=== PATIENT | male | born 1975 | race Caucasian/White ===

== ENCOUNTER 2018-01-25 16:34 | Observation (INO) | payer OTHER ==
[2018-01-25] MEDS ORDERED: MAGNE/ALUM HYDROXD 30 ML UCUP ONE (17:38)
[2018-01-25] MEDS ORDERED: PANTOPRAZOLE 40 MG INJ ONE ×2 (17:38→20:00)
[2018-01-25] MEDS ORDERED: LIDOCAINE VISCOUS 2% SOLN 15 ML UDC ONE (17:39)
[2018-01-25] MEDS ORDERED: ONDANSETRON 4 MG/2 ML VIAL ONE (17:39)
--- NOTE | 2018-01-25 18:03 | EDPHYS ---
Physician Documentation [facility] Unit Name: Venancio Pardo II Age: 42 yrs Sex: Male : 1975 Arrival Date: 01/25/2018 Time: 16:37 Bed 15 Private MD: Jose Juan Marie H ED Physician Lowell Yip HPI: 01/25 17:29 This 42 yrs old Male presents to ER via Ambulatory with complaints of rn Vomiting blood. 17:29 The patient presents to the emergency department vomiting blood. Onset: The rn symptoms/episode began/occurred yesterday. Abdominal pain: described as burning, located in the epigastric area. Modifying factors: The symptoms are alleviated by nothing, the symptoms are aggravated by nothing. Severity of symptoms: At their worst the symptoms were moderate in the emergency department the symptoms are unchanged. The patient has not experienced similar symptoms in the past. The patient has been recently seen by a physician:. Told to come to ER by Dr. Us, has thrown up bright red blood 3 times, + epigastric burning, scheduled for EGD Wednesday. . Historical: - Allergies: 17:12 NKDA; ph - Home Meds: 17:12 Glimepiride Oral [Active]; Hydrochlorothiazide Oral once daily [Active]; levothyroxine ph oral [Active]; Metformin Oral [Active]; phentermine oral oral [Active]; - PMHx: 17:12 ADD/ADHD; Diabetes - NIDDM; Hernia; Hypothyroidism; prostatitis; ph - PSHx: 17:12 Hernia repair; ph - Immunization history:: Adult Immunizations up to date. - Social history:: Smoking status: Patient/guardian denies using tobacco. - Family history:: not pertinent. - Hospitalizations: : No recent hospitalization is reported. ROS: 17:29 Constitutional: Negative for fever, chills, and weight loss, Eyes: Negative for injury, rn pain, redness, and discharge, Neck: Negative for injury, pain, and swelling, Cardiovascular: Negative for chest pain, palpitations, and edema, Respiratory: Negative for shortness of breath, cough, wheezing, and pleuritic chest pain, Abdomen/GI: Negative for diarrhea, and constipation, MS/Extremity: Negative for injury and deformity, Skin: Negative for injury, rash, and discoloration, Neuro: Negative for headache, weakness, numbness, tingling, and seizure. Exam: 17:29 Constitutional: This is a well developed, well nourished patient who is awake, alert, rn and in no acute distress. Sitting in bed legs crossed and talking on phone. Head/Face: Normocephalic, atraumatic. Eyes: Pupils equal round and reactive to light, extra-ocular motions intact. Lids and lashes normal. Conjunctiva and sclera are non-icteric and not injected. Cornea within normal limits. Periorbital areas with no swelling, redness, or edema. Neck: Trachea midline, no thyromegaly or masses palpated, and no cervical lymphadenopathy. Supple, full range of motion without nuchal rigidity, or vertebral point tenderness. No Meningismus. Cardiovascular: Regular rate and rhythm with a normal S1 and S2. No gallops, murmurs, or rubs. Normal PMI, no JVD. No pulse deficits. Respiratory: Lungs have equal breath sounds bilaterally, clear to auscultation and percussion. No rales, rhonchi or wheezes noted. No increased work of breathing, no retractions or nasal flaring. Abdomen/GI: soft, mild epigstric abd tenderness, no rebound, neg quigley MS/ Extremity: Pulses equal, no cyanosis. Neurovascular intact. Full, normal range of motion. Equal circumference. Neuro: Awake and alert, GCS 15, oriented to person, place, time, and situation. Cranial nerves II-XII grossly intact. Motor strength 5/5 in all extremities. Sensory grossly intact. Vital Signs: 17:08 BP 171 / 92; Pulse 87; Resp 18; Pulse Ox 98% on R/A; ph 18:08 BP 155 / 102; Pulse 102; Resp 20; Pulse Ox 99% on R/A; rb1 19:34 BP 155 / 78; Pulse 93; Resp 18; Temp 98.8(O); Pulse Ox 96% on R/A; Weight 122.47 kg (R);bs1 MDM: 17:23 Patient medically screened. rn 18:01 Differential diagnosis: gastritis. Data reviewed: vital signs, nurses notes, lab test rn result(s), and as a result, I will admit patient. Counseling: I had a detailed discussion with the patient and/or guardian regarding: the historical points, exam findings, and any diagnostic results supporting the discharge/admit diagnosis, lab results, the need for further work-up and treatment in the hospital. Response to treatment: the patient's symptoms have mildly improved after treatment, and as a result, I will admit patient. Admission orders: after a detailed discussion of the patient's condition and case, the admit orders are written by me. ED course: Pt sent for EGD by Dr. Us, will admit to Dr. Mcgarry, do not anticipate blood transfusion, sounds most like gastritis/PUD.. 01/25 17:29 Order name: Basic Metabolic Panel; Complete Time: 18:50 rn 01/25 17:29 Order name: CBC with Diff; Complete Time: 18:50 rn 01/25 17:29 Order name: Hepatic Function; Complete Time: 18:50 rn 01/25 17:29 Order name: Lipase; Complete Time: 18:50 rn 01/25 17:29 Order name: Type And Screen rn 01/25 18:10 Order name: Basic Metabolic Panel EDOH 01/25 18:10 Order name: Basic Metabolic Panel EDOH 01/25 18:10 Order name: CBC with Automated Diff EDOH 01/25 18:10 Order name: CBC with Automated Diff EDOH 01/25 18:10 Order name: Hematocrit EDOH 01/25 18:10 Order name: Hematocrit EDOH 01/25 18:10 Order name: Hematocrit EDOH 01/25 18:10 Order name: Hematocrit EDOH 01/25 18:10 Order name: Hemoglobin EDOH 01/25 18:10 Order name: CONS Pharmacy Consult EDOH 01/25 18:10 Order name: CONS Physician Consult EDOH 01/25 18:10 Order name: NPO EDOH 01/25 18:10 Order name: Regular EDOH 01/25 18:10 Order name: EKG Electrocardiogram EDMS 01/25 18:10 Order name: EKG Electrocardiogram EDMS 01/25 18:10 Order name: EKG Electrocardiogram EDMS 01/25 18:10 Order name: EKG Electrocardiogram EDMS 01/25 18:10 Order name: Hemoglobin EDOH 01/25 18:10 Order name: Hemoglobin EDMS 01/25 18:10 Order name: Hemoglobin EDOH 01/25 17:29 Order name: IV Saline Lock; Complete Time: 18:00 rn 01/25 17:29 Order name: Labs collected and sent; Complete Time: 18:00 rn 01/25 18:10 Order name: EKG Electrocardiogram EDMS 01/25 18:10 Order name: EKG Electrocardiogram EDMS 01/25 18:10 Order name: EKG Electrocardiogram EDMS 01/25 18:10 Order name: EKG Electrocardiogram EDMS 01/25 18:10 Order name: EKG Electrocardiogram EDMS 01/25 18:10 Order name: EKG Electrocardiogram EDMS 01/25 18:10 Order name: EKG Electrocardiogram EDMS Administered Medications: 18:10 Drug: ProTONIX 40 mg Route: IVP; Site: right forearm; rb1 18:30 Follow up: Response: No adverse reaction rb1 18:10 Drug: Zofran 4 mg Route: IVP; Site: right forearm; rb1 18:30 Follow up: Response: No adverse reaction; Nausea is decreased rb1 18:20 Drug: GI Cocktail without - (Maalox Suspension 30 ml, Lidocaine Liquid 2 % 15 rb1 ml) {Note: waited for the zofran to have time to work.} Route: PO; 18:50 Follow up: Response: No adverse reaction rb1 18:48 Drug: ProTONIX 8 mg/hr Route: IV; Rate: 25 ml/hr; Site: right forearm; rb1 19:38 Follow up: IV Status: Infusion continued upon admission bs1 19:34 Not Given (Patient Refused): Tylenol 650 mg PO once bs1 Disposition: 01/25/18 18:02 Hospitalization ordered by Niraj Mcgarry for Inpatient Admission. Preliminary diagnosis is Hematemesis. - Bed requested for Telemetry/MedSurg (Inpatient). - Status is Inpatient Admission. bs1 - Condition is Stable. - Problem is new. - Symptoms have improved. UTI on Admission? No Signatures: Dispatcher [employer] EDMS Huong Quintero Roman, MD MD rn Hall, Patricia, RN RN Evelia Mccauley RN RN rb1 Siobhan Hampton RN RN bs1 Corrections: (The following items were deleted from the chart) 18:55 18:02 Hospitalization Ordered by Niraj Mcgarry MD for Inpatient Admission. Preliminary bd diagnosis is Hematemesis. Bed requested for Telemetry/MedSurg (Inpatient). Status is Inpatient Admission. Condition is Stable. Problem is new. Symptoms have improved. UTI on Admission? No. rn 19:39 18:55 01/25/2018 18:02 Hospitalization Ordered by Niraj Mcgarry MD for Inpatient bs1 Admission. Preliminary diagnosis is Hematemesis. Bed requested for Telemetry/MedSurg (Inpatient). Status is Inpatient Admission. Condition is Stable. Problem is new. Symptoms have improved. UTI on Admission? No. bd
--- NOTE | 2018-01-25 18:03 | ER ---
Nurse's Notes [facility] Name: Venancio Pardo II Age: 42 yrs Sex: Male : 1975 Arrival Date: 01/25/2018 Time: 16:37 Bed 15 Private MD: Jose Juan Marie H Diagnosis: Hematemesis Presentation: 01/25 17:09 Presenting complaint: Patient states: " I threw up bright red blood twice last night. I ph went to see Dr Linton today and he scheduled me for a scope on Wednesday and said if I threw up blood again before then to come here." Pt reports 1 episode of vomiting blood since see Royer, c/o LUQ pain, N/V, dizziness. Transition of care: patient was not received from another setting of care. Onset of symptoms was January 25, 2018. Initial Sepsis Screen: Does the patient meet any 2 criteria? No. Patient's initial sepsis screen is negative. Does the patient have a suspected source of infection? No. Patient's initial sepsis screen is negative. Care prior to arrival: None. 17:09 Method Of Arrival: Ambulatory ph 17:09 Acuity: MAURISIO 3 ph Historical: - Allergies: 17:12 NKDA; ph - Home Meds: 17:12 Glimepiride Oral [Active]; Hydrochlorothiazide Oral once daily [Active]; levothyroxine ph oral [Active]; Metformin Oral [Active]; phentermine oral oral [Active]; - PMHx: 17:12 ADD/ADHD; Diabetes - NIDDM; Hernia; Hypothyroidism; prostatitis; ph - PSHx: 17:12 Hernia repair; ph - Immunization history:: Adult Immunizations up to date. - Social history:: Smoking status: Patient/guardian denies using tobacco. - Family history:: not pertinent. - Hospitalizations: : No recent hospitalization is reported. Screenin:10 Abuse screen: Denies threats or abuse. Nutritional screening: No deficits noted. rb1 Tuberculosis screening: No symptoms or risk factors identified. Fall Risk None identified. Assessment: 17:10 General: Appears uncomfortable, obese, Behavior is calm, cooperative, Reports fever rb1 for. Pain: Complains of pain in abdomen Pain currently is 8 out of 10 on a pain scale. Pain began 1 day ago. Neuro: Level of Consciousness is awake, alert, obeys commands, Oriented to person, place, time, situation. Cardiovascular: Capillary refill < 3 seconds is brisk in bilateral fingers. Respiratory: Airway is patent Respiratory effort is even, unlabored, Respiratory pattern is regular, symmetrical. GI: Reports nausea, vomiting. : No signs and/or symptoms were reported regarding the genitourinary system. Derm: Skin is dry, Skin is normal, Skin temperature is warm. 18:08 Reassessment: Patient appears in no apparent distress at this time. Patient and/or rb1 family updated on plan of care and expected duration. Pain level reassessed. Patient is alert, oriented x 3, equal unlabored respirations, skin warm/dry/pink. 19:12 Reassessment: Report received from NADEEM Altamirano. bs1 19:37 Reassessment: Patient appears in no apparent distress at this time. Patient and/or bs1 family updated on plan of care and expected duration. Pain level reassessed. Patient is alert, oriented x 3, equal unlabored respirations, skin warm/dry/pink. Vital Signs: 17:08 BP 171 / 92; Pulse 87; Resp 18; Pulse Ox 98% on R/A; ph 18:08 BP 155 / 102; Pulse 102; Resp 20; Pulse Ox 99% on R/A; rb1 19:34 BP 155 / 78; Pulse 93; Resp 18; Temp 98.8(O); Pulse Ox 96% on R/A; Weight 122.47 kg (R);bs1 ED Course: 16:37 Patient arrived in ED. mr 16:37 None, None is Private Physician. mr 16:37 Jose Juan Marie DO is Private Physician. mr 17:10 Patient has correct armband on for positive identification. Bed in low position. Call rb1 light in reach. Side rails up X 1. Pulse ox on. NIBP on. 17:11 Triage completed. ph 17:12 Arm band placed on. ph 17:23 Lowell Yip MD is Attending Physician. rn 17:36 Evelia Mccauley, NADEEM is Primary Nurse. rb1 17:59 Initial lab(s) drawn, by nd, sent to lab. T\\T\\S collected, blood band applied to patient. dh3 Inserted saline lock: 20 gauge in right forearm, using aseptic technique. Blood collected. 18:02 Niraj Mcgarry MD is Hospitalizing Provider. rn 19:00 Report given to NADEEM Mccann. rb1 19:26 EKG done, by ED staff, reviewed by Lowell Yip MD. count includes the [facility] 19:36 No provider procedures requiring assistance completed. Patient admitted, IV remains in bs1 place. intact. Administered Medications: 18:10 Drug: ProTONIX 40 mg Route: IVP; Site: right forearm; rb1 18:30 Follow up: Response: No adverse reaction rb1 18:10 Drug: Zofran 4 mg Route: IVP; Site: right forearm; rb1 18:30 Follow up: Response: No adverse reaction; Nausea is decreased rb1 18:20 Drug: GI Cocktail without - (Maalox Suspension 30 ml, Lidocaine Liquid 2 % 15 rb1 ml) {Note: waited for the zofran to have time to work.} Route: PO; 18:50 Follow up: Response: No adverse reaction rb1 18:48 Drug: ProTONIX 8 mg/hr Route: IV; Rate: 25 ml/hr; Site: right forearm; rb1 19:38 Follow up: IV Status: Infusion continued upon admission bs1 19:34 Not Given (Patient Refused): Tylenol 650 mg PO once bs1 Outcome: 18:02 Decision to Hospitalize by Provider. rn 19:36 Admitted to Med/surg accompanied by tech, via wheelchair, room 207, per charge nurse bs1 Siomara, states that she will change rooms once patient arrives to unit. 19:36 Condition: stable 19:36 Instructed on the need for admit. 19:39 Patient left the ED. bs1 Signatures: Eloise Miranda Roman, MD MD rn Hall, Patricia, RN RN Evelia Mccauley RN RN [facility] Barth count includes the [facility] Siobhan Hampton, NADEEM RN bs
[2018-01-25 18:05] LABS: Absolute Lymphocytes (CBC) 2.9 K/uL (0.7-4.9); Absolute Neutrophil 7.2 K/uL (1.8-8.0); Basophils % 0.7 % (0-1.3); Eosinophils % 2.1 % (0-4.4); Hematocrit 51.2 % (39.6-49.0); Lymphocytes % 25.3 % (15.3-44.8); MCH 30.5 pg (27.0-35.0); MCV 91.4 fL (80-100); MPV 9.1 fL (7.6-11.3); Monocytes % 8.5 % (3.3-12.3)
[2018-01-25] MEDS ORDERED: ACETAMINOPHEN 500 MG TAB PO PRN (18:05)
[2018-01-25] MEDS ORDERED: ONDANSETRON 4 MG/2 ML VIAL IV PRN (18:05)
[2018-01-25 18:20] LABS: Potassium 3.3 mEq/L (3.6-5.0)
[2018-01-25 18:26] LABS: Albumin 4.5 g/dL (3.2-5.5); Bilirubin Direct 0.1 mg/dL (0-0.2); Bilirubin Total 0.6 mg/dL (0.3-1.2)
[2018-01-25] MEDS ORDERED: NA CHLORIDE 0.9% 250 ML IV SCH (19:00)
[2018-01-25] MEDS ORDERED: ACETAMINOPHEN 325 MG TABLET ONE (19:31)
[2018-01-25] MEDS ORDERED: NA CHLORIDE 0.9% 250 ML ONE (20:00)
--- NOTE | 2018-01-25 20:28 | P.HP ---
Certification for Inpatient Patient admitted to: Inpatient With expected LOS: >2 Midnights Practitioner: I am a practitioner with admitting privileges, knowledge of patient current condition, hospital course, and medical plan of care. Services: Services provided to patient in accordance with Admission requirements found in Title 42 Section 412.3 of the Code of Federal Regulations Patient History Date of Service: 01/25/18 Reason for admission: GIB History of Present Illness: Mr Pardo is a 42 years old male with history of obesity, diabetes mellitus II, Hypothyroidism who start yesterday with bloody vomiting. He had 2 episodes associated with dark stools. He went to see Dr Linton who scheduled for an EGD next Wednesday. He was advised to come to ED if has further bleeding vomiting episode, which happened today. He complaint also of dizziness and epigastric abdominal pain. He denied alcohol intake. He recently had a colonoscopy due to history of hematochezia, which was normal according to the patient. Lab work today remarkable for normal, actually on the higher side of hgb and hct. He is hemodynamically stable. Allergies No Known Drug Allergies Allergy (Verified 12/16/15 08:07) Unknown Home Medications: Ciprofloxacin HCl [Cipro 500 MG Tablet] 500 mg PO BID #14 tab 08/03/16 Ibuprofen [Motrin*] 600 mg PO TIDP PRN #30 tab 08/03/16 Metronidazole [Flagyl] 500 mg PO Q8H #21 tablet 08/03/16 Tamsulosin [Flomax] 0.4 mg PO BEDTIME #30 cap 08/03/16 traMADol HCL [Ultram*] 50 mg PO TIDP PRN #30 tab 08/03/16 - Past Medical/Surgical History Diabetic: No -: Adult attention deficit disorder -: Tobacco abuse -: Left hand surgery -: Right ACL repair -: Umbilical hernia repair -: Nerve blocks to the back - Family History Father -: Heart disease, Diabetes, Cancer - Social History Smoking Status: Former smoker Alcohol use: No CD- Drugs: No Caffeine use: No Place of Residence: Home Review of Systems 10-point ROS is otherwise unremarkable Physical Examination - Vital Signs Temperature: 98.8 F Blood Pressure: 155/78 Pulse: 93 Respirations: 18 - Physical Exam General: Alert, In no apparent distress HEENT: Atraumatic, PERRLA, Mucous membr. moist/pink, EOMI, Sclerae nonicteric Neck: Supple, 2+ carotid pulse no bruit, No LAD, Without JVD or thyroid abnormality Respiratory: Clear to auscultation bilaterally, Normal air movement Cardiovascular: Regular rate/rhythm, Normal S1 S2 Gastrointestinal: Normal bowel sounds, Tenderness (epigastric area to palpation) Musculoskeletal: No tenderness Integumentary: No rashes Neurological: Normal speech, Normal strength at 5/5 x4 extr, Normal tone, Normal affect Lymphatics: No axilla or inguinal lymphadenopathy - Studies Laboratory Data (last 24 hrs) 01/25/18 17:53: WBC 11.3 H, Hgb 17.1, Hct 51.2 H, Plt Count 308 01/25/18 17:53: Sodium 138, Potassium 3.3 L, BUN 11, Creatinine 1.08, Glucose 120, Total Bilirubin 0.6, AST 32, ALT 27, Alkaline Phosphatase 56, Lipase 24 Assessment and Plan - Problems (Diagnosis) (1) GIB (gastrointestinal bleeding) Current Visit: Yes Status: Acute Qualifiers: GI bleed type/associated pathology: unspecified gastrointestinal hemorrhage type Qualified Code(s): K92.2 - Gastrointestinal hemorrhage, unspecified (2) Diabetes mellitus Current Visit: Yes Status: Acute Qualifiers: Diabetes mellitus type: type 2 Diabetes mellitus long-term insulin use: without long-term use Diabetes mellitus complication status: with unspecified complications Qualified Code(s): E11.8 - Type 2 diabetes mellitus with unspecified complications (3) Obesity Current Visit: No Status: Acute Qualifiers: Obesity type: unspecified obesity type Qualified Code(s): E66.01 - Morbid ( severe) obesity due to excess calories - Plan Mr Pardo will be admitted to the hospital due to GIB. He is hemodynamically stable. Will keep him NPO, order IV fluids and continuous infusion of PPI's. Dr Linton will see the patient in AM for EGD. - Advance Directives Does patient have a Living Will: No Does patient have a Durable POA for Healthcare: No - Code Status/Comfort Care Code Status Assessed: Yes Code Status: Full Code
[2018-01-25] MEDS: D5 0.45 NS 1,000 ML IV SCH (20:31)
[2018-01-25] MEDS: PANTOPRAZOLE INJ 80 MG in NA CHLORIDE 0.9% 250 ML IV SCH (20:31)
[2018-01-25] MEDS ORDERED: PANTOPRAZOLE 40 MG INJ IVP SCH (21:00)
[2018-01-25] MEDS: Morphine 2 MG/2 ML SYR IV PRN (22:57)
[2018-01-25 22:58] LABS: Hematocrit 48.8 % (39.6-49.0)
[2018-01-25 23:10] VITALS: BMI 39.2
[2018-01-26 01:47] LABS: Urine Appearance CLEAR; Urine Bilirubin NEGATIVE (NEG); Urine Blood NEGATIVE (NEG); Urine Color YELLOW; Urine Glucose NEGATIVE (NEG); Urine Protein TRACE (NEG); Urine Specific Gravity 1.025 (1.005-1.030); Urine Urobilinogen 0.2 mg/dL (0.2-1.0)
[2018-01-26 01:57] LABS: Urine Microscopic Reflex NO UMIC
[2018-01-26 02:29] LABS: Hematocrit 47.8 % (39.6-49.0)
[2018-01-26 04:49] VITALS: O2SAT 99
[2018-01-26] MEDS: PANTOPRAZOLE INJ 80 MG in NA CHLORIDE 0.9% 250 ML IV SCH (05:00)
[2018-01-26] MEDS: D5 0.45 NS 1,000 ML IV SCH (05:16)
[2018-01-26] MEDS: Morphine 2 MG/2 ML SYR IV PRN ×2 (05:22→10:10)
[2018-01-26 06:41] LABS: Absolute Lymphocytes (CBC) 2.4 K/uL (0.7-4.9); Absolute Monocytes 0.7 K/uL (0.1-1.3); Basophils % 0.4 % (0-1.3); Eosinophils % 3.6 % (0-4.4); Hematocrit 48.6 % (39.6-49.0); Lymphocytes % 32.9 % (15.3-44.8); MCH 30.7 pg (27.0-35.0); MCV 91.5 fL (80-100); MPV 9.2 fL (7.6-11.3); Monocytes % 8.9 % (3.3-12.3); RBC Red Blood Cell Count 5.31 M/uL (4.33-5.43)
[2018-01-26 06:42] LABS: Potassium 3.6 mEq/L (3.6-5.0)
--- NOTE | 2018-01-26 08:49 | EKG ---
Test Date: 2018-01-25 Test Time: 19:14:02 Secretary Bookkeeper: FERNY MEASUREMENT RESULTS: Intervals: Rate: 94 [place]: 134 QRSD: 104 QT: 328 QTc: 410 [place]: P: 41 [place]: 134 QRS: 29 T: 52 INTERPRETIVE STATEMENTS: Normal sinus rhythm Incomplete right bundle branch block Septal infarct, age undetermined Abnormal ECG Compared to ECG 12/15/2015 22:18:20 Myocardial infarct finding now present T-wave abnormality no longer present Electronically Signed On 01-26-18 08:48:19 CDT by Dereck Sharma
--- NOTE | 2018-01-26 11:01 | P.DS ---
Admission Date: 01/25/18 Discharge Date: 01/26/18 Disposition: ROUTINE DISCHARGE Discharge Condition: GOOD Reason for Admission: GIB Consultations: GI doctor Royer Procedures: None - Problems (1) Diabetes mellitus Onset Date: 01/26/18 Current Visit: Yes Status: Acute Qualifiers: Diabetes mellitus type: type 2 Diabetes mellitus booking supervisor insulin use: without booking supervisor use Diabetes mellitus complication status: with unspecified complications Qualified Code(s): E11.8 - Type 2 diabetes mellitus with unspecified complications (2) GIB (gastrointestinal bleeding) Onset Date: 01/26/18 Current Visit: Yes Status: Acute Qualifiers: GI bleed type/associated pathology: unspecified gastrointestinal hemorrhage type Qualified Code(s): K92.2 - Gastrointestinal hemorrhage, unspecified (3) Obesity Onset Date: 01/26/18 Current Visit: Yes Status: Acute Qualifiers: Obesity type: unspecified obesity type Qualified Code(s): E66.01 - Morbid ( severe) obesity due to excess calories (4) Fatty liver Current Visit: No Status: Chronic Brief History of Present Illness: From H and P Mr Pardo is a 42 years old male with history of obesity, diabetes mellitus II, Hypothyroidism who start yesterday with bloody vomiting. He had 2 episodes associated with dark stools. He went to see Dr Linton who scheduled for an EGD next Wednesday. He was advised to come to ED if has further bleeding vomiting episode, which happened today. He complaint also of dizziness and epigastric abdominal pain. He denied alcohol intake. He recently had a colonoscopy due to history of hematochezia, which was normal according to the patient. Lab work today remarkable for normal, actually on the higher side of hgb and hct. He is hemodynamically stable. Hospital Course: Patient is a 42-year-old male who was sent to the hospital from GI doctor's office for hematemesis. Patient was scheduled for EGD later on this week at the GI doctors office however came into the ER for further evaluation of multiple episodes of hematemesis. Patient's hemoglobin remained stable around 16 did not have any further episodes of hematemesis. Patient was then cleared for discharge from GI standpoint to follow up with them as an outpatient to have a EGD as scheduled this week. Vital Signs/Physical Exam: Temp Pulse Resp BP Pulse Ox 97.6 F 86 16 121/71 97 01/26/18 08:00 01/26/18 08:00 01/26/18 08:00 01/26/18 08:00 01/26/18 08:00 General: Alert, In no apparent distress, Oriented x3, Obese HEENT: Atraumatic, PERRLA, EOMI Neck: Supple, JVD not distended Respiratory: Clear to auscultation bilaterally, Normal air movement Cardiovascular: No edema, Normal pulses, Regular rate/rhythm, Normal S1 S2 Gastrointestinal: Normal bowel sounds, Soft and benign, Non-distended, No tenderness Musculoskeletal: No clubbing, No tenderness Integumentary: No rashes, No cyanosis Neurological: Normal speech, Normal tone, Normal affect Lymphatics: No axilla or inguinal lymphadenopathy Laboratory Data at Discharge: WBC 7.4 K/uL (4.3-10.9) D 01/26/18 05:43 Hgb 16.3 g/dL (13.6-17.9) 01/26/18 05:43 Hct 48.6 % (39.6-49.0) 01/26/18 05:43 Plt Count 248 K/uL (152-406) 01/26/18 05:43 Sodium 138 mEq/L (135-145) 01/26/18 05:43 Potassium 3.6 mEq/L (3.6-5.0) 01/26/18 05:43 BUN 10 mg/dL (6-20) 01/26/18 05:43 Creatinine 1.08 mg/dL (0.61-1.24) 01/26/18 05:43 Glucose 114 mg/dL (65-120) 01/26/18 05:43 Total Bilirubin 0.6 mg/dL (0.3-1.2) 01/25/18 17:53 AST 32 IU/L (10-42) 01/25/18 17:53 ALT 27 IU/L (10-60) 01/25/18 17:53 Alkaline Phosphatase 56 IU/L (42-121) 01/25/18 17:53 Lipase 24 U/L (22-51) 01/25/18 17:53 Home Medications: Codeine/APAP [Tylenol #3*] 1 tab PO Q6H PRN 01/25/18 Diazepam [Valium] 10 mg PO BEDTIME 01/25/18 Glimepiride [Amaryl*] 2 mg PO BID 01/25/18 Hydrochlorothiazide [Hydrochlorothiazide*] 25 mg PO DAILY 01/25/18 Hydrocodone Bit/Acetaminophen [Hydrocodon-Acetaminophn 10-325] 1 tab PO Q6H PRN 01/25/18 Levothyroxine [Synthroid*] 0.05 mg PO DAILY 01/25/18 Metformin ER [Glucophage ER*] 500 mg PO BID 01/25/18 Phentermine HCl [Adipex-P] 1 tab PO BID 01/25/18 Tadalafil [Cialis] 20 mg PO DIRECTED 01/25/18 traMADol HCL [Ultram*] 50 mg PO Q6H PRN 01/25/18 Patient Discharge Instructions: f/up w PCP in 2-3 days. f/up w Dr. Royer SIMMS in 2 days for EGD. Return to ER for worsening condition Diet: ADA Activity: Ad janelle
[2018-01-26 12:38] VITALS: BP 156/72; TEMP 97.8
== END 2018-01-26 13:44 | disposition home or self-care (01) ==
LOC: ER 16:34 → INTOOBSV 18:04 → ERHOLD 18:04 → 2ND 19:20
PROVIDERS: ADMIT Family Medicine; ATTEND Internal Medicine
DX: K92.0 Hematemesis (principal); E11.9 Type 2 diabetes mellitus without complications; E66.01 Morbid (severe) obesity due to excess calories; Z68.39 Body mass index [BMI] 39.0-39.9, adult; K76.0 Fatty (change of) liver, not elsewhere classified; E03.9 Hypothyroidism, unspecified
CPT/HCPCS: 36415; 80048; 80076; 81003; 83690; 85014; 85018; 85025; 86850; 86900; 86901; 93005; 94760; 96365; 96375; 99285; C9113; G0378; J2270; J2405

== ENCOUNTER 2018-02-12 14:05 | Emergency (ER) | payer OTHER ==
[2018-02-12] MEDS ORDERED: IPRATROPIUM BROM 0.5MG/2.5ML ONE (15:07)
[2018-02-12] MEDS ORDERED: ALBUTEROL 2.5 MG/3 ML NEB SOL ONE (15:07)
[2018-02-12 15:09] LABS: Absolute Lymphocytes (CBC) 3.7 K/uL (0.7-4.9); Absolute Neutrophil 6.2 K/uL (1.8-8.0); Basophils % 0.7 % (0-1.3); Hematocrit 51.8 % (39.6-49.0); Lymphocytes % 32.4 % (15.3-44.8); MCH 30.5 pg (27.0-35.0); MCV 90.6 fL (80-100); MPV 9.5 fL (7.6-11.3); Monocytes % 8.8 % (3.3-12.3); RBC Red Blood Cell Count 5.72 M/uL (4.33-5.43)
[2018-02-12 15:11] LABS: BUN Blood Urea Nitrogen 13 mg/dL (6-20); Bicarbonate 29 mEq/L (21-31); Glucose Level 72 mg/dL (65-120); Potassium 3.4 mEq/L (3.6-5.0); Sodium Level 136 mEq/L (135-145)
--- NOTE | 2018-02-12 15:17 | RAD REPORT ---
EXAM DESCRIPTION: RAD - Chest Pa And Lat (2 Views) - 02/12/2018 3:00 pm CLINICAL HISTORY: Abnormal EKG, cough and congestion COMPARISON: Single-view chest July 2016 TECHNIQUE: PA and lateral views of the chest were obtained. FINDINGS: The lungs are clear. Heart size is normal and central vasculature is within normal limit s. No pleural effusion or pneumothorax seen. No acute bony finding noted. No aortic abnormality. IMPRESSION: No acute cardiopulmonary process. No significant interval change
--- NOTE | 2018-02-12 15:32 | ER ---
Nurse's Notes [facility] Name: Venancio Pardo II Age: 42 yrs Sex: Male : 1975 Arrival Date: 02/12/2018 Time: 14:06 Bed 25 Private MD: Jose Juan Marie H Diagnosis: Acute bronchitis;Essential (primary) hypertension Presentation: 02/12 14:10 Presenting complaint: Patient states: sent by [facility] for abnormal EKG. Pt sv stated that he's been having intermittent midsternal chest pain for "last couple of weeks" and "feels like I was going to ." Productive cough with green sputum for a couple of days, fever, blurry vision, migraine, hemoptysis and rectal bleeding but reports that he recently had 7 pre-cancerous ulcers removed from his stomach. Transition of care: patient was not received from another setting of care. Onset of symptoms was January 2018. Risk Assessment: Do you want to hurt yourself or someone else? Patient reports no desire to harm self or others. Care prior to arrival: None. 14:10 Method Of Arrival: Wheelchair sv 14:10 Acuity: MAURISIO 3 sv 16:07 Initial Sepsis Screen: Does the patient meet any 2 criteria? No. Patient's initial tl3 sepsis screen is negative. Does the patient have a suspected source of infection? No. Patient's initial sepsis screen is negative. Triage Assessment: 16:06 Headache History: The patient has had previous headaches. General: Appears distressed, tl3 uncomfortable, well groomed, well developed, well nourished. Pain: Pain currently is 8 out of 10 on a pain scale. Also complains of. Pain: Pain began gradually. Historical: - Allergies: 14:19 NKDA; sv - Home Meds: 14:19 metformin Oral [Active]; levothyroxine oral [Active]; Glimepiride Oral [Active]; sv Hydrochlorothiazide Oral once daily [Active]; phentermine Oral [Active]; Protonix Oral [Active]; Valium Oral [Active]; Tramadol Oral [Active]; Vicodin 5/500 Oral [Active]; Tylenol #3 Oral [Active]; 16:08 Metformin Oral [Active]; tl3 - PMHx: 14:19 ADD/ADHD; Diabetes - NIDDM; Hernia; Hypothyroidism; prostatitis; sv - PSHx: 14:19 Hernia repair; pre-cancerous ulcers removed; sv - Immunization history:: Adult Immunizations up to date. - Social history:: Smoking status: unknown. - Ebola Screening: : Patient denies travel to an Ebola-affected area in the 21 days before illness onset. Screenin:54 Abuse screen: Denies threats or abuse. Nutritional screening: No deficits noted. tl3 Tuberculosis screening: No symptoms or risk factors identified. Fall Risk None identified. Assessment: 14:54 General: Appears uncomfortable, obese, well groomed, well developed, well nourished, tl3 Behavior is calm, cooperative, appropriate for age. Pain: Complains of pain in headache. Neuro: Level of Consciousness is awake, alert, obeys commands, Oriented to person, place, time, situation, Appropriate for age. Cardiovascular: Heart tones S1 S2 present Patient's skin is warm and dry. Respiratory: Airway is patent Respiratory effort is even, unlabored, Respiratory pattern is regular, symmetrical. GI:. : No signs and/or symptoms were reported regarding the genitourinary system. EENT: No signs and/or symptoms were reported regarding the EENT system. Derm: No signs and/or symptoms reported regarding the dermatologic system. 15:55 Reassessment: Patient appears in no apparent distress at this time. No changes from tl3 previously documented assessment. Patient and/or family updated on plan of care and expected duration. Pain level reassessed. Patient is alert, oriented x 3, equal unlabored respirations, skin warm/dry/pink. Dr Galvan discussing POC with pt. Vital Signs: 14:54 BP 161 / 100; Pulse 93; Resp 20; Pulse Ox 95% on R/A; tl3 15:55 BP 176 / 109; Pulse 90; Resp 18; Pulse Ox 95% ; tl3 ED Course: 14:06 Patient arrived in ED. as 14:06 Jose Juan Marie DO is Private Physician. as 14:11 Estuardo Galvan MD is Attending Physician. gs 14:17 Triage completed. sv 14:45 EKG done, by ED staff, reviewed by Estuardo Galvan MD. mh5 14:45 Patient has correct armband on for positive identification. Placed in gown. Bed in low mh5 position. Call light in reach. Side rails up X 1. bag bundler on. Pulse ox on. NIBP on. 14:54 Rosio Sadler, RN is Primary Nurse. tl3 14:54 No provider procedures requiring assistance completed. Initial lab(s) drawn, by dc, tl3 sent to lab. X-ray(s) taken. Inserted saline lock: 20 gauge in right antecubital area, using aseptic technique. Blood collected. 14:59 XRAY Chest Pa And Lat (2 Views) In Process Unspecified. EDMS 15:55 IV discontinued, intact, bleeding controlled, No redness/swelling at site. Pressure tl3 dressing applied. 16:08 Arm band placed on right wrist. tl3 Administered Medications: 15:07 Drug: Albuterol 2.5 mg Route: Inhalation; tl3 15:57 Follow up: Response: No adverse reaction tl3 15:07 Drug: AtroVENT Aerosol 0.5 mg Route: Inhalation; tl3 15:57 Follow up: Response: No adverse reaction tl3 Outcome: 15:32 Discharge ordered by . 16:06 Discharged to home ambulatory. tl3 16:06 Condition: good 16:06 Discharge instructions given to patient, Instructed on discharge instructions, follow up and referral plans. medication usage, Demonstrated understanding of instructions, follow-up care, medications. 16:08 Patient left the ED. tl3 Signatures: Dispatcher [employer] EDMS Siomara Cunningham, RN RN Anai Cheney [facility] Estuardo Galvan MD MD gs Lowrey, Tammy, RN RN tl3 Corrections: (The following items were deleted from the chart) 14:19 14:10 Presenting complaint: Patient states: sent by [facility] for abnormal sv EKG. Pt stated that he's been having intermittent midsternal chest pain for "last couple of weeks" and "feels like I was going to ." Productive cough with green sputum for a couple of days, fever, hemoptysis and rectal bleeding but reports that he recently had 7 pre-cancerous ulcers removed from his stomach. sv
--- NOTE | 2018-02-12 15:32 | EDPHYS ---
Physician Documentation [facility] Name: Venancio Pardo II Age: 42 yrs Sex: Male : 1975 Arrival Date: 02/12/2018 Time: 14:06 Bed 25 Private MD: Jose Juan Marie H ED Physician Estuardo Galvan HPI: 02/12 15:53 This 42 yrs old Male presents to ER via Wheelchair with complaints of Cough. gs 15:53 Onset: The symptoms/episode began/occurred 2 day(s) ago. Severity of symptoms: At their gs worst the symptoms were moderate, in the emergency department the symptoms are unchanged. Modifying factors: The symptoms are alleviated by nothing, the symptoms are aggravated by nothing. Associated signs and symptoms: Pertinent positives: chest pain, with cough, sore throat, Pertinent negatives: fever. The patient has not experienced similar symptoms in the past. went to urgent care for cough uri symptoms, chest pain with cough did ekg felt was abnormal and needed ed evaluation. Historical: - Allergies: 14:19 NKDA; sv - Home Meds: 14:19 metformin Oral [Active]; levothyroxine oral [Active]; Glimepiride Oral [Active]; sv Hydrochlorothiazide Oral once daily [Active]; phentermine Oral [Active]; Protonix Oral [Active]; Valium Oral [Active]; Tramadol Oral [Active]; Vicodin 5/500 Oral [Active]; Tylenol #3 Oral [Active]; 16:08 Metformin Oral [Active]; tl3 - PMHx: 14:19 ADD/ADHD; Diabetes - NIDDM; Hernia; Hypothyroidism; prostatitis; sv - PSHx: 14:19 Hernia repair; pre-cancerous ulcers removed; sv - Immunization history:: Adult Immunizations up to date. - Social history:: Smoking status: unknown. - Ebola Screening: : Patient denies travel to an Ebola-affected area in the 21 days before illness onset. ROS: 15:53 Neuro: Positive for headache, intermittent. gs 15:53 All other systems are negative. Exam: 15:53 Head/Face: Normocephalic, atraumatic. Eyes: Pupils equal round and reactive to light, gs extra-ocular motions intact. Lids and lashes normal. Conjunctiva and sclera are non-icteric and not injected. Cornea within normal limits. Periorbital areas with no swelling, redness, or edema. ENT: Nares patent. No nasal discharge, no septal abnormalities noted. Tympanic membranes are normal and external auditory canals are clear. Oropharynx with no redness, swelling, or masses, exudates, or evidence of obstruction, uvula midline. Mucous membranes moist. Neck: Trachea midline, no thyromegaly or masses palpated, and no cervical lymphadenopathy. Supple, full range of motion without nuchal rigidity, or vertebral point tenderness. No Meningismus. Chest/axilla: Normal chest wall appearance and motion. Nontender with no deformity. No lesions are appreciated. Cardiovascular: Regular rate and rhythm with a normal S1 and S2. No gallops, murmurs, or rubs. Normal PMI, no JVD. No pulse deficits. Respiratory: Lungs have equal breath sounds bilaterally, clear to auscultation and percussion. No rales, rhonchi or wheezes noted. No increased work of breathing, no retractions or nasal flaring. Abdomen/GI: Soft, non-tender, with normal bowel sounds. No distension or tympany. No guarding or rebound. No evidence of tenderness throughout. Back: No spinal tenderness. No costovertebral tenderness. Full range of motion. Skin: Warm, dry with normal turgor. Normal color with no rashes, no lesions, and no evidence of cellulitis. MS/ Extremity: Pulses equal, no cyanosis. Neurovascular intact. Full, normal range of motion. Neuro: Awake and alert, GCS 15, oriented to person, place, time, and situation. Cranial nerves II-XII grossly intact. Motor strength 5/5 in all extremities. Sensory grossly intact. Cerebellar exam normal. Normal gait. 15:53 Constitutional: The patient appears alert, awake. 15:53 ECG was reviewed by the Attending Physician. Vital Signs: 14:54 BP 161 / 100; Pulse 93; Resp 20; Pulse Ox 95% on R/A; tl3 15:55 BP 176 / 109; Pulse 90; Resp 18; Pulse Ox 95% ; tl3 MDM: 14:30 Patient medically screened. 15:53 Differential Diagnosis: Bronchitis Viral Syndrome Pneumonia. Data reviewed: vital gs signs, nurses notes. Response to treatment: the patient's symptoms have markedly improved after treatment, the patient's condition has returned to base line, and as a result, I will discharge patient. 02/12 14:34 Order name: Basic Metabolic Panel; Complete Time: 15:22 gs 02/12 14:34 Order name: CBC with Diff; Complete Time: 15:31 gs 02/12 14:34 Order name: Troponin (emerg Dept Use Only); Complete Time: 15:22 gs 02/12 14:34 Order name: XRAY Chest Pa And Lat (2 Views); Complete Time: 15:22 02/12 14:34 Order name: EKG; Complete Time: 14:34 02/12 14:34 Order name: Cardiac monitoring; Complete Time: 14:46 gs 02/12 14:34 Order name: EKG - Nurse/Tech; Complete Time: 14:46 02/12 14:34 Order name: IV Saline Lock; Complete Time: 15:07 02/12 14:34 Order name: Labs collected and sent; Complete Time: 15:07 02/12 14:34 Order name: O2 Per Protocol; Complete Time: 15:07 02/12 14:34 Order name: O2 Sat Monitoring; Complete Time: 15:08 gs EC:53 Rate is 87 beats/min. Rhythm is regular. AL interval is normal. QRS interval is gs prolonged. T waves are Normal. No ST changes noted. Clinical impression: Abnormal EKG without significant change. Interpreted by me. Administered Medications: 15:07 Drug: Albuterol 2.5 mg Route: Inhalation; tl3 15:57 Follow up: Response: No adverse reaction tl3 15:07 Drug: AtroVENT Aerosol 0.5 mg Route: Inhalation; tl3 15:57 Follow up: Response: No adverse reaction tl3 Disposition: 02/12/18 15:32 Discharged to Home. Impression: Acute bronchitis, Essential (primary) hypertension. - Condition is Stable. - Discharge Instructions: Acute Bronchitis, Managing Your High Blood Pressure. - Prescriptions for Prednisone 20 mg Oral Tablet - take 1 tablet by ORAL route once daily for 5 days; 5 tablet. Albuterol Sulfate 90 mcg/actuation - inhale 1-2 puff by INHALATION route every 4-6 hours; 1 Inhaler. - Medication Reconciliation Form, Thank You Letter, Antibiotic Education, Prescription Opioid Use form. - Follow up: Private Physician; When: 2 - 3 days; Reason: Re-evaluation by your physician. Signatures: Dispatcher [employer] Siomara Warren RN RN Estuardo Galvan MD MD Rosio Sadler RN RN tl3 Corrections: (The following items were deleted from the chart) 16:08 15:32 02/12/2018 15:32 Discharged to Home. Impression: Acute bronchitis; Essential tl3 (primary) hypertension. Condition is Stable. Forms are Medication Reconciliation Form, Thank You Letter, Antibiotic Education, Prescription Opioid Use. Follow up: Private Physician; When: 2 - 3 days; Reason: Re-evaluation by your physician. gs
[2018-02-12 16:11] VITALS: O2SAT 95
[2018-02-12 16:13] VITALS: BP 176/109
--- NOTE | 2018-02-13 10:42 | EKG ---
Test Date: 2018-02-12 Test Time: 14:23:51 Educational Recruiter: SHELBY MEASUREMENT RESULTS: Intervals: Rate: 87 NH: 148 QRSD: 104 QT: 360 QTc: 433 Schlater: P: 34 NH: 148 QRS: 7 T: 26 INTERPRETIVE STATEMENTS: Normal sinus rhythm Incomplete right bundle branch block Septal infarct, age undetermined Abnormal ECG Compared to ECG 01/25/2018 19:14:02 No significant changes Electronically Signed On 02-13-18 10:41:50 CDT by Dereck Sharma
== END 2018-02-12 16:08 | disposition home or self-care (01) ==
LOC: ER 14:05
DX: J20.9 Acute bronchitis, unspecified (principal); F90.9 Attention-deficit hyperactivity disorder, unspecified type; E11.9 Type 2 diabetes mellitus without complications; Z79.4 Long term (current) use of insulin; E03.9 Hypothyroidism, unspecified; N41.9 Inflammatory disease of prostate, unspecified; I10 Essential (primary) hypertension
CPT/HCPCS: 36415; 71046; 80048; 84484; 85025; 93005; 99285

== ENCOUNTER 2018-03-25 21:06 | Emergency (ER) | payer OTHER ==
[2018-03-25] MEDS ORDERED: LIDOCAINE 1% MPF 5 ML VIAL ONE (21:49)
--- NOTE | 2018-03-25 23:42 | EDPHYS ---
Physician Documentation [facility] Name: Venancio Pardo II Age: 42 yrs Sex: Male : 1975 Arrival Date: 03/25/2018 Time: 21:07 Bed 20 Private MD: Jose Juan Marie H ED Physician Lowell Yip HPI: 03/25 23:37 This 42 yrs old Male presents to ER via Ambulatory with complaints of rn Splinter in but cheek. 23:37 The patient or guardian reports the patient has a suspected foreign body, buttocks. The rn reported likely foreign body is sliver of wood. Onset: The symptoms/episode began/occurred this morning. Current symptoms: foreign body sensation. The patient has not experienced similar symptoms in the past. Reports rubbed against fence, felt a poke, when took shorts down, heard a snap, unable to remove with tweezers. Feels like splinter in butt cheek.. Historical: - Allergies: 21:34 NKDA; aj - Home Meds: 21:34 Glimepiride Oral [Active]; Hydrochlorothiazide Oral once daily [Active]; levothyroxine aj oral [Active]; Metformin Oral [Active]; phentermine Oral [Active]; Protonix Oral [Active]; Valium Oral [Active]; - PMHx: 21:34 ADD/ADHD; Diabetes - NIDDM; Hernia; Hypothyroidism; prostatitis; aj - PSHx: 21:34 Hernia repair; pre-cancerous ulcers removed; shoulder; aj - Immunization history:: Adult Immunizations up to date. - Social history:: Smoking status: Patient/guardian denies using tobacco. - Ebola Screening: : Patient negative for fever greater than or equal to 101.5 degrees Fahrenheit, and additional compatible Ebola Virus Disease symptoms Patient denies exposure to infectious person Patient denies travel to an Ebola-affected area in the 21 days before illness onset No symptoms or risks identified at this time. - Family history:: not pertinent. - Hospitalizations: : No recent hospitalization is reported. ROS: 23:37 Constitutional: Negative for fever, chills, and weight loss, Skin: + splinter left rn buttocks Exam: 23:37 Constitutional: This is a well developed, well nourished patient who is awake, alert, rn and in no acute distress. Skin: Warm, dry, + small area of swelling and tenderness left buttocks, no visible foreign body. Vital Signs: 21:34 BP 153 / 108; Pulse 92; Resp 18; Temp 98.2; Pulse Ox 95% on R/A; Weight 122.47 kg; aj Height 5 ft. 10 in. (177.80 cm); 23:14 BP 141 / 89; Pulse 78; Resp 17 S; Pulse Ox 97% on R/A; jd3 21:34 Body Mass Index 38.74 (122.47 kg, 177.80 cm) Procedures: 23:37 Foreign Body Removal: sliver of wood, from the buttocks, by using a hemostat, incising rn to remove, The patient tolerated the removal well, sutured with absorbable suture. Nothing visualized with u/s, felt something under skin and patient tender, he requested I try with incision anyway, attempted foreign body removal for 1 hour, also using u/s guidance, nothing obvious removed, single suture placed after cleaning, patient feels like foreign body sensation gone but not sure. . MDM: 21:37 Patient medically screened. rn 23:37 Data reviewed: vital signs, nurses notes, and as a result, I will discharge patient. rn Counseling: I had a detailed discussion with the patient and/or guardian regarding: the historical points, exam findings, and any diagnostic results supporting the discharge/admit diagnosis, the need for outpatient follow up, to return to the emergency department if symptoms worsen or persist or if there are any questions or concerns that arise at home. Response to treatment: the patient's symptoms have mildly improved after treatment, and as a result, I will discharge patient. Special discussion: I discussed with the patient/guardian in detail that at this point there is no indication for admission to the hospital. It is understood, however, that if the symptoms persist or worsen the patient needs to return immediately for re-evaluation. 03/25 21:50 Order name: Suture Tray at Bedside; Complete Time: 21:50 jd3 03/25 21:50 Order name: Scalpel: 11 blade to bedside; Complete Time: 21:50 jd3 Administered Medications: 22:18 Drug: Lidocaine (1 %) 2 vials {Note: given by Dr. Yip.} Volume: 5 ml; Route: jd3 Infiltration; Disposition: 03/25/18 23:41 Discharged to Home. Impression: Puncture wound with foreign body of left buttock. - Condition is Stable. - Discharge Instructions: Foreign Body. - Prescriptions for Clindamycin HCl 300 mg Oral Capsule - take 1 capsule by ORAL route every 6 hours for 10 days; 40 capsule. - Medication Reconciliation Form, Thank You Letter, Antibiotic Education, Prescription Opioid Use form. - Follow up: Marcelo Nicole MD; When: As needed; Reason: If symptoms return, Recheck today's complaints, Continuance of care, Re-evaluation by your physician. - Problem is new. - Symptoms have improved. Signatures: Chica Lucero RN RN Lowell Barbosa MD MD rn Davies, Jonathon, RN RN jd3 Corrections: (The following items were deleted from the chart) 03/26 00:03 03/25 23:41 03/25/2018 23:41 Discharged to Home. Impression: Puncture wound with jd3 foreign body of left buttock. Condition is Stable. Forms are Medication Reconciliation Form, Thank You Letter, Antibiotic Education, Prescription Opioid Use. Follow up: Marcelo Nicole; When: As needed; Reason: If symptoms return, Recheck today's complaints, Continuance of care, Re-evaluation by your physician. Problem is new. Symptoms have improved. rn
--- NOTE | 2018-03-25 23:42 | ER ---
Nurse's Notes [facility] Name: Venancio Pardo II Age: 42 yrs Sex: Male : 1975 Arrival Date: 03/25/2018 Time: 21:07 Bed 20 Private MD: Jose Juan Marie H Diagnosis: Puncture wound with foreign body of left buttock Presentation: 03/25 21:31 Presenting complaint: Patient states: "splinter" in Left gluteal cheek since 1100 this aj AM. Transition of care: patient was not received from another setting of care. Onset of symptoms was March 25, 2018. Risk Assessment: Do you want to hurt yourself or someone else? Patient reports no desire to harm self or others. Initial Sepsis Screen: Does the patient meet any 2 criteria? No. Patient's initial sepsis screen is negative. Does the patient have a suspected source of infection? No. Patient's initial sepsis screen is negative. Care prior to arrival: None. 21:31 Method Of Arrival: Ambulatory aj 21:31 Acuity: MAURISIO 4 aj Triage Assessment: 21:34 General: Appears in no apparent distress. comfortable, Behavior is calm, cooperative, aj appropriate for age. Pain: Complains of pain in left gluteus yefri. Neuro: Level of Consciousness is awake, alert, obeys commands, Oriented to person, place, time, situation, Appropriate for age. Respiratory: Airway is patent Trachea midline Respiratory effort is even, unlabored, Respiratory pattern is regular, symmetrical. Derm: Skin is intact, is healthy with good turgor, Skin is pink, warm \\T\\ dry. normal. Injury Description: Puncture sustained to left gluteus yefri. Historical: - Allergies: 21:34 NKDA; aj - Home Meds: 21:34 Glimepiride Oral [Active]; Hydrochlorothiazide Oral once daily [Active]; levothyroxine aj oral [Active]; Metformin Oral [Active]; phentermine Oral [Active]; Protonix Oral [Active]; Valium Oral [Active]; - PMHx: 21:34 ADD/ADHD; Diabetes - NIDDM; Hernia; Hypothyroidism; prostatitis; aj - PSHx: 21:34 Hernia repair; pre-cancerous ulcers removed; shoulder; aj - Immunization history:: Adult Immunizations up to date. - Social history:: Smoking status: Patient/guardian denies using tobacco. - Ebola Screening: : Patient negative for fever greater than or equal to 101.5 degrees Fahrenheit, and additional compatible Ebola Virus Disease symptoms Patient denies exposure to infectious person Patient denies travel to an Ebola-affected area in the 21 days before illness onset No symptoms or risks identified at this time. - Family history:: not pertinent. - Hospitalizations: : No recent hospitalization is reported. Screenin:35 Abuse screen: Denies threats or abuse. Nutritional screening: No deficits noted. jd3 Tuberculosis screening: No symptoms or risk factors identified. Fall Risk Ambulatory Aid- None/Bed Rest/Nurse Assist (0 pts). Gait- Normal/Bed Rest/Wheelchair (0 pts) Mental Status- Oriented to own ability (0 pts). Total Hyde Fall Scale indicates No Risk (0-24 pts). Assessment: 21:40 General: Appears in no apparent distress. uncomfortable, Behavior is calm, cooperative, jd3 appropriate for age. Pain: Complains of pain in buttocks Quality of pain is described as sharp. Neuro: Level of Consciousness is awake, alert, obeys commands, Oriented to person, place, time, situation. Cardiovascular: Heart tones S1 S2 present Capillary refill < 3 seconds Patient's skin is warm and dry. Respiratory: Airway is patent Respiratory effort is even, unlabored, Respiratory pattern is regular, symmetrical. GI: No signs and/or symptoms were reported involving the gastrointestinal system. : No signs and/or symptoms were reported regarding the genitourinary system. EENT: No signs and/or symptoms were reported regarding the EENT system. Derm: Skin is intact, Skin is dry, Skin is normal, Skin temperature is warm Reports having splinter from wooden fence go into left buttocks. Musculoskeletal: Circulation, motion, and sensation intact. Range of motion: intact in all extremities. 22:35 Reassessment: Patient appears in no apparent distress at this time. Patient and/or jd3 family updated on plan of care and expected duration. Pain level reassessed. Patient is alert, oriented x 3, equal unlabored respirations, skin warm/dry/pink. 23:15 Reassessment: Patient appears in no apparent distress at this time. Patient and/or jd3 family updated on plan of care and expected duration. Pain level reassessed. Patient is alert, oriented x 3, equal unlabored respirations, skin warm/dry/pink. 03/26 00:00 Reassessment: Patient appears in no apparent distress at this time. Patient and/or jd3 family updated on plan of care and expected duration. Pain level reassessed. Patient is alert, oriented x 3, equal unlabored respirations, skin warm/dry/pink. pt reported understanding of discharge instructions, even and steady gait upon discharge. Vital Signs: 03/25 21:34 BP 153 / 108; Pulse 92; Resp 18; Temp 98.2; Pulse Ox 95% on R/A; Weight 122.47 kg; aj Height 5 ft. 10 in. (177.80 cm); 23:14 BP 141 / 89; Pulse 78; Resp 17 S; Pulse Ox 97% on R/A; jd3 21:34 Body Mass Index 38.74 (122.47 kg, 177.80 cm) ED Course: 21:07 Patient arrived in ED. es 21:10 Jose Juan Marie DO is Private Physician. es 21:32 Triage completed. aj 21:34 Arm band placed on right wrist. Patient placed in an exam room. aj 21:37 Lowell Yip MD is Attending Physician. rn 21:42 Wilder Andres RN is Primary Nurse. j 22:36 Patient has correct armband on for positive identification. Bed in low position. Call [facility] light in reach. Side rails up X 1. Adult w/ patient. 23:41 Marcelo Nicole MD is Referral Physician. rn 03/26 00:01 foreign body removed from under skin. Patient did not have IV access during this [facility] emergency room visit. Administered Medications: 03/25 22:18 Drug: Lidocaine (1 %) 2 vials {Note: given by Dr. Yip.} Volume: 5 ml; Route: jd3 Infiltration; Outcome: 23:41 Discharge ordered by . rn 03/26 00:02 Discharged to home ambulatory. [facility] Condition: stable Discharge instructions given to patient, Instructed on discharge instructions, follow up and referral plans. medication usage, Demonstrated understanding of instructions, follow-up care, medications, Prescriptions given X 1. 00:03 Patient left the ED. j Signatures: Chica Lucero RN RN Roshni Cheung Roman, MD MD rn Davies, Jonathon, RN RN jd3 Corrections: (The following items were deleted from the chart) 03/25 22: 22:00 General: Appears in no apparent distress. uncomfortable, Behavior is calm, jd3 cooperative, appropriate for age, jd3 : 22:00 Pain: Complains of pain in buttocks Quality of pain is described as sharp, jd3 jd3 : 22:00 Neuro: Level of Consciousness is awake, alert, obeys commands, Oriented to jd3 person, place, time, situation, jd3 : 22:00 Cardiovascular: Heart tones S1 S2 present Capillary refill < 3 seconds Patient's jd3 skin is warm and dry. jd3 : 22:00 Respiratory: Airway is patent Respiratory effort is even, unlabored, Respiratory jd3 pattern is regular, symmetrical, jd3 : 22:00 GI: No signs and/or symptoms were reported involving the gastrointestinal system. jd3 jd3 : 22:00 : No signs and/or symptoms were reported regarding the genitourinary system. jd3jd3 : 22:00 EENT: No signs and/or symptoms were reported regarding the EENT system. jd3 jd3 : 22:00 Derm: Skin is intact, Skin is dry, Skin is normal, Skin temperature is warm jd3 Reports having splinter from wooden fence go into left buttocks. jd3 :35 22:00 Musculoskeletal: Circulation, motion, and sensation intact. Range of motion: jd3 intact in all extremities, jd3
[2018-03-26 00:17] VITALS: TEMP 98.2
[2018-03-26 00:18] VITALS: BP 141/89; O2SAT 97
== END 2018-03-26 00:03 | disposition home or self-care (01) ==
LOC: ER 21:06
PROC: 0JC Subcutaneous Tissue and Fascia, Extirpation (ICD-10-PCS; principal; 2018-03-26)
DX: S31.824A Puncture wound with foreign body of left buttock, initial encounter (principal); W22.09XA Striking against other stationary object, initial encounter; Y93.89 Activity, other specified; Y92.89 Other specified places as the place of occurrence of the external cause; E11.9 Type 2 diabetes mellitus without complications; E03.9 Hypothyroidism, unspecified
CPT/HCPCS: 99283

== ENCOUNTER 2018-06-07 18:35 | Emergency (ER) | payer OTHER, SELFPAY ==
[2018-06-07] MEDS ORDERED: IBUPROFEN 400 MG TAB ONE (19:21)
[2018-06-07] MEDS ORDERED: HYDROCODONE/APAP 7.5/325 MG TAB ONE (19:22)
--- NOTE | 2018-06-07 19:39 | RAD REPORT ---
EXAM DESCRIPTION: RAD - Knee Left 3 View - 06/07/2018 7:29 pm CLINICAL HISTORY: Slip and fall, knee pain COMPARISON: None. FINDINGS: No fracture, dislocation or periosteal reaction.No joint effusion seen. No joint space george rowing. Minimal spurring changes are seen along the articular margins of the patella. No suspicious s oft tissue finding. IMPRESSION: Negative left knee for acute finding. Clinical concerns for internal derangement or occult bony injury could be further assessed with MR im aging.
--- NOTE | 2018-06-07 19:39 | RAD REPORT ---
EXAM DESCRIPTION: RAD - Hip Left 2 View - 06/07/2018 7:30 pm CLINICAL HISTORY: Slip and fall, hip pain COMPARISON: None. FINDINGS: AP and frogleg views of the left hip were obtained. There is no fracture or dislocation. N o acute or destructive bony process seen. No soft tissue abnormality. IMPRESSION: Negative left hip examination for acute or significant findings.
--- NOTE | 2018-06-07 19:58 | EDPHYS ---
Physician Documentation [facility] Name: Venancio Pardo II Age: 42 yrs Sex: Male : 1975 Arrival Date: 06/07/2018 Time: 18:38 Bed 11 Private MD: Jose Juan Marie H ED Physician Estuardo Galvan HPI: 06/07 19:05 This 42 yrs old Male presents to ER via Ambulatory with complaints of Fall cp Injury - LEG PAIN. 19:05 The patient presents with an injury, tenderness. The complaints affect the left knee cp and left hip. Context: resulted from a mis-step, stairs, the patient can partially bear weight, the patient is able to ambulate, with moderate difficulty. Onset: The symptoms/episode began/occurred this morning. 19:05 Associated signs and symptoms: Pertinent negatives calf tenderness, numbness, warmth. cp Historical: - Allergies: 18:46 NKDA; hb - Home Meds: 18:46 Glimepiride Oral [Active]; Hydrochlorothiazide Oral once daily [Active]; levothyroxine hb oral [Active]; Metformin Oral [Active]; phentermine Oral [Active]; Tramadol Oral [Active]; Valium Oral [Active]; Omeprazole Oral [Active]; - PMHx: 18:46 ADD/ADHD; Diabetes - NIDDM; Hernia; Hypothyroidism; prostatitis; hb - PSHx: 18:46 Hernia repair; pre-cancerous ulcers removed; shoulder; hb - Immunization history:: Adult Immunizations up to date. - Social history:: Smoking status: Patient/guardian denies using tobacco. - Ebola Screening: : No symptoms or risks identified at this time. ROS: 19:06 Eyes: Negative for injury, pain, redness, and discharge. cp 19:06 Constitutional: Negative for body aches, chills, fever, poor PO intake. 19:06 ENT: Negative for drainage from ear(s), ear pain, sore throat, difficulty swallowing, difficulty handling secretions. 19:06 Cardiovascular: Negative for chest pain, edema, palpitations. 19:06 Respiratory: Negative for cough, shortness of breath, wheezing. 19:06 Abdomen/GI: Negative for abdominal pain, nausea, vomiting, and diarrhea, black/tarry stool, rectal bleeding. 19:06 Back: Negative for pain at rest, pain with movement. 19:06 MS/extremity: Positive for pain, tenderness, of the left hip and left knee, Negative for deformity, paresthesias. 19:06 Neuro: Negative for altered mental status, headache, weakness. 19:06 All other systems are negative. Exam: 19:10 Constitutional: The patient appears in no acute distress, alert, awake, non-toxic, well cp developed, well nourished. 19:10 Head/Face: Normocephalic, atraumatic. cp 19:10 Eyes: Periorbital structures: appear normal, Conjunctiva: normal, no exudate, no injection, Sclera: no appreciated abnormality, Lids and lashes: appear normal, bilaterally. 19:10 ENT: External ear(s): are unremarkable, Nose: is normal, Mouth: Lips: moist, Oral mucosa: pink and intact, moist, Posterior pharynx: is normal, airway is patent, no erythema, no exudate. 19:10 Neck: ROM/movement: is normal, is supple, without pain, no range of motions limitations, no nuchal rigidity. 19:10 Chest/axilla: Inspection: normal, Palpation: is normal, no crepitus, no tenderness. Vital Signs: 18:45 BP 138 / 98; Pulse 88; Resp 16; Temp 97.9; Pulse Ox 100% on R/A; Pain 10/10; hb Trauma Score (Adult): 18:45 Eye Response: spontaneous(1); Verbal Response: oriented(1); Motor Response: obeys hb commands(2); Systolic BP: > 89 mm Hg(4); Respiratory Rate: 10 to 29 per min(4); Oscar Score: 15; Trauma Score: 12 Procedures: 20:10 Splinting: Splint applied to left knee using knee immobilizer, applied by nurse. cp Examined by me, post splint application: neurovascular intact, Patient tolerated well. 20:10 Crutch training provided to patient and/or family. Return demonstration given. cp MDM: 18:48 Patient medically screened. cp 19:00 Differential diagnosis: dislocation, closed fracture, contusion, ligament injury. cp 19:55 Data reviewed: vital signs, nurses notes, radiologic studies, plain films. cp 19:55 Test interpretation: by ED physician or midlevel provider: plain radiologic studies. cp Counseling: I had a detailed discussion with the patient and/or guardian regarding: the historical points, exam findings, and any diagnostic results supporting the discharge/admit diagnosis, radiology results, the need for outpatient follow up, a orthopedic surgeon, to return to the emergency department if symptoms worsen or persist or if there are any questions or concerns that arise at home. Response to treatment: the patient's symptoms have markedly improved after treatment, VSS. Pain improved. Patient placed in knee immobilizer and crutches given. Will discharge to home for continued monitoring, and as a result, I will discharge patient. 06/07 18:59 Order name: XRAY Hip LEFT 2 view; Complete Time: 20:01 cp 06/07 20:01 Interpretation: Report reviewed. cp 06/07 18:59 Order name: XRAY Knee LEFT 3 view; Complete Time: 20:01 cp 06/07 20:01 Interpretation: Report reviewed. cp 06/07 19:54 Order name: Crutches; Complete Time: 20:09 cp 06/07 19:54 Order name: Knee Immobilizer; Complete Time: 20:09 cp Administered Medications: 19:34 Drug: Ibuprofen 800 mg Route: PO; aj 20:09 Follow up: Response: No adverse reaction; Pain is decreased aj 19:57 Not Given (Patient unable to find a ride): Hydrocodone-Acetaminophen (7.5 mg-325 mg) 1 aj tabs PO once Disposition: 06/07/18 19:57 Discharged to Home. Impression: Pain in left hip, Pain in left knee. - Condition is Stable. - Discharge Instructions: Knee Pain, Hip Pain. - Prescriptions for Anaprox DS 550 mg Oral Tablet - take 1 tablet by ORAL route every 12 hours As needed; 20 tablet. Tramadol 50 mg Oral Tablet - take 1 tablet by ORAL route every 8 hours as needed; 20 tablet. - Medication Reconciliation Form, Thank You Letter, Antibiotic Education, Prescription Opioid Use form. - Follow up: Wilmar Sterling MD; When: 2 - 3 days; Reason: Recheck today's complaints. - Problem is new. - Symptoms have improved. Addendum: 06/11/2018 17:23 Co-signature as Attending Physician, Estuardo Galvan MD. g s Signatures: Dispatcher [employer] Chica Michaels RN RN Adam Pardo PA PA cp Baxter, Heather RN RN Estuardo Joel MD MD gs Corrections: (The following items were deleted from the chart) 06/07 20:11 19:57 06/07/2018 19:57 Discharged to Home. Impression: Pain in left hip; Pain in left aj knee. Condition is Stable. Forms are Medication Reconciliation Form, Thank You Letter, Antibiotic Education, Prescription Opioid Use. Follow up: Wilmar Sterling; When: 2 - 3 days; Reason: Recheck today's complaints. Problem is new. Symptoms have improved. cp
--- NOTE | 2018-06-07 19:58 | ER ---
Nurse's Notes [facility] Name: Venancio Pardo II Age: 42 yrs Sex: Male : 1975 Arrival Date: 06/07/2018 Time: 18:38 Bed 11 Private MD: Jose Juan Marie H Diagnosis: Pain in left hip;Pain in left knee Presentation: 06/07 18:43 Presenting complaint: Patient states: Slipped going down step this morning, landed on knees and elbows, now c/o left knee pain 06/22. Care prior to arrival: None. Mechanism of Injury: Fall down 1 steps. 18:43 Acuity: MAURISIO 4 hb 18:43 Method Of Arrival: Ambulatory 18:54 Trauma event details: Injury occurred in the [facility], Injury occurred: in a public building. Injury occurred: June 07, 2018. Trauma Activation: Not Applicable Physician: ED Physician; Name: ; Notified At: ; Arrived At: Physician: General Surgeon; Name: ; Notified At: ; Arrived At: Physician: Radiology; Name: ; Notified At: ; Arrived At: Physician: Respiratory; Name: ; Notified At: ; Arrived At: Physician: Lab; Name: ; Notified At: ; Arrived At: Historical: - Allergies: 18:46 NKDA; hb - Home Meds: 18:46 Glimepiride Oral [Active]; Hydrochlorothiazide Oral once daily [Active]; levothyroxine hb oral [Active]; Metformin Oral [Active]; phentermine Oral [Active]; Tramadol Oral [Active]; Valium Oral [Active]; Omeprazole Oral [Active]; - PMHx: 18:46 ADD/ADHD; Diabetes - NIDDM; Hernia; Hypothyroidism; prostatitis; hb - PSHx: 18:46 Hernia repair; pre-cancerous ulcers removed; shoulder; hb - Immunization history:: Adult Immunizations up to date. - Social history:: Smoking status: Patient/guardian denies using tobacco. - Ebola Screening: : No symptoms or risks identified at this time. Screenin:55 Abuse screen: Denies threats or abuse. Denies injuries from another. Nutritional aj screening: No deficits noted. Tuberculosis screening: No symptoms or risk factors identified. Fall Risk None identified. Primary Survey: 18:45 A: Airway: patent. Breathing/Chest: Respiratory pattern: regular, Respiratory effort: hb spontaneous, unlabored, Chest inspection: symmetrical rise and fall of the chest. Circulation: Skin color: pink, Skin temperature: warm, dry. Disability Alert. Assessment: 18:55 General: Appears in no apparent distress. comfortable, Behavior is calm, cooperative, aj appropriate for age. Pain: Complains of pain in lateral aspect of left knee, posterior aspect of left knee and left knee. Neuro: Level of Consciousness is awake, alert, obeys commands, Oriented to person, place, time, situation, Appropriate for age. Respiratory: Airway is patent Respiratory effort is even, unlabored, Respiratory pattern is regular, symmetrical. Derm: Skin is intact, is healthy with good turgor, Skin is pink, warm \T\ dry. normal. Musculoskeletal: Circulation, motion, and sensation intact. Reports pain in lateral aspect of left knee, posterior aspect of left knee and left knee. 19:34 Reassessment: Patient is calling for a ride home before administration of Currie. aj Vital Signs: 18:45 BP 138 / 98; Pulse 88; Resp 16; Temp 97.9; Pulse Ox 100% on R/A; Pain 10/10; hb Trauma Score (Adult): 18:45 Eye Response: spontaneous(1); Verbal Response: oriented(1); Motor Response: obeys hb commands(2); Systolic BP: > 89 mm Hg(4); Respiratory Rate: 10 to 29 per min(4); [place] Score: 15; Trauma Score: 12 ED Course: 18:38 Patient arrived in ED. sb2 18:38 Jose Juan Marie DO is Private Physician. sb2 18:44 Triage completed. hb 18:46 Arm band placed on right wrist. hb 18:48 Chica Lucero, RN is Primary Nurse. aj 18:48 Adam Medley PA is PHCP. cp 18:48 Estuardo Galvan MD is Attending Physician. cp 18:55 Patient has correct armband on for positive identification. aj 19:26 X-ray completed. Patient tolerated procedure well. bb2 19:27 XRAY Hip LEFT 2 view In Process Unspecified. EDMS 19:29 XRAY Knee LEFT 3 view In Process Unspecified. EDMS 19:55 Wilmar Sterling MD is Referral Physician. cp 20:10 No provider procedures requiring assistance completed. Patient did not have IV access aj during this emergency room visit. Crutch training done. Knee immobilizer applied on left knee. Administered Medications: 19:34 Drug: Ibuprofen 800 mg Route: PO; aj 20:09 Follow up: Response: No adverse reaction; Pain is decreased aj 19:57 Not Given (Patient unable to find a ride): Hydrocodone-Acetaminophen (7.5 mg-325 mg) 1 aj tabs PO once Outcome: 19:57 Discharge ordered by MD. cp 20:10 Discharged to home ambulatory, with crutches. aj 20:10 Condition: good 20:10 Discharge instructions given to patient, Instructed on discharge instructions, follow up and referral plans. medication usage, Demonstrated understanding of instructions, follow-up care, medications, Prescriptions given X 2. 20:11 Patient left the ED. aj Signatures: Dispatcher [employer] EDMS Chica Lucero RN RN Adam Pardo PA PA cp Baxter, Heather, RN RN Siobhan Villasenor bb2 Micaela John sb2 Corrections: (The following items were deleted from the chart) 18:45 18:45 A: Patient intubated prior to arrival hb hb
[2018-06-07 20:23] VITALS: BP 138/98; TEMP 97.9; O2SAT 100
== END 2018-06-07 20:11 | disposition home or self-care (01) ==
LOC: ER 18:35
DX: M25.562 Pain in left knee (principal); E11.9 Type 2 diabetes mellitus without complications; E03.9 Hypothyroidism, unspecified; F90.9 Attention-deficit hyperactivity disorder, unspecified type
CPT/HCPCS: 99284

== ENCOUNTER 2018-06-20 08:05 | Day surgery (SDC) | payer OTHER, SELFPAY ==
[2018-06-15 11:54] LABS: Absolute Lymphocytes (CBC) 1.9 K/uL (0.7-4.9); Absolute Monocytes 0.5 K/uL (0.1-1.3); Absolute Neutrophil 4.1 K/uL (1.8-8.0); Basophils % 0.8 % (0-1.3); Eosinophils % 3.4 % (0-4.4); Hematocrit 53.6 % (39.6-49.0); MCH 31.1 pg (27.0-35.0); MCV 92.3 fL (80-100); MPV 9.7 fL (7.6-11.3); Monocytes % 7.5 % (3.3-12.3); RBC Red Blood Cell Count 5.81 M/uL (4.33-5.43)
[2018-06-15 12:06] LABS: Potassium 3.8 mmol/L (3.5-5.1)
[2018-06-20] MEDS ORDERED: ROCURONIUM 50 MG/5 ML VIAL IV ONE (08:33)
[2018-06-20] MEDS ORDERED: LIDOCAINE 2% MPF 5 ML VIAL ONE (08:33)
[2018-06-20] MEDS ORDERED: FENTANYL CITR 100 MCG/2 ML ONE (08:33)
[2018-06-20] MEDS ORDERED: MIDAZOLAM HCL 2 MG/2 ML INJ ONE (08:33)
[2018-06-20] MEDS ORDERED: PROPOFOL 200 MG/20 ML VIAL IV ONE (08:33)
[2018-06-20] MEDS ORDERED: NA CHLORIDE 0.9% 1,000 ML ONE (08:40)
[2018-06-20] MEDS ORDERED: CEFAZOLIN/SWI 1gm 1 GM/10 ML SYR ONE (08:40)
[2018-06-20] MEDS ORDERED: Ringers Lactate 1,000 ML IV ONE (10:08)
[2018-06-20] MEDS ORDERED: KETOROLAC 30 MG/ML INJ ONE (10:20)
[2018-06-20] MEDS: MEPERIDINE HCL 50 MG/ML AMP ONE ×3 (10:53→11:10)
--- NOTE | 2018-06-20 10:55 | P.BOP ---
Preoperative diagnosis: incarcerated recurrent ventral hernia Postoperative diagnosis: same Primary procedure: Open repair of incarcerated recurrent ventral hernia with mesh Unattended Ground Sensor Specialist: ANTONIA COFFEY ([employer]) Estimated blood loss: <10cc Specimen: hernia sac Findings: as above Anesthesia: General Complications: None Implants: medium ventralex mesh Transferred to: Recovery Room Condition: Good
[2018-06-20] MEDS ORDERED: ONDANSETRON 4 MG/2 ML VIAL ONE (10:58)
[2018-06-20] MEDS ORDERED: HYDROCODONE/APAP 5/325 MG TAB ONE (11:55)
[2018-06-20 12:04] VITALS: TEMP 98
[2018-06-20 13:41] VITALS: BP 110/67; O2SAT 95
--- NOTE | 2018-06-20 22:46 | DS ---
Date of Discharge: 06/20/2018 Diagnosis: Incarcerated recurrent ventral hernia. Procedure: Open repair of incarcerated recurrent ventral hernia with mesh. Disposition: Home. Activity: As tolerated. No heavy lifting. Followup: Follow up in my office in 1 week. Call for appointment on [phone]. Keep the area dry fo r 48 hours, then may shower. Medications: See orders. ANIVAL/PRIYANKA Voice ID: [id number] Report ID: [id number]
--- NOTE | 2018-06-20 22:46 | OP ---
Date of Procedure: 06/20/2018 Surgeon: Brett Ruth MD Community Education Specialist: Vicki Villalta. Preoperative Diagnosis: Incarcerated recurrent ventral hernia. Postoperative Diagnosis: Incarcerated recurrent ventral hernia. Procedure: Open repair of an incarcerated recurrent ventral hernia with mesh. Estimated Blood Loss: Less than 10 cc. Specimen: Hernia sac. Findings: As above. Anesthesia: General. Implant: Mesh is a medium Ventralex mesh. Indications: This is a case of a 42-year-old patient, comes to us with recurrent incarcerated ventra l hernia with pain. The patient was advised in the past of against any heavy lifting or gaining weig ht. He has still developed his hernia once again. The benefits, alternatives, and risks of repair w ere fully explained to the patient, which include but are not limited to infection, bleeding, damage to adjacent structures, anesthesia complication, recurrence, AK, and even . He also understands this may not relieve any symptoms, he might need more than one surgical intervention. It was explai seema to him the details about mesh placement, pros and cons of it. After discussing this and allowed to ask questions and answered to his satisfaction, he gave us authorization to use mesh. The patient understands the importance of no heavy lifting and also losing some weight to diminish the chance of recurrence. The patient signed a consent. Description Of Procedure: The patient was brought to the operating room and placed in supine positio n. Anesthesia was done without complication. Abdominal area was prepped and draped in usual sterile fashion. Marcaine 0.5% was injected for local anesthetic, followed by sharp incision of the skin in the previous incision in the ventral region. The incision was carried down to fascia. Through the scar tissue, we noticed the patient to have a recurrent ventral hernia. The hernia sac was opened. The content was found to be omentum, that was carefully reduced in the abdominal cavity after fully i nspected and after some adhesions were removed. Once again, we made sure there was no bleeding. The fascia edges were cleaned. To reinforce the area, since the fascia edges were weak, we have to put a mesh to anchor that mesh away from the weak area in the midline. We used the Ventralex mesh, mediu m size, intraperitoneally with the strap coming through the incision. We proceeded to place the mesh to the point that it anchored that mesh to the fascia under direct visualization in multiple places. The area was irrigated. The midline was approximated with #1 Prolene in a [id number] fashion multiple times. The area was irrigated. The subcutaneous tissue was closed with 3-0 chromic and ski n was approximated with beverly. Sponge count and instrument counts were correct. The patient geeta ated the procedure well. The patient was sent to recovery in stable condition. JOSE MANUEL Voice ID: [id number] Report ID: [id number]
== END 2018-06-20 13:35 | disposition home or self-care (01) ==
LOC: OR 08:05
PROVIDERS: ATTEND Surgery
PROC: 0WUF0JZ Supplement Abdominal Wall with Synthetic Substitute, Open Approach (ICD-10-PCS; principal; 2018-06-20 09:30)
DX: K43.0 Incisional hernia with obstruction, without gangrene (principal); G47.33 Obstructive sleep apnea (adult) (pediatric); E11.9 Type 2 diabetes mellitus without complications; E07.9 Disorder of thyroid, unspecified
CPT/HCPCS: 36415; 80048; 82962; 85025; 88302; J0690; J2175; J2250; J2405; J3010; J7030

== ENCOUNTER 2019-01-23 09:08 | Emergency (ER) | payer OTHER, SELFPAY ==
--- OUTSIDE RECORDS SUMMARY | 2019-01-23 09:12 | XMS REPORT ---
:1975 [facility] Address [address] [place] [address] [address] [place] [address] Care Team Providers Name Role Phone Unavailable Unavailable Unavailable Problems This patient has no known problems. Allergies, Adverse Reactions, Alerts This patient has no known allergies or adverse reactions. Medications This patient has no known medications.
--- NOTE | 2019-01-23 10:04 | RAD REPORT ---
EXAM DESCRIPTION: RAD - Elbow Right 3 View - 01/23/2019 9:44 am CLINICAL HISTORY: Right elbow pain and numbness FINDINGS: No fracture or dislocation is seen. Spur extends off of the olecranon. No additional bone or joint abnormality is seen
--- NOTE | 2019-01-23 10:08 | EDPHYS ---
Physician Documentation [facility] Name: Venancio Pardo II Age: 43 yrs Sex: Male : 1975 Arrival Date: 01/23/2019 Time: 09:11 Bed 15 Private MD: Jose Juan Marie H ED Physician Lowell Yip HPI: 01/23 09:16 This 43 yrs old Male presents to ER via Unassigned with complaints of Numbness rn Of Arm. 09:16 The patient or guardian complains of injury, pain. The complaints affect the right rn elbow. Onset: The symptoms/episode began/occurred 2 day(s) ago. Modifying factors: The symptoms are alleviated by nothing. the symptoms are aggravated by bending arm. Severity of symptoms: At their worst the symptoms were moderate, in the emergency department the symptoms are unchanged. The patient has not experienced similar symptoms in the past. Reports fell onto right elbow on Wednesday, felt immediate pain, and has been having swelling at elbow along with tingling down right arm involving 3rd/4th/5th fingers, reports high pain tolerance and feels like might be broken. No other injuries. Is right handed.. Historical: - Allergies: 09:20 NKDA; ph - PMHx: 09:20 ADD/ADHD; Diabetes - NIDDM; Hernia; ph 09:29 Hypothyroidism; prostatitis; ph - PSHx: 09:29 Hernia repair; pre-cancerous ulcers removed; shoulder; ph - Immunization history:: Adult Immunizations unknown. - Social history:: Smoking status: Patient/guardian denies using tobacco. - Family history:: not pertinent. - Ebola Screening: : No symptoms or risks identified at this time. - Hospitalizations: : No recent hospitalization is reported. ROS: 09:16 Constitutional: Negative for fever, chills, and weight loss, Neck: Negative for injury, rn pain, and swelling, Back: Negative for injury and pain, MS/Extremity: + right elbow injury and pain Skin: Negative for injury, rash, and discoloration, Neuro: + tingling right arm distal to elbow/injury Exam: 09:16 Constitutional: This is a well developed, well nourished patient who is awake, alert, rn and in no acute distress. Neck: Supple, full range of motion MS/ Extremity: Pulses equal, no cyanosis. Neurovascular intact. Mild painful ROM but very animated with affected arm, mild tenderness to ulnar head/groove, no gross deformity. Vital Signs: 09:15 Weight 99.79 kg; Height 5 ft. 10 in. (177.80 cm); Pain 10/10; ss 09:17 BP 124 / 81; Pulse 91; Resp 16; Pulse Ox 97% on R/A; ph 10:32 BP 124 / 78; Pulse 86; Resp 18; Temp 97.9; Pulse Ox 99% on R/A; ph 09:15 Body Mass Index 31.57 (99.79 kg, 177.80 cm) ss MDM: 09:12 Patient medically screened. rn 10:06 Differential diagnosis: closed fracture, contusion. Differential diagnosis: rn neuropraxia, contusion. Data reviewed: vital signs, nurses notes. Test interpretation: by ED physician or midlevel provider: plain radiologic studies, Xray right elbow without acute fracture/dislocation. Counseling: I had a detailed discussion with the patient and/or guardian regarding: the historical points, exam findings, and any diagnostic results supporting the discharge/admit diagnosis, radiology results, the need for outpatient follow up, to return to the emergency department if symptoms worsen or persist or if there are any questions or concerns that arise at home. Special discussion: I discussed with the patient/guardian in detail that at this point there is no indication for admission to the hospital. It is understood, however, that if the symptoms persist or worsen the patient needs to return immediately for re-evaluation. 01/23 09:16 Order name: XRAY Elbow RIGHT 3 view; Complete Time: 10:06 rn Administered Medications: No medications were administered Disposition: 01/23/19 10:07 Discharged to Home. Impression: Contusion of right elbow, Mononeuropathy, unspecified. - Condition is Stable. - Discharge Instructions: Neuropathic Pain, Elbow Contusion, Peripheral Neuropathy. - Prescriptions for Medrol (Chris) 4 mg Oral Tablets, Dose Pack - take 1 tablet by ORAL route as directed - follow package instructions; 1 packet. - Medication Reconciliation Form, Thank You Letter, Antibiotic Education, Prescription Opioid Use form. - Follow up: Jorge Murillo MD; When: As needed; Reason: Recheck today's complaints, Re-evaluation by your physician. - Problem is new. - Symptoms have improved. Signatures: Dispatcher [employer] EDMS Lowell Yip MD MD rn Smirch, Shelby, RN RN Lynda Costa RN RN ph Corrections: (The following items were deleted from the chart) 10:31 10:07 Sling ordered. rn ph 10:33 10:07 01/23/2019 10:07 Discharged to Home. Impression: Contusion of right elbow; ph Mononeuropathy, unspecified. Condition is Stable. Forms are Medication Reconciliation Form, Thank You Letter, Antibiotic Education, Prescription Opioid Use. Follow up: Dr. Jorge Murillo; When: As needed; Reason: Recheck today's complaints, Re-evaluation by your physician. Problem is new. Symptoms have improved. rn
--- NOTE | 2019-01-23 10:08 | ER ---
Nurse's Notes [facility] Name: Venancio Pardo II Age: 43 yrs Sex: Male : 1975 Arrival Date: 01/23/2019 Time: 09:11 Bed 15 Private MD: Jose Juan Marie H Diagnosis: Contusion of right elbow;Mononeuropathy, unspecified Presentation: 01/23 09:15 Presenting complaint: Patient states: pain to R elbow that radiates down to hand that ss began 2 days ago after slipping and hitting elbow onto wooden handrail. Transition of care: patient was not received from another setting of care. Onset of symptoms was January 21, 2019. Risk Assessment: Do you want to hurt yourself or someone else? Patient reports no desire to harm self or others. Initial Sepsis Screen: Does the patient meet any 2 criteria? No. Patient's initial sepsis screen is negative. Does the patient have a suspected source of infection? No. Patient's initial sepsis screen is negative. Care prior to arrival: None. 09:15 Method Of Arrival: Ambulatory ss 09:15 Acuity: MAURISIO 4 ss Historical: - Allergies: 09:20 NKDA; ph - PMHx: 09:20 ADD/ADHD; Diabetes - NIDDM; Hernia; ph 09:29 Hypothyroidism; prostatitis; ph - PSHx: 09:29 Hernia repair; pre-cancerous ulcers removed; shoulder; ph - Immunization history:: Adult Immunizations unknown. - Social history:: Smoking status: Patient/guardian denies using tobacco. - Family history:: not pertinent. - Ebola Screening: : No symptoms or risks identified at this time. - Hospitalizations: : No recent hospitalization is reported. Screenin:18 Abuse screen: Denies threats or abuse. Denies injuries from another. Nutritional ph screening: No deficits noted. Tuberculosis screening: No symptoms or risk factors identified. Fall Risk Fall in past 12 months (25 points). No secondary diagnosis (0 pts). No IV (0 pts). Ambulatory Aid- None/Bed Rest/Nurse Assist (0 pts). Gait- Normal/Bed Rest/Wheelchair (0 pts) Mental Status- Oriented to own ability (0 pts). Total Hyde Fall Scale indicates Low Risk Score (25-44 pts). Fall prevention measures have been instituted. As available Patient and Family Educated on Fall Prevention Program and strategies. Assessment: 09:26 General: Appears in no apparent distress. comfortable, well groomed, Behavior is calm, ph cooperative, appropriate for age. Pain: Complains of pain in right elbow Pain radiates to right wrist, right hand and palmar aspect of right forearm. Neuro: Level of Consciousness is awake, alert, obeys commands, Oriented to person, place, time, situation, Reports numbness in right wrist, right hand and palmar aspect of right forearm. Cardiovascular: Capillary refill is > 3 seconds in bilateral fingers Patient's skin is warm and dry. Respiratory: Airway is patent Respiratory effort is even, unlabored, Respiratory pattern is regular, symmetrical. Derm: Skin is intact, is healthy with good turgor, Skin is pink, warm \\T\\ dry. Musculoskeletal: Circulation, motion, and sensation intact. Range of motion: intact in all extremities, Swelling absent. 10:31 Reassessment: Patient appears in no apparent distress at this time. Patient and/or ph family updated on plan of care and expected duration. Pain level reassessed. Patient is alert, oriented x 3, equal unlabored respirations, skin warm/dry/pink. Pt refused sling, states, " I don't need it. I'm just going to ice it and take meds.": Pt d/c home w/ script for steroids. Vital Signs: 09:15 Weight 99.79 kg; Height 5 ft. 10 in. (177.80 cm); Pain 10/10; ss 09:17 BP 124 / 81; Pulse 91; Resp 16; Pulse Ox 97% on R/A; ph 10:32 BP 124 / 78; Pulse 86; Resp 18; Temp 97.9; Pulse Ox 99% on R/A; ph 09:15 Body Mass Index 31.57 (99.79 kg, 177.80 cm) ss ED Course: 09:11 Patient arrived in ED. mr 09:11 Jose Juan Marie DO is Private Physician. mr 09:12 Lowell Yip MD is Attending Physician. rn 09:13 Lynda Costa, NADEEM is Primary Nurse. ph 09:18 Arm band placed on Patient placed in an exam room, on a stretcher. ph 09:20 Patient has correct armband on for positive identification. Bed in low position. Call ph light in reach. Side rails up X 1. Door closed. Noise minimized. Warm blanket given. 09:21 Triage completed. 09:43 X-ray completed. Portable x-ray completed in exam room. Patient tolerated procedure sw well. 09:45 XRAY Elbow RIGHT 3 view In Process Unspecified. EDMS 10:06 Jorge Murillo MD is Referral Physician. rn 10:32 No provider procedures requiring assistance completed. Patient did not have IV access ph during this emergency room visit. Administered Medications: No medications were administered Outcome: 10:07 Discharge ordered by MD. rn 10:32 Discharged to home ambulatory. ph 10:32 Condition: good 10:32 Discharge instructions given to patient, Instructed on discharge instructions, follow up and referral plans. medication usage, Demonstrated understanding of instructions, follow-up care, medications, Prescriptions given X 1. 10:33 Patient left the ED. ph Signatures: Dispatcher [employer] EDWI Suellen Miranda Roman, MD MD rn Smirch, Shelby, RN RN Lynda Echevarria RN RN Nithya Fuentes
[2019-01-23 10:48] VITALS: BP 124/78; TEMP 97.9; O2SAT 99
== END 2019-01-23 10:33 | disposition home or self-care (01) ==
LOC: ER 09:08
DX: S50.01XA Contusion of right elbow, initial encounter (principal); W19.XXXA Unspecified fall, initial encounter; G58.9 Mononeuropathy, unspecified; F90.9 Attention-deficit hyperactivity disorder, unspecified type; E11.9 Type 2 diabetes mellitus without complications; E03.9 Hypothyroidism, unspecified
CPT/HCPCS: 99283

== ENCOUNTER 2019-04-02 14:19 | Emergency (ER) | payer SELFPAY ==
[2019-04-02] MEDS ORDERED: KETOROLAC 30 MG/ML INJ ONE (14:59)
[2019-04-02 15:02] LABS: Basophils % 0.4 % (0-1.3); Eosinophils % 1.7 % (0-4.4); Hematocrit 45.5 % (39.6-49.0); Lymphocytes % 26.6 % (15.3-44.8); MPV 9.3 fL (7.6-11.3); Monocytes % 7.6 % (3.3-12.3); RBC Red Blood Cell Count 5.01 M/uL (4.33-5.43)
[2019-04-02 15:12] LABS: BUN Blood Urea Nitrogen 14 mg/dL (7-18); Bicarbonate 30 mmol/L (21-32); Glucose Level 100 mg/dL (74-106); Lipase 95 U/L (73-393); Potassium 3.8 mmol/L (3.5-5.1); Sodium Level 143 mmol/L (136-145)
--- NOTE | 2019-04-02 15:15 | RAD REPORT ---
EXAM DESCRIPTION: CT - Stone Protocol - 04/02/2019 3:02 pm CLINICAL HISTORY: Flank pain. ABD PAIN COMPARISON: <Comparisons> TECHNIQUE: Axial images were obtained without oral or IV contrast. Lack of contrast limits solid org an and vascular assessment. The [id number] spans the entirety of the system partially obscuring uppermost abdomen and lung bases. Coronal reformatted images were obtained and reviewed. All CT scans are performed using dose optimization technique as appropriate and may include automated exposure control or mA/KV adjustment according to patient size. FINDINGS: The lower lung martinez are clear. Imaged portions of the liver and spleen show no suspicious findings on non-contrast imaging. The panc reas and adrenal glands are normal. No pathologic lymphadenopathy in the abdomen or pelvis. Tiny punctate calculi in both kidneys without hydronephrosis No bowel obstruction, free air, free fluid or abscess. Normal appendix noted.Mild sigmoid diverticulo sis without diverticulitis. Mild lower lumbar spondylosis. IMPRESSION: Punctate bilateral nephrolithiasis without hydronephrosis seen.
--- NOTE | 2019-04-02 15:35 | EDPHYS ---
Physician Documentation [facility] Name: Venancio Pardo II Age: 43 yrs Sex: Male : 1975 Arrival Date: 04/02/2019 Time: 14:23 Bed 19 Private MD: Jose Juan Marie H ED Physician Estuardo Galvan HPI: 04/02 15:27 This 43 yrs old Male presents to ER via Ambulatory with complaints of gs Abdominal Pain. 15:27 The patient presents with abdominal pain in the left lower quadrant. Onset: The gs symptoms/episode began/occurred yesterday. The symptoms do not radiate. Associated signs and symptoms: Pertinent negatives: nausea, vomiting, and diarrhea, blood in stools, fever, shortness of breath, testicular pain. The symptoms are described as sharp. Modifying factors: the symptoms are aggravated by touching the area. Severity of pain: At its worst the pain was moderate in the emergency department the pain has improved mildly. The patient has experienced similar episodes in the past, a few times. THINKS SOMETHING WRONG WITH MESH. Historical: - Allergies: 14:38 NKDA; em - PMHx: 14:38 ADD/ADHD; Diabetes - NIDDM; Hernia; Hypothyroidism; prostatitis; Diverticulitis; fatty em liver; - PSHx: 14:38 Hernia repair; em - Immunization history:: Adult Immunizations up to date. - Social history:: Smoking status: Patient/guardian denies using tobacco. - Ebola Screening: : Patient negative for fever greater than or equal to 101.5 degrees Fahrenheit, and additional compatible Ebola Virus Disease symptoms Patient denies exposure to infectious person Patient denies travel to an Ebola-affected area in the 21 days before illness onset No symptoms or risks identified at this time. ROS: 15:27 All other systems are negative. gs Exam: 15:27 Head/Face: Normocephalic, atraumatic. Eyes: Pupils equal round and reactive to light, gs extra-ocular motions intact. Lids and lashes normal. Conjunctiva and sclera are non-icteric and not injected. Cornea within normal limits. Periorbital areas with no swelling, redness, or edema. ENT: Nares patent. No nasal discharge, no septal abnormalities noted. Tympanic membranes are normal and external auditory canals are clear. Oropharynx with no redness, swelling, or masses, exudates, or evidence of obstruction, uvula midline. Mucous membranes moist. Neck: Trachea midline, no thyromegaly or masses palpated, and no cervical lymphadenopathy. Supple, full range of motion without nuchal rigidity, or vertebral point tenderness. No Meningismus. Chest/axilla: Normal chest wall appearance and motion. Nontender with no deformity. No lesions are appreciated. Cardiovascular: Regular rate and rhythm with a normal S1 and S2. No gallops, murmurs, or rubs. Normal PMI, no JVD. No pulse deficits. Respiratory: Lungs have equal breath sounds bilaterally, clear to auscultation and percussion. No rales, rhonchi or wheezes noted. No increased work of breathing, no retractions or nasal flaring. Back: No spinal tenderness. No costovertebral tenderness. Full range of motion. Skin: Warm, dry with normal turgor. Normal color with no rashes, no lesions, and no evidence of cellulitis. MS/ Extremity: Pulses equal, no cyanosis. Neurovascular intact. Full, normal range of motion. Neuro: Awake and alert, GCS 15, oriented to person, place, time, and situation. Cranial nerves II-XII grossly intact. Motor strength 5/5 in all extremities. Sensory grossly intact. Cerebellar exam normal. Normal gait. 15:27 Male : Normal genitalia with no discharge or lesions. 15:27 Constitutional: The patient appears alert, awake. 15:27 Abdomen/GI: Inspection: distension, is not seen, Palpation: moderate abdominal tenderness, in the left lower quadrant, rebound tenderness, is not appreciated, Hernia: not appreciated. Vital Signs: 14:38 BP 139 / 90; Pulse 91; Resp 18; Temp 98.6(O); Pulse Ox 100% on R/A; Weight 102.06 kg; em Height 5 ft. 10 in. (177.80 cm); Pain 8/10; 15:50 BP 136 / 93; Pulse 82; Resp 18; Pulse Ox 98% on R/A; Pain 8/10; em 14:38 Body Mass Index 32.28 (102.06 kg, 177.80 cm) em MDM: 14:36 Patient medically screened. 15:27 Differential diagnosis: diverticulitis, non-specific abd pain, pancreatitis, gs NEUROPATHIC PAIN. Data reviewed: vital signs, nurses notes, lab test result(s), radiologic studies. Counseling: I had a detailed discussion with the patient and/or guardian regarding: the historical points, exam findings, and any diagnostic results supporting the discharge/admit diagnosis, lab results, radiology results, the need for outpatient follow up. 04/02 14:41 Order name: CBC with Diff; Complete Time: 15:15 04/02 14:41 Order name: Basic Metabolic Panel; Complete Time: 15:15 04/02 14:41 Order name: Lipase; Complete Time: 15:15 04/02 14:41 Order name: CT Stone Protocol; Complete Time: 15:25 Administered Medications: 14:53 Drug: TORadol - Ketorolac 15 mg Route: IVP; Site: right antecubital; 15:52 Follow up: Response: No adverse reaction; Pain is unchanged, physician notified em Disposition: 04/02/19 15:33 Discharged to Home. Impression: Lower abdominal pain, unspecified. - Condition is Stable. - Discharge Instructions: Abdominal Pain, Adult. - Medication Reconciliation Form, Thank You Letter, Antibiotic Education, Prescription Opioid Use form. - Follow up: Brett Ruth MD; When: 2 - 3 days; Reason: Re-evaluation by your physician. Signatures: Dispatcher [employer] Donny Muller LVN LVN em Baxter, Heather, NADEEM RN Estuardo Galvan MD MD Corrections: (The following items were deleted from the chart) 15:54 15:33 04/02/2019 15:33 Discharged to Home. Impression: Lower abdominal pain, em unspecified. Condition is Stable. Forms are Medication Reconciliation Form, Thank You Letter, Antibiotic Education, Prescription Opioid Use. Follow up: Brett Ruth; When: 2 - 3 days; Reason: Re-evaluation by your physician.
--- NOTE | 2019-04-02 15:35 | ER ---
Nurse's Notes [facility] Name: Venancio Pardo II Age: 43 yrs Sex: Male : 1975 Arrival Date: 04/02/2019 Time: 14:23 Bed 19 Private MD: Jose Juan Marie H Diagnosis: Lower abdominal pain, unspecified Presentation: 04/02 14:33 Presenting complaint: Patient states: feels a burning/tearing/shearing pain on the left em side of abd that goes in a straight line that started 3 days ago, "feels like mesh is tearing" reports nausea, denies fever V/D, hx of hernia repair x 2. Transition of care: patient was not received from another setting of care. Onset of symptoms was March 30, 2019. Risk Assessment: Do you want to hurt yourself or someone else? Patient reports no desire to harm self or others. Initial Sepsis Screen: Does the patient meet any 2 criteria? No. Patient's initial sepsis screen is negative. Does the patient have a suspected source of infection? No. Patient's initial sepsis screen is negative. Care prior to arrival: None. 14:33 Method Of Arrival: Ambulatory em 14:39 Acuity: MAURISIO 3 hb Historical: - Allergies: 14:38 NKDA; em - PMHx: 14:38 ADD/ADHD; Diabetes - NIDDM; Hernia; Hypothyroidism; prostatitis; Diverticulitis; fatty em liver; - PSHx: 14:38 Hernia repair; em - Immunization history:: Adult Immunizations up to date. - Social history:: Smoking status: Patient/guardian denies using tobacco. - Ebola Screening: : Patient negative for fever greater than or equal to 101.5 degrees Fahrenheit, and additional compatible Ebola Virus Disease symptoms Patient denies exposure to infectious person Patient denies travel to an Ebola-affected area in the 21 days before illness onset No symptoms or risks identified at this time. Screenin:39 Abuse screen: Denies threats or abuse. Nutritional screening: No deficits noted. em Tuberculosis screening: No symptoms or risk factors identified. Fall Risk None identified. Assessment: 14:38 General: Appears in no apparent distress. comfortable, Behavior is calm, cooperative, em Denies fever. Pain: Complains of pain in left upper quadrant and left lower quadrant Pain does not radiate. Pain currently is 8 out of 10 on a pain scale. Quality of pain is described as burning, sharp. Neuro: Level of Consciousness is awake, alert, obeys commands, Oriented to person, place, time, situation. Cardiovascular: Capillary refill < 3 seconds Patient's skin is warm and dry. Respiratory: Airway is patent Respiratory effort is even, unlabored, Respiratory pattern is regular, symmetrical. GI: Abdomen is round non-distended, Bowel sounds present X 4 quads. Abd is soft X 4 quads Abdomen is tender to palpation in left upper quadrant and left lower quadrant Reports diarrhea, vomiting, "maybe gas" Patient currently denies nausea. Derm: Skin is intact, is healthy with good turgor, Skin is pink, warm \\T\\ dry. Musculoskeletal: Capillary refill < 3 seconds, Range of motion: intact in all extremities. 14:45 Reassessment: Patient appears in no apparent distress at this time. I agree with the sg assessment made with Donny SAEZ. 15:50 Reassessment: Patient appears in no apparent distress at this time. Patient and/or em family updated on plan of care and expected duration. Pain level reassessed. Patient is alert, oriented x 3, equal unlabored respirations, skin warm/dry/pink. rates pain 8/10 Patient states symptoms have not improved. Vital Signs: 14:38 BP 139 / 90; Pulse 91; Resp 18; Temp 98.6(O); Pulse Ox 100% on R/A; Weight 102.06 kg; em Height 5 ft. 10 in. (177.80 cm); Pain 8/10; 15:50 BP 136 / 93; Pulse 82; Resp 18; Pulse Ox 98% on R/A; Pain 8/10; em 14:38 Body Mass Index 32.28 (102.06 kg, 177.80 cm) em ED Course: 14:23 Patient arrived in ED. dp 14:24 Jose Juan Marie DO is Private Physician. dp 14:27 Estuardo Galvan MD is Attending Physician. gs 14:32 Donyn Foley LVN is Primary Nurse. em 14:38 Arm band placed on. em 14:39 Patient has correct armband on for positive identification. Placed in gown. Bed in low em position. Call light in reach. Pulse ox on. NIBP on. 14:40 Triage completed. hb 14:50 Initial lab(s) drawn, by me, sent to lab. Inserted saline lock: 22 gauge in right em antecubital area, using aseptic technique. Blood collected. 15:02 CT completed. Patient tolerated procedure well. Patient moved back from CT. mw3 15:02 CT Stone Protocol In Process Unspecified. EDMS 15:33 Brett Ruth MD is Referral Physician. gs 15:43 No provider procedures requiring assistance completed. em 15:50 IV discontinued, intact, bleeding controlled, No redness/swelling at site. Pressure em dressing applied. Administered Medications: 14:53 Drug: TORadol - Ketorolac 15 mg Route: IVP; Site: right antecubital; hb 15:52 Follow up: Response: No adverse reaction; Pain is unchanged, physician notified em Outcome: 15:33 Discharge ordered by . gs 15:49 Discharged to home ambulatory, with family. em 15:49 Condition: good 15:49 Discharge instructions given to patient, Instructed on discharge instructions, follow up and referral plans. Demonstrated understanding of instructions, follow-up care. 15:54 Patient left the ED. em Signatures: Dispatcher [employer] EDMS Brandon Berry RN RN sg Donny Foley, RETAIL BANKING MANAGER RETAIL BANKING MANAGER em Crystal Rutherford, NADEEM RN Estuardo Joel MD MD gs Willis, Michelle mw3 Santino [place] dp
[2019-04-02 16:11] VITALS: TEMP 98.6
[2019-04-02 16:12] VITALS: BP 136/93; O2SAT 98
== END 2019-04-02 15:54 | disposition home or self-care (01) ==
LOC: ER 14:19
DX: R10.32 Left lower quadrant pain (principal); N20.0 Calculus of kidney; E11.9 Type 2 diabetes mellitus without complications; E03.9 Hypothyroidism, unspecified; F90.9 Attention-deficit hyperactivity disorder, unspecified type
CPT/HCPCS: 36415; 74176; 76377; 80048; 83690; 85025; 96374; 99284

== ENCOUNTER 2021-04-29 06:28 | Day surgery (SDC) | payer OTHER ==
[2021-04-25 16:44] LABS: Absolute Lymphocytes (CBC) 1.9 K/uL (0.7-4.9); Basophils % 0.6 % (0-1.3); Lymphocytes % 22.4 % (15.3-44.8); MPV 8.8 fL (7.6-11.3); RBC Red Blood Cell Count 5.69 M/uL (4.33-5.43)
[2021-04-25 16:54] LABS: Potassium 4.2 mmol/L (3.5-5.1)
--- NOTE | 2021-04-25 17:36 | RAD REPORT ---
EXAM DESCRIPTION: RAD - Chest Pa And Lat (2 Views) - 04/25/2021 5:18 pm CLINICAL HISTORY: preop COMPARISON: Chest Pa And Lat (2 Views) dated 02/12/2018; Abdomen Acute Series dated 08/02/2016 FINDINGS: No evidence of edema or pneumonia. The heart size is within normal limits.No acute osseous abnormality. No significant pleural effusions or pneumothorax. IMPRESSION: No acute cardiopulmonary disease.
[2021-04-29] MEDS ORDERED: Ringers Lactate 1,000 ML IV ONE (07:05)
[2021-04-29] MEDS ORDERED: BUPIVACAINE 0.5% Inj,MDV 50 mL VIAL ONE (07:32)
[2021-04-29] MEDS ORDERED: KETOROLAC 30 MG/ML INJ ONE (07:39)
[2021-04-29] MEDS ORDERED: dexAMETHasone 10 MG/ML VIAL ONE ×2 (07:39→08:05)
[2021-04-29] MEDS ORDERED: MIDAZOLAM HCL 2 MG/2 ML INJ ONE (07:39)
[2021-04-29] MEDS ORDERED: FENTANYL CITR 100 MCG/2 ML ONE (07:39)
[2021-04-29] MEDS ORDERED: propofoL 200 MG/20 ML VIAL IV ONE (07:39)
[2021-04-29] MEDS ORDERED: ROCURONIUM 50 MG/5 ML VIAL IV ONE ×2 (07:40→08:22)
[2021-04-29] MEDS ORDERED: ONDANSETRON 4 MG/2 ML VIAL ONE ×2 (07:40→10:29)
[2021-04-29] MEDS ORDERED: LIDOCAINE 2% MPF 5 ML VIAL ONE (07:40)
[2021-04-29] MEDS ORDERED: CEFAZOLIN/SWI 1gm 1 GM/10 ML SYR ONE (07:56)
[2021-04-29] MEDS ORDERED: NS 0.9% VIAL 20 ML ONE (08:05)
[2021-04-29] MEDS ORDERED: BUPIVACAINE 0.25% PF 30 ML VIAL ONE (08:06)
--- NOTE | 2021-04-29 09:00 | P.BOP ---
Preoperative diagnosis: incarcerated tender ventral hernia, morbid obesity Postoperative diagnosis: same plus intrabdominal adhesions Primary procedure: Laparoscopic repair incarcerated ventral hernia with mesh Secondary procedure: laparoscopic lysis of adhesions [employer]: Yennifer Hutchinson) Estimated blood loss: <20cc Specimen: none Findings: as above Anesthesia: General Complications: None Implants: ventralight ST with Echo PS 15 x20 cm Transferred to: Recovery Room Condition: Good
[2021-04-29] MEDS ORDERED: Mastisol Adhesive Liq ONE (09:20)
[2021-04-29] MEDS ORDERED: GLYCOPYRROLATE 0.2 MG/ML SYR ONE (09:28)
[2021-04-29] MEDS ORDERED: NEOSTIGMINE 1 MG/ML -5 ML ONE (09:28)
[2021-04-29] MEDS: HYDROMORPHONE HCL 1 MG/ML INJ ONE ×4 (10:05→10:30)
[2021-04-29 11:25] VITALS: TEMP 98.2
[2021-04-29] MEDS ORDERED: HYDROCODONE/APAP 10/325 TAB ONE (11:25)
[2021-04-29 14:59] VITALS: BP 129/63; O2SAT 98
== END 2021-04-29 12:47 | disposition home or self-care (01) ==
LOC: OR 06:28
PROVIDERS: ATTEND Surgery
PROC: 0WUF4JZ Supplement Abdominal Wall with Synthetic Substitute, Percutaneous Endoscopic Approach (ICD-10-PCS; principal; 2021-04-29 07:30)
DX: K43.6 Other and unspecified ventral hernia with obstruction, without gangrene (principal); Z20.822 Contact with and (suspected) exposure to COVID-19
CPT/HCPCS: 93005; 85025; 80048; 36415; 71046; 49653; U0003; J2704; J2250; J3010; J1100 ×2; J1170 ×2; J2710; J0690; J7120; J2405 ×2

== ENCOUNTER 2022-03-23 22:08 | Emergency (ER) | payer OTHER ==
[2022-03-24] MEDS ORDERED: LIDOCAINE 1% W/EPI 1:100,000 MDV 20 ML VIAL ONE (01:30)
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
[2022-03-24 02:31] VITALS: TEMP 98.6
[2022-03-24 02:34] VITALS: BP 132/86; O2SAT 100
--- NOTE | 2022-03-24 14:30 | RAD REPORT ---
EXAM DESCRIPTION: RAD - Hand Left 3 View - 03/24/2022 12:21 am CLINICAL HISTORY: Puncture TECHNIQUE: Frontal, lateral and oblique views of the left hand. COMPARISON: No relevant prior studies available. FINDINGS: Bones/joints: The 4th distal phalanx is diminutive which may be related to remote trauma . No acute fracture. No dislocation. Soft tissues: Questionable soft tissue injury in the webspace between the 1st and 2nd metacarpals. There are a couple punctate radiodensities in this region which may reflect foreign bodies. IMPRESSION: Questionable soft tissue injury in the webspace between the 1st and 2nd metacarpals. The re are a couple punctate radiodensities in this region which may reflect foreign bodies. Electronically signed by: Buffy Armando MD 03/24/2022 1:08 AM CDT Due to temporary technical issues with the PACS/Fluency reporting system, reports are being signed by the in house radiologists without review as a courtesy to insure prompt reporting. The interpreting radiologist is fully responsible for the content of the report.
--- OUTSIDE RECORDS SUMMARY | 2022-04-02 00:45 | XMS REPORT | Continuity of Care Document ---
:1975 Author Organization [facility] t Address [address] [place] [address] [address] [place] [address] Care Team Providers Name Role Phone CRISTIN VALLADARES Primary Care Physician Unavailable MILENA DUFFY Attending Clinician Unavailable MILENA DUFFY Attending Clinician Unavailable Piper Choe RN Attending Clinician Unavailable Only, Ang Db Test Attending Clinician Unavailable Rosalia CARNEY, J Attending Clinician Paulino LINDSEY Attending Clinician Unavailable Lab, - Db Attending Clinician Unavailable Ino HERNANDEZ Attending Clinician INO Attending Clinician Unavailable ROESER Attending Clinician Unavailable Shannan KEYS Attending Clinician Unavailable ROESER Admitting Clinician Unavailable Payers Payer Name Policy Type Policy Number Effective Date Expiration Date Cindy CARRASCO/LAYLA [id number] 2020 MEDICARE ADVANTAGE 00:00:00 Problems Condition Condition Condition Status Onset Resolution Last Treating Co mments Source Name Details Category Date Date Treatment Clinician Date Chronic Chronic Disease Active Univers pain of pain of 2-16 ity of both both 00:00: [place] shoulders shoulders 00 [facility] millie Branch Chronic Chronic Disease Active Univers pain of pain of 2-16 [place] of [place] knees [place] Upper Upper Disease Active Univers extremity extremity 2-16 ity of weakness weakness 00:00: [place] 00 Medical Branch Weakness Weakness Disease Active Unive rs of both of both 2-16 ity of lower lower 00:00: [place] extremitie extremitie 00 Me dical s s Branch Injury of Injury of Disease Active Overview: Univers tendon of tendon of 3-06 [place] i ty of long head long head 00:00: [place] of this [place] of biceps, of biceps, 00 note Me dical left, left, might be Branch initial initial different encounter encounter from the original. Added automatic ally from request for surgery [id number] Allergies, Adverse Reactions, Alerts Allergy Allergy Status Severity Reaction(s) Onset Inactive Treating Comm ents Source Name Type Date Date Clinician Unable DA Active U 2020-09 [facility] to 0-27 Assess 00:00: 00 No Known DA Active U 2020-09 [facility] Drug 0-27 Allergie 00:00: s 00 NO KNOWN Drug Active Univers ALLERGIE Class ity of [facility] Social History Social Habit Start Date Stop Date Quantity Comments Source Exposure to 2022-02-06 2022-02-16 Not sure [facility] SARS-CoV-2 00:00:00 16:11:00 [facility] (event) Branch Alcohol intake 2021-07-02 2021-07-02 Current University 00:00:00 00:00:00 non-drinker of [facility] alcohol Branch (finding) Tobacco use and 2017-11-18 2017-11-18 Never used Universit y of exposure 00:00:00 00:00:00 [facility] Sex [birth year] Universit y of 00:00:00 00:00:00 [facility] Smoking Status Start Date Stop Date Source Light tobacco smoker 2017-11-18 00:00:00 [facility] Ordered Filled Start Stop Current Ordering Indication Dosage Frequency Signature Comments Components Source Medication Medication Date Date Medication? Clinician (SIG) Name Name azelastine 2020-09 Yes [id number] 1{spray Use 1 Univers 137 mcg 0-20 } [place] in ity of (0.1 %) 00:00: each [place] nasal spray 00 nostril 2 Med ical (two) Branch times daily. Use in each nostril as directed fluticasone 2020-09 Yes [id number] 1{spray Use 1 Univers propionate 0-20 } [place] in ity o f 50 00:00: each [place] mcg/actuati 00 nostril Medic al on nasal daily. Branch spray cetirizine 2020-09 Yes [id number] 10mg Take 1 Univers (ZYRTEC) 10 0-20 tablet by ity of mg tablet 00:00: mouth [place] 00 daily. Medical Branch guaiFENesin 2020-09 Yes [id number] 400mg Take 1 Univers 400 mg 0-20 tablet by ity of tablet 00:00: mouth [place] 00 every 4 Medical (four) Branch hours as needed for Cough. benzonatate 2020-09 Yes [id number] 200mg Take 2 Univers 100 mg 0-20 capsules ity of capsule 00:00: [place] 2 [place] 00 (two) Medical times Branch daily as needed for Cough. azelastine 2020-09 Yes [id number] 1{spray Use 1 Univers 137 mcg 0-20 } [place] in ity of (0.1 %) 00:00: each [place] nasal spray 00 nostril 2 Med ical (two) Branch times daily. Use in each nostril as directed fluticasone 2020-09 Yes [id number] 1{spray Use 1 Univers propionate 0-20 } [place] in ity o f 50 00:00: each [place] mcg/actuati 00 nostril Medic al on nasal daily. Branch spray cetirizine 2020-09 Yes [id number] 10mg Take 1 Univers (ZYRTEC) 10 0-20 tablet by ity of mg tablet 00:00: mouth [place] 00 daily. Medical Branch guaiFENesin 2020-09 Yes [id number] 400mg Take 1 Univers 400 mg 0-20 tablet by ity of tablet 00:00: mouth [place] 00 every 4 Medical (four) Branch hours as needed for Cough. benzonatate 2020-09 Yes [id number] 200mg Take 2 Univers 100 mg 0-20 capsules ity of capsule 00:00: [place] 2 [place] 00 (two) Medical times Branch daily as needed for Cough. azelastine 2020-09 Yes [id number] 1{spray Use 1 Univers 137 mcg 0-20 } [place] in ity of (0.1 %) 00:00: each [place] nasal spray 00 nostril 2 Med ical (two) Branch times daily. Use in each nostril as directed fluticasone 2020-09 Yes [id number] 1{spray Use 1 Univers propionate 0-20 } [place] in ity o f 50 00:00: each [place] mcg/actuati 00 nostril Medic al on nasal daily. Branch spray cetirizine 2020-09 Yes [id number] 10mg Take 1 Univers (ZYRTEC) 10 0-20 tablet by ity of mg tablet 00:00: mouth [place] 00 daily. Medical Branch guaiFENesin 2020-09 Yes [id number] 400mg Take 1 Univers 400 mg 0-20 tablet by ity of tablet 00:00: mouth [place] 00 every 4 Medical (four) Branch hours as needed for Cough. benzonatate 2020-09 Yes [id number] 200mg Take 2 Univers 100 mg 0-20 capsules ity of capsule 00:00: [place] mouth 2 [place] 00 (two) Medical times Branch daily as needed for Cough. azelastine 2020-09 Yes [id number] 1{spray Use 1 Univers 137 mcg 0-20 } [place] in ity of (0.1 %) 00:00: each [place] nasal spray 00 nostril 2 Med ical (two) Branch times daily. Use in each nostril as directed fluticasone 2020-09 Yes [id number] 1{spray Use 1 Univers propionate 0-20 } [place] in ity o f 50 00:00: each [place] mcg/actuati 00 nostril Medic al on nasal daily. Branch spray cetirizine 2020-09 Yes [id number] 10mg Take 1 Univers (ZYRTEC) 10 0-20 tablet by ity of mg tablet 00:00: mouth [place] 00 daily. Medical Branch guaiFENesin 2020-09 Yes [id number] 400mg Take 1 Univers 400 mg 0-20 tablet by ity of tablet 00:00: mouth [place] 00 every 4 Medical (four) Branch hours as needed for Cough. benzonatate 2020-09 Yes [id number] 200mg Take 2 Univers 100 mg 0-20 capsules ity of capsule 00:00: [place] mouth 2 [place] 00 (two) Medical times Branch daily as needed for Cough. HYDROcodone 2018-0 Yes 1{tbl} Take 1 Un venkata -acetaminop 7-13 tablet by ity of hen 5-325 00:00: mouth [place] mg tablet 00 every 4 Medical (four) Branch hours as needed for Pain (scale 7-10). HYDROcodone 2017- Yes 1{tbl} Take 1 Un ven[place]ata -acetaminop 7-13 tablet by ity of hen 5-325 00:00: mouth [place] mg tablet 00 every 4 Medical (four) Branch hours as needed for Pain (scale 7-10). HYDROcodone 2017- Yes 1{tbl} Take 1 Un ven[place]ata -acetaminop 7-13 tablet by ity of hen 5-325 00:00: mouth [place] mg tablet 00 every 4 Medical (four) Branch hours as needed for Pain (scale 7-10). HYDROcodone 2017- Yes 1{tbl} Take 1 Un ven[place]ata -acetaminop 7-13 tablet by ity of hen 5-325 00:00: mouth [place] mg tablet 00 every 4 Medical (four) Branch hours as needed for Pain (scale 7-10). phentermine Yes 37.5mg Take 37.5 Univers (ADIPEX-P) 7-11 mg by ity of 37.5 mg 15:39: mouth [place] tablet 25 daily with Medical breakfast. Branch phentermine Yes 37.5mg Take 37.5 Univers (ADIPEX-P) 7-11 mg by ity of 37.5 mg 15:39: mouth [place] tablet 25 daily with Medical breakfast. Branch phentermine Yes 37.5mg Take 37.5 Univers (ADIPEX-P) 7-11 mg by ity of 37.5 mg 15:39: mouth [place] tablet 25 daily with Medical breakfast. Branch phentermine Yes 37.5mg Take 37.5 Univers (ADIPEX-P) 7-11 mg by ity of 37.5 mg 15:39: mouth [place] tablet 25 daily with Medical breakfast. Branch testosteron Yes INJECT ONE Univers e cypionate 6-14 (1) ML(S) ity of 200 mg/mL 00:00: INTO THE [place] injection 00 MUSCLE Medical ONCE A Branch WEEK. testosteron Yes INJECT ONE Univers e cypionate 6-14 (1) ML(S) ity of 200 mg/mL 00:00: INTO THE [place] injection 00 MUSCLE Medical ONCE A Branch WEEK. testosteron Yes INJECT ONE Univers e cypionate 6-14 (1) ML(S) ity of 200 mg/mL 00:00: INTO THE [place] injection 00 MUSCLE Medical ONCE A Branch WEEK. testosteron 2017- Yes INJECT ONE Univers e cypionate 6-14 (1) ML(S) ity of 200 mg/mL 00:00: INTO THE [place] injection 00 MUSCLE Medical ONCE A Branch WEEK. pantoprazol Yes TAKE ONE Un ven[place]ata e 40 mg EC 5-16 (1) ity of tablet 00:00: TABLET(S) [place] 00 BY MOUTH Medical ONCE A Branch DAY. pantoprazol Yes TAKE ONE Un [place] e 40 mg EC 5-16 (1) ity of tablet 00:00: TABLET(S) [place] 00 BY MOUTH Medical ONCE A Branch DAY. pantoprazol Yes TAKE ONE Un [place] e 40 mg EC 5-16 (1) ity of tablet 00:00: TABLET(S) [place] 00 BY MOUTH Medical ONCE A Branch DAY. pantoprazol Yes TAKE ONE Un [place] e 40 mg EC 5-16 (1) ity of tablet 00:00: TABLET(S) [place] 00 BY MOUTH Medical ONCE A Branch DAY. diazePAM 10 Yes TAKE ONE Un [place] mg tablet 4-14 (1) ity of 00:00: TABLET(S) [place] 00 BY MOUTH Medical AT Branch BEDTIME. diazePAM 10 Yes TAKE ONE Un [place] mg tablet 4-14 (1) ity of 00:00: TABLET(S) [place] 00 BY MOUTH Medical AT Branch BEDTIME. diazePAM 10 Yes TAKE ONE Un [place] mg tablet 4-14 (1) ity of 00:00: TABLET(S) [place] 00 BY MOUTH Medical AT [place] BEDTIME. diazePAM 10 Yes TAKE ONE Un [place] mg tablet 4-14 (1) ity of 00:00: TABLET(S) [place] 00 BY MOUTH Medical AT Branch BEDTIME. metFORMIN 2017- Yes TAKE ONE Univ ers 500 mg 3-02 (1) ity of tablet 00:00: TABLET(S) [place] 00 BY MOUTH Medical TWICE A Branch DAY. glimepiride 2017- Yes TAKE ONE Un [place] 2 mg tablet 3-02 (1) ity of 00:00: TABLET(S) [place] 00 BY MOUTH Medical TWICE A Branch DAY. hydroCHLORO 2017- Yes TAKE ONE Un [place] thiazide 25 3-02 (1) ity of mg tablet 00:00: TABLET(S) [place] 00 BY MOUTH Medical ONCE A Branch DAY. metFORMIN Yes TAKE ONE Univ ers 500 mg 3-02 (1) ity of tablet 00:00: TABLET(S) [place] 00 BY MOUTH Medical TWICE A Branch DAY. glimepiride Yes TAKE ONE Un [place] 2 mg tablet 3-02 (1) ity of 00:00: TABLET(S) [place] 00 BY MOUTH Medical TWICE A Branch DAY. hydroCHLORO Yes TAKE ONE Un [place] thiazide 25 3-02 (1) ity of mg tablet 00:00: TABLET(S) [place] 00 BY MOUTH Medical ONCE A Branch DAY. metFORMIN Yes TAKE ONE Univ ers 500 mg 3-02 (1) ity of tablet 00:00: TABLET(S) [place] 00 BY MOUTH Medical TWICE A Branch DAY. glimepiride Yes TAKE ONE Un [place] 2 mg tablet 3-02 (1) ity of 00:00: TABLET(S) [place] 00 BY MOUTH Medical TWICE A Branch DAY. hydroCHLORO Yes TAKE ONE Un [place] thiazide 25 3-02 (1) ity of mg tablet 00:00: TABLET(S) [place] 00 BY MOUTH Medical ONCE A Branch DAY. metFORMIN Yes TAKE ONE Univ ers 500 mg 3-02 (1) ity of tablet 00:00: TABLET(S) [place] 00 BY MOUTH Medical TWICE A Branch DAY. glimepiride Yes TAKE ONE Un [place] 2 mg tablet 3-02 (1) ity of 00:00: TABLET(S) [place] 00 BY MOUTH Medical TWICE A Branch DAY. hydroCHLORO 2017- Yes TAKE ONE Un [place] thiazide 25 3-02 (1) ity of mg tablet 00:00: TABLET(S) [place] 00 BY MOUTH Medical ONCE A Branch DAY. levothyroxi 2017- Yes TAKE ONE Un [place] ne 50 mcg 2-23 (1) ity of tablet 00:00: TABLET(S) [place] 00 BY MOUTH Medical ONCE A Branch DAY. levothyroxi 2017-0 Yes TAKE ONE Un [place] ne 50 mcg 2-23 (1) ity of tablet 00:00: TABLET(S) [place] 00 BY MOUTH Medical ONCE A Branch DAY. levothyroxi 2017-0 Yes TAKE ONE Un [place] ne 50 mcg 2-23 (1) ity of tablet 00:00: TABLET(S) [place] 00 BY MOUTH Medical ONCE A Branch DAY. levothyroxi 2017-0 Yes TAKE ONE Un [place] ne 50 mcg 2-23 (1) ity of tablet 00:00: TABLET(S) [place] 00 BY MOUTH Medical ONCE A Branch DAY. traMADOL 50 0 Yes TAKE ONE Un [place] mg tablet 2-15 (1) ity of 00:00: TABLET(S) [place] 00 BY MOUTH Medical EVERY SIX Branch HOURS. traMADOL 50 0 Yes TAKE ONE Un [place] mg tablet 2-15 (1) ity of 00:00: TABLET(S) [place] 00 BY MOUTH Medical EVERY SIX Branch HOURS. traMADOL 50 2017-0 Yes TAKE ONE Un [place] mg tablet 2-15 (1) ity of 00:00: TABLET(S) [place] 00 BY MOUTH Medical EVERY SIX Branch HOURS. traMADOL 50 2017-0 Yes TAKE ONE Un [place] mg tablet 2-15 (1) ity of 00:00: TABLET(S) [place] 00 BY MOUTH Medical EVERY SIX Branch HOURS. sildenafil 2017-0 Yes TAKE ONE Uni vers 100 mg 1-07 (1) ity of tablet 00:00: TABLET(S) [place] 00 BY MOUTH Medical 30 MINUTES Branch PRIOR TO SEX. sildenafil 2017-0 Yes TAKE ONE Uni vers 100 mg 1-07 (1) ity of tablet 00:00: TABLET(S) [place] 00 BY MOUTH Medical 30 MINUTES Branch PRIOR TO SEX. sildenafil 2017-0 Yes TAKE ONE Uni vers 100 mg 1-07 (1) ity of tablet 00:00: TABLET(S) [place] 00 BY MOUTH Medical 30 MINUTES Branch PRIOR TO SEX. sildenafil 2017-0 Yes TAKE ONE Uni vers 100 mg 1-07 (1) ity of tablet 00:00: TABLET(S) [place] 00 BY MOUTH Medical 30 MINUTES Branch PRIOR TO SEX. Vital Signs Vital Name Observation Time Observation Value Comments Source Systolic blood 2022-01-05 17:13:00 129 mm[Hg] Univer sity [facility] pressure [facility] Diastolic blood 2022-01-05 17:13:00 75 mm[Hg] [facility] Heart rate 2022-01-05 17:13:00 104 /min [facility] Body weight 2022-01-05 17:13:00 111.585 kg [facility] BMI 2022-01-05 17:13:00 35.30 kg/m2 [facility] Oxygen saturation 2022-01-05 17:13:00 95 /min [facility] in Arterial blood Medical Br anch by Pulse oximetry Procedures This patient has no known procedures. Encounters Start End Encounter Admission Attending Care Care Encounter Source Date/Time Date/Time Type Type Clinicians Facility Department ID 2021-07-09 Inpatient [facility] [id number] [facility] 10:25:00 23 2022-07-13 2022-07-13 Outpatient R MILENA DUFFY [facility] [id number] [facility] 09:00:00 09:00:00 MILENA DUFFY [id number] [facility] 2022-07-13 2022-07-13 Outpatient R MILENA DUFFY [facility] [id number] Univers 09:00:00 09:00:00 MILENA DUFFY [facility] 2022-02-17 2022-02-17 Telephone ДмитрийGENEVA [id number] Univers 00:00:00 00:00:00 Piper MCCLENDON [id number] it [facility] [id number] [place] [id number] [address] 2022-02-16 2022-02-16 Laboratory Only, Ang Db Test [facility] 1.2.8 40.114 [id number] Univers 16:15:00 16:30:00 Only Jolynn Lindsey [id number] [id number] [place] as MEL?BLEA [id number] Me [address] MEDICAL OFFICE BUILDING 2022-02-16 2022-02-16 Outpatient R [facility] [id number] Univers 16:15:00 16:15:00 [id number] [facility] 2022-02-16 2022-02-16 Outpatient R ROSALIA [facility] [id number] [facility] 16:15:00 16:15:00 JOLYNN villegas o f [facility] 2022-01-05 2022-01-05 [employer] [facility], Ang - Db [facility] [id number] Univers 12:45:00 13:00:00 Visit Ino [facility] [id number] ity of [place] [id number] [place] as MEL?BLEA [id number] Sc willjuventino KENNEDY [address] [facility] OFFICE [facility] 2022-01-05 2022-01-05 Outpatient R [facility] [id number] Univers 12:45:00 12:45:00 [id number] [facility] 2022-01-05 2022-01-05 [id number] Univers 12:45:00 12:45:00 [facility] 2022-01-05 2022-01-05 Office [facility] [id number] Univers 12:00:00 12:30:00 Visit [facility] [id number] it y of [place] [id number] [place] MEL?BLEA [id number] Sc willjuventino [address] OFFICE [facility] 2021-12-05 2021-12-06 Inpatient [facility] [id number] [place] 00:00:00 00:00:00 CAMILA 391 Method i 2021-12-04 2021-12-04 Outpatient ROESER, [facility] [id number] [place] 00:00:00 00:00:00 CAMILA 039 Method i 2021-12-04 2021-12-04 Outpatient ROESER, [facility] [id number] [place] 00:00:00 00:00:00 CAMILA 154 Method i 2021-12-01 2021-12-01 Outpatient ROESER, [facility] [id number] [place] 00:00:00 00:00:00 CAMILA 467 Method i 2021-11-20 2021-11-20 Outpatient R LUDMILA [facility] [id number] Univers 08:45:00 08:45:00 GISELA [facility] 2021-11-06 2021-11-06 Outpatient R LUDMILA, [facility] [id number] Univers 08:45:00 09:46:[address] [facility] Results Test Description Test Time Test Comments Results Result Comments Source SARS-CoV-2 (COVID-19) RNA [Presence] in Respiratory sp ecimen by 2021-12-01 20:07:20 PEREZ with probe detection Test Item Value Reference Range Interpretation Comme nts SARS-CoV-2 (COVID-19) RNA [Presence] in Respiratory specimen by Not detected PEREZ with probe detection (test code = 99556-6) Whether patient is employed in a healthcare setting (test code = Un known 39677-4) Whether the patient has symptoms related to condition of interest U nknown (test code = 96184-6) Whether the patient was hospitalized for condition of interest Unkn own (test code = 17944-1) Whether the patient was admitted to intensive care unit (ICU) for U nknown condition of interest (test code = 71841-4) Whether patient resides in a congregate care setting (test code = U nknown 45270-5) status (test code = 40342-0) Unknown Date and time of symptom onset (test code = 55676-3) Unknown
== END 2022-03-24 02:24 | disposition home or self-care (01) ==
LOC: ER 22:08
PROC: 0JQK0ZZ Repair Left Hand Subcutaneous Tissue and Fascia, Open Approach (ICD-10-PCS; principal; 2022-03-24)
DX: S61.012A Laceration without foreign body of left thumb without damage to nail, initial encounter (principal); S61.211A Laceration without foreign body of left index finger without damage to nail, initial encounter; E11.9 Type 2 diabetes mellitus without complications
CPT/HCPCS: 99283

== ENCOUNTER 2023-01-02 11:19 | Inpatient (IN) | payer OTHER ==
--- OUTSIDE RECORDS SUMMARY | 2023-01-02 11:26 | XMS REPORT | Continuity of Care Document ---
:1975 Author Organization [facility] t Address [address] [facility]. [address] [place] [address] Care Team Providers Name Role Phone BLAINEJANETTGeoANNELISE Primary Care Physician Unavailable MILENA DUFFY Attending Clinician Unavailable MILENA DUFFY Attending Clinician Unavailable Piper Choe RN Attending Clinician Unavailable Only, Paul Db Test Attending Clinician Unavailable Jolynn Domingo Attending Clinician JOLYNN LINDSEY Attending Clinician Unavailable Lab, Ang - Db Attending Clinician Unavailable Debora Mckinnon MD Attending Clinician DEBORA MCKINNON Attending Clinician Unavailable CAMILA EDWARD Attending Clinician Unavailable Blanca Barnett PT Attending Clinician Unavailable Gisela Keys MD Attending Clinician GISELA KEYS Attending Clinician Unavailable Brian Leos PTA Attending Clinician Unavailable Ariana Leos PTA Attending Clinician Unavailable Madelaine Delgado PT Attending Clinician Unavailable Doctor Unassigned, [place] Attending Clinician Unavailable Siobhan Santos Attending Clinician SIOBHAN SERRANO Attending Clinician Unavailable Julisa Padron RN Attending Clinician Unavailable Mulugeta Teresa DO Attending Clinician rBi Hilton Attending Clinician BRI SHEPPARD Attending Clinician Unavailable Chica Vargas MD Attending Clinician Varun Hart MD Attending Clinician VARUN HART Attending Clinician Unavailable VARUN HART Attending Clinician Unavailable 1, [facility] Attending Clinician Unavailable Only, [facility] Test Attending Clinician Unavailable Eduardo Rizo MD Attending Clinician Lab, [facility] Fam Pob I Attending Clinician Unavailable Charlene Garay Attending Clinician CHARLENE RUIZ Attending Clinician Unavailable Gavin Oneill Attending Clinician GAVIN HUNT Attending Clinician Unavailable CAMILA EDWARD Admitting Clinician Unavailable Payers Payer Name Policy Type Policy Number Effective Date Expiration Date Cindy howell DANILO/LAYLA [id number] 2020 MEDICARE ADVANTAGE 00:00:00 Problems Condition Condition Condition Status Onset Resolution Last Treating Co mments Source Name Details Category Date Date Treatment Clinician Date Myelopathy Myelopathy Disease Active M ethodi concurrent concurrent 3-26 st with and with and 00:00: Hospit a due to due to 00 l spinal spinal stenosis stenosis of of cervical cervical region region S/P S/P Disease Active [facility] cervical cervical 3-25 st spinal spinal 00:00: Hospita fusion fusion 00 l Chronic Chronic Disease Active Univers pain of pain of 2-16 ity of both both 00:00: [place] shoulders shoulders 00 Medi millie Branch Chronic Chronic Disease Active Univers pain of pain of 2-16 [place]y of [place] knees [place] Upper Upper Disease Active Univers extremity extremity 2-16 ity of weakness weakness 00:00: [place] 00 Medical Branch Weakness Weakness Disease Active [...] Added automatic ally from request for surgery [id number] Allergies, Adverse Reactions, Alerts Allergy Allergy Status Severity Reaction(s) Onset Inactive Treating Comm ents Source Name Type Date Date Clinician Unable DA Active U 2020-09 [facility] to 0-27 Assess 00:00: 00 No Known DA Active U 2020-09 [facility] Drug 0-27 Allergie 00:00: s 00 NO KNOWN Drug Active [facility] ALLERGIE [facility] Family History Family Member Diagnosis Comments Start Date Stop Date Source Natural father Prostate cancer [facility] Natural father Testicular cancer [facility] Natural mother Breast cancer [facility] Social History Social Habit Start Date Stop Date Quantity Comments Source History of Current smoker [facility] tobacco use Exposure to 2022-02-06 2022-02-16 Not sure University SARS-CoV-2 00:00:00 16:11:00 [facility] [place] Alcohol intake 2021-12-08 2021-12-08 Ex-drinker [facility] 00:00:00 00:00:00 (finding) Tobacco use and 2021-12-05 2021-12-05 Smokeless tobacco [facility] exposure 00:00:00 00:00:00 non-user Tobacco Comment 2021-12-05 2021-12-05 in high school [facility] 00:00:00 00:00:00 [birth year] [facility] 00:00:00 00:00:00 Smoking Status Start Date Stop Date Source Ex-smoker 2021-12-05 00:00:00 2021-12-05 00:00:00 [facility] Light tobacco smoker 2017-11-18 00:00:00 [facility] Medications Ordered Filled Start Stop Current Ordering Indication Dosage Frequency Signature Comments Components Source Medication Medication Date Date Medication? Clinician (SIG) Name Name UNABLE TO Yes Antibiotic Me thodi FIND 3-[address] 15:22: a day (pt Hospita 02 could not l remember the name) b complex Yes 1{capsu QD Take [facility] le} capsule by st capsule 15:22: mouth [facility]ospita 54 daily. l cyanocobala 2022-0 Yes 1000ug Inject Me thodi min 1,000 3-26 1,[address] mcg/mL 15:22: into the Hospita injection 54 shoulder, l thigh, or buttocks once. testosteron Yes 200mg Q7D Inject 200 Methodi e cypionate 3-[address] (DEPOTESTOT 15:22: the Hospit a ERONE 54 shoulder, l CYPIONATE) thigh, or 200 mg/mL buttocks injection once a week. Wednesday pantoprazol Yes 40mg QD Take 40 mg Methodi e 3-[address] (PROTONIX) 15:22: daily. Hospi ta 40 MG EC 54 l tablet eszopiclone Yes 3mg QD Take 3 mg M ethodi (LUNESTA) 3 3-[address] mg tablet 15:22: nightly. [facility] 54 Take l immediatel y before bedtime topiramate Yes 50mg Q.5D Take 50 mg M ethodi (TOPAMAX) 3-[address] 50 MG 15:22: (two) Hospita tablet 54 times a l day. hydroCHLORO Yes 25mg QD Take 25 mg Methodi thiazide 3-[address] (HYDRODIURI 15:22: daily. [facility] L) 25 MG 54 l tablet phentermine Yes 37.5mg QD Take 37.5 Methodi 37.5 MG 3-[address] capsule 15:22: mouth Hospita 54 every l morning. azelastine 2020-09 Yes [id number] 1{spray Use 1 Univers 137 mcg 0-20 } [place] in ity of (0.1 %) 00:00: each [place] nasal spray 00 nostril 2 Med ical (two) Branch times daily. Use in each nostril as directed fluticasone 2020-09 Yes [id number] 1{spray Use 1 Univers propionate 0-20 } [place] in ity o f 50 00:00: each [place] mcg/actuati 00 nostril Medic al on nasal daily. Branch spray cetirizine 2020-09 Yes [id number] 10mg Take 1 Univers (ZYRTEC) 10 0-20 tablet by ity of mg tablet 00:00: mouth [place] 00 daily. Medical Branch guaiFENesin 2020-09 Yes [id number] 400mg Take 1 Univers 400 mg 0-20 tablet by ity of tablet 00:00: mouth [place] 00 every 4 Medical (four) Branch hours as needed for Cough. benzonatate 2020-09 Yes [id number] 200mg Take 2 Univers 100 mg 0-20 capsules ity of capsule 00:00: [place] mouth 2 [place] 00 (two) Medical times Branch daily as needed for Cough. azelastine 2020-09 Yes [id number] 1{spray Use 1 Univers 137 mcg 0-20 } [place] in ity of (0.1 %) 00:00: each [place] nasal spray 00 nostril 2 Med ical (two) Branch times daily. Use in each nostril as directed fluticasone 2020-09 Yes [id number] 1{spray Use 1 Univers propionate 0-20 } [place] in ity o f 50 00:00: each [place] mcg/actuati 00 nostril Medic al on nasal daily. Branch spray cetirizine 2020-09 Yes [id number] 10mg Take 1 Univers (ZYRTEC) 10 0-20 tablet by ity of mg tablet 00:00: mouth [place] 00 daily. Medical Branch guaiFENesin 2020-09 Yes [id number] 400mg Take 1 Univers 400 mg 0-20 tablet by ity of tablet 00:00: mouth [place] 00 every 4 Medical (four) Branch hours as needed for Cough. benzonatate 2020-09 Yes [id number] 200mg Take 2 Univers 100 mg 0-20 capsules ity of capsule 00:00: [place] mouth 2 [place] 00 (two) Medical times Branch daily as needed for Cough. azelastine 2020-09 Yes [id number] 1{spray Use 1 Univers 137 mcg 0-20 } [place] in ity of (0.1 %) 00:00: each [place] nasal spray 00 nostril 2 Med ical (two) Branch times daily. Use in each nostril as directed fluticasone 2020-09 Yes [id number] 1{spray Use 1 Univers propionate 0-20 } [place] in ity o f 50 00:00: each [place] mcg/actuati 00 nostril Medic al on nasal daily. Branch spray cetirizine 2020-09 Yes [id number] 10mg Take 1 Univers (ZYRTEC) 10 0-20 tablet by ity of mg tablet 00:00: mouth [place] 00 daily. Medical Branch guaiFENesin 2020-09 Yes [id number] 400mg Take 1 Univers 400 mg 0-20 tablet by ity of tablet 00:00: mouth [place] 00 every 4 Medical (four) Branch hours as needed for Cough. benzonatate 2020-09 Yes [id number] 200mg Take 2 Univers 100 mg 0-20 capsules ity of capsule 00:00: by mouth 2 [place] 00 (two) Medical times Branch daily as needed for Cough. azelastine 2020-09 Yes [id number] 1{spray Use 1 Univers 137 mcg 0-20 } [place] in ity of (0.1 %) 00:00: each [place] nasal spray 00 nostril 2 Med ical (two) Branch times daily. Use in each nostril as directed fluticasone 2020-09 Yes [id number] 1{spray Use 1 Univers propionate 0-20 } [place] in ity o f 50 00:00: each [place] mcg/actuati 00 nostril Medic al on nasal daily. Branch spray cetirizine 2020-09 Yes [id number] 10mg Take 1 Univers (ZYRTEC) 10 0-20 tablet by ity of mg tablet 00:00: mouth [place] 00 daily. Medical Branch guaiFENesin 2020-09 Yes [id number] 400mg Take 1 Univers 400 mg 0-20 tablet by ity of tablet 00:00: mouth [place] 00 every 4 Medical (four) Branch hours as needed for Cough. benzonatate 2020-09 Yes [id number] 200mg Take 2 Univers 100 mg 0-20 capsules ity of capsule 00:00: by mouth 2 [place] 00 (two) Medical times Branch daily as needed for Cough. HYDROcodone Yes 1{tbl} Take 1 Un venkata -acetaminop 7-13 tablet by ity of hen 5-325 00:00: mouth [place] mg tablet 00 every 4 Medical (four) Branch hours as needed for Pain (scale 7-10). HYDROcodone Yes 1{tbl} Take 1 Un venkata -acetaminop [...] as needed for Pain (scale 7-10). HYDROcodone 2017-0 Yes 1{tbl} Take 1 Un venkata -acetaminop 7-13 tablet by ity of hen 5-325 00:00: mouth [place] mg tablet 00 every 4 Medical (four) Branch hours as needed for Pain (scale 7-10). phentermine 2017- Yes 37.5mg Take 37.5 Univers (ADIPEX-P) 7-11 [...] MOUTH Medical ONCE A Branch DAY. pantoprazol 2017- Yes TAKE ONE Un venkata e 40 mg EC 5-16 (1) ity of tablet 00:00: TABLET(S) [place] 00 BY MOUTH Medical ONCE A Branch DAY. pantoprazol 2017- Yes TAKE ONE Un venkata e 40 [...] TABLET(S) [place] 00 BY MOUTH Medical AT [place] BEDTIME. diazePAM 10 Yes TAKE ONE Un venkata mg tablet 4-14 (1) ity of 00:00: TABLET(S) [place] 00 BY MOUTH Medical AT [place] BEDTIME. diazePAM 10 Yes TAKE ONE Un [...] MOUTH Medical ONCE A Branch DAY. metFORMIN 2017- Yes TAKE ONE Univ ers 500 mg 3-02 (1) ity of tablet 00:00: TABLET(S) [place] 00 BY MOUTH Medical TWICE A Branch DAY. glimepiride 2017-0 Yes TAKE ONE Un ven[place]ata 2 mg tablet 3-02 (1) ity of 00:00: TABLET(S) [place] 00 BY MOUTH Medical TWICE A Branch DAY. hydroCHLORO 2017-0 Yes TAKE ONE Un ven[place]ata thiazide 25 3-02 (1) ity of mg tablet 00:00: TABLET(S) [place] 00 BY MOUTH Medical ONCE A Branch DAY. metFORMIN 2017-0 Yes TAKE ONE Univ ers 500 mg 3-02 (1) ity of tablet 00:00: TABLET(S) [place] 00 BY MOUTH Medical TWICE A Branch DAY. glimepiride 2017-0 Yes TAKE ONE Un venkata 2 mg tablet 3-02 (1) ity of 00:00: TABLET(S) [place] 00 BY MOUTH Medical TWICE A Branch DAY. hydroCHLORO 2017-0 Yes TAKE ONE Un [place] thiazide 25 3-02 (1) ity of mg tablet 00:00: TABLET(S) [place] 00 BY MOUTH Medical ONCE A Branch DAY. metFORMIN 2017-0 Yes TAKE ONE Univ ers 500 mg 3-02 (1) ity of tablet 00:00: TABLET(S) [place] 00 BY MOUTH Medical TWICE A Branch DAY. glimepiride 2017-0 Yes TAKE ONE Un [place] 2 mg tablet 3-02 (1) ity of 00:00: TABLET(S) [place] 00 BY MOUTH Medical TWICE A Branch DAY. hydroCHLORO 2017-0 Yes TAKE ONE Un vnekata thiazide 25 3-02 (1) ity of mg [...] MOUTH Medical ONCE A Branch DAY. levothyroxi 2018-0 Yes TAKE ONE Un [place] ne 50 mcg 2-23 (1) ity of tablet 00:00: TABLET(S) [place] 00 BY MOUTH Medical ONCE A Branch DAY. traMADOL 50 Yes TAKE ONE Un [place] mg tablet 2-15 (1) ity of 00:00: TABLET(S) [place] 00 BY MOUTH Medical EVERY SIX Branch HOURS. traMADOL 50 Yes TAKE ONE Un [place] mg tablet 2-15 (1) ity of 00:00: TABLET(S) [place] 00 BY MOUTH Medical EVERY SIX Branch HOURS. traMADOL 50 Yes TAKE ONE Un [place] mg tablet 2-15 (1) ity of 00:00: TABLET(S) [place] 00 BY MOUTH Medical EVERY SIX Branch HOURS. traMADOL 50 Yes TAKE ONE Un [place] mg tablet 2-15 (1) ity of 00:00: TABLET(S) [place] 00 BY MOUTH Medical EVERY SIX Branch HOURS. sildenafil Yes TAKE ONE Uni vers 100 mg 1-07 (1) ity of tablet 00:00: TABLET(S) [place] 00 BY MOUTH Medical 30 MINUTES Branch PRIOR TO SEX. sildenafil Yes TAKE ONE Uni vers 100 mg 1-07 (1) ity of tablet 00:00: TABLET(S) [place] 00 BY MOUTH Medical 30 MINUTES Branch PRIOR TO SEX. sildenafil Yes TAKE ONE Uni vers 100 mg 1-07 (1) ity of tablet 00:00: TABLET(S) [place] 00 BY MOUTH Medical 30 MINUTES Branch PRIOR TO SEX. sildenafil Yes TAKE ONE Uni vers 100 mg 1-07 (1) ity of tablet 00:00: TABLET(S) [place] 00 BY MOUTH Medical 30 MINUTES Branch PRIOR TO SEX. Vital Signs Vital Name Observation Time Observation Value Comments Source Systolic blood 2022-01-05 17:13:00 129 mm[facility]Hg[facility] Diastolic blood 2022-01-05 17:13:00 75 mm[Hg[facility] rate 2022-01-05 17:13:00 104 /min [facility] Body weight 2022-01-05 17:13:00 111.585 kg [facility] BMI 2022-01-05 17:13:00 35.30 kg/m2 [facility] Oxygen saturation 2022-01-05 17:13:00 95 /min [facility] in Arterial blood Medical Br anch by Pulse oximetry Procedures This patient has no known procedures. Plan of Care Planned Activity Planned Date Details Comments Source Future Scheduled 2022-12-15 COVID-19 VACCINE (#1) [facility] Hospital Test 04:46:45 [code = COVID-19 VACCINE (#1)] Future Scheduled 2022-12-15 Hepatitis C screening [facility] Hospital Test 04:46:45 (procedure) [code = 707713072] Future Scheduled 2022-12-15 COLONOSCOPY SCREENING [facility] Hospital Test 04:46:45 [code = COLONOSCOPY SCREENING] Future Scheduled 2022-12-15 INFLUENZA VACCINE Method ist Hospital Test 04:46:45 [code = INFLUENZA VACCINE] Encounters Start End Encounter Admission Attending Care Care Encounter Source Date/Time Date/Time Type Type Clinicians Facility Department ID 2021-07-09 Inpatient [facility] [id number] [facility] 10:25:00 23 2022-07-13 2022-07-13 Outpatient R MILENA DUFFY [facility] [id number] Univers 09:00:00 09:00:[address] [facility] 2022-02-17 2022-02-17 Telephone GENEVA Choe [id number] Univers 00:00:00 00:00:00 Piper MCCLENDON [id number] it y of [facility] 4.2.7.2.686 [place] as [phone] [address] 2022-02-16 2022-02-16 Laboratory Only, Paul Db Test [facility] 1.2.8 40.114 [id number] Univers 16:15:00 16:30:00 Only Jolynn Lindsey [facility] 350.1.13.10 ity of [place] 4.2.7.2.686 [place] TIAGO?BLEA [phone] [address] MEDICAL OFFICE BUILDING 2022-02-16 2022-02-16 Outpatient R ROSALIA [facility] [id number] Univers 16:15:00 16:15:00 JOLYNN villegas o f [facility] 2022-01-05 2022-01-05 [facility] Director Lab, Ang - Db [facility] 1.2.840.1 [id number] [facility] 12:45:00 13:00:00 Visit Ino [facility] [id number] ity of [place] 4.2.7.2.686 [place] TIAGO?BLEA [id number] La howard BARRON [address] [facility] OFFICE [facility] 2022-01-05 2022-01-05 [facility] [id number] [facility] 12:45:00 12:45:00 [facility] 2022-01-05 2022-01-05 [facility] [id number] [facility] 12:00:00 12:30:00 Visit [facility] [id number] it y of [place] 4.2.7.2.686 [place] TIAGO?BLEA [id number] La howard [address] 2022-01-05 2022-01-05 [facility] [id number] [facility] 12:00:00 12:00:00 [facility] 2021-12-05 2021-12-06 Inpatient ROESER, [facility] [id number] [place] 00:00:00 00:00:00 CAMILA 391 Method i 2021-12-04 2021-12-04 Outpatient ROESER, [facility] [id number] [place] 00:00:00 00:00:00 CAMILA 039 Method i 2021-12-04 2021-12-04 Outpatient ROESER, [facility] [id number] [place] 00:00:00 00:00:00 CAMILA 154 Method i 2021-12-01 2021-12-01 Outpatient ROESER, [facility] [id number] [place] 00:00:00 00:00:00 CAMILA 467 Method i 2021-11-24 2021-11-24 Ancillary Blanca Barnett [facility] 1 .2.840.114 [id number] Univers 09:30:00 10:30:34 Visit Gisela Keys [place] 350.1.13.10 ity of [facility] 4.2.7.2.686 [place] PROF[place] [phone] La dical NAL 179 [facility] 2021-11-20 2021-11-20 Outpatient R LUDMILA [facility] [id number] Univers 08:45:00 08:45:[address] [facility] 2021-11-20 2021-11-20 Outpatient R LUDMILA [facility] [id number] Univers 08:45:00 08:45:[address] [facility] 2021-11-13 2021-11-13 Ancillary Brian Leos [facility] 1.2.840. 114 [id number] Univers 08:00:00 08:45:00 Visit Gisela Keys 350.1.13.10 ity of [facility] 4.2.7.2.686 [place] [phone] La dical NAL [address] [place] [address] 2021-11-06 2021-11-06 Outpatient R LUDMILA [facility] [id number] Univers 08:45:00 09:46:[address] [facility] 2021-11-06 2021-11-06 Ancillary Ariana Leos [facility] 1.2.840 .114 [id number] Univers 08:45:00 09:30:00 Visit Gisela Keys 350.1.13.10 ity of [facility] 4.2.7.2.686 [place] PROF[place] [phone] La dical NAL [address] [place] [address] 2021-11-05 2021-11-05 Ancillary Ariana Leos [facility] 1.2.840 .114 [id number] Univers 08:45:00 09:47:11 Visit Gisela Keys 350.1.13.10 ity of [facility] 4.2.7.2.686 [place] [phone] La dical NAL [address] [place] [address] 2021-10-29 2021-10-29 Outpatient R KEYS [facility] [id number] Univers 08:00:00 08:57:[address] [facility] 2021-10-29 2021-10-29 Ancillary Madelaine Delgado [facility] 1.2.84 0.114 [id number] Univers 08:00:00 08:57:53 Visit Gisela Keys 350.1.13.10 ity of [place] 4.2.7.2.686 [place] ANGELAIO [phone] La dical NAL 179 [facility] 2021-10-15 2021-10-15 Orders Doctor BEAN 1.2.840.114 [id number] Univers 00:00:00 00:00:00 Only Unassigned, HAKAN 350.1.13.10 ity of [place] [facility] 4.2.7.2.[address] [place] [phone] [facility] 009 [place] 2021-10-08 2021-10-08 Telephone Ludmila [facility] 1.2.840.114 [id number] Univers 00:00:00 00:00:00 Gisela Campbell [facility] 350.1.13.10 it y of [place] 4.2.7.2.686 [place] TIAGO?BLEA [id number] La dicjuventino KENNEDYEY [address] [facility] OFFICE [facility] 2021-09-24 2021-09-24 Laboratory Only, Ang Db Test [facility] 1.2.8 40.114 [id number] Univers 20:30:00 20:45:00 Only Siobhan Serrano 350.1.13.10 ity of [place] 4.2.7.2.686 [place] TIAGO?BLEA [id number] La dicjuventino BARRON 370 [facility] 2021-09-24 2021-09-24 Outpatient R MAGGIE [facility] [id number] Univers 20:30:00 20:30:00 SIOBHAN villegas o f [facility] 2021-09-20 2021-09-20 Letter GENEVA Padron 1.2.840.114 [id number] Univers 00:00:00 00:00:00 (Out) Julisa MCCLENDON 350.1.13.10 it y of [facility] 4.2.7.2.[address] [place] [phone] [facility] 019 [place] 2021-09-19 2021-09-19 Orders Doctor BEAN 1.2.840.114 [id number] Univers 00:00:00 00:00:00 Only Unassigned, HAKAN 350.1.13.10 ity of [place] [facility]OSPITAL 4.2.7.2.[address] [place] [phone] [facility] 009 Branch 2021-09-18 2021-09-18 Laboratory Only, Ang Db Test [facility] 1.2.8 40.114 [id number] Univers 17:15:00 17:30:00 Only Mulugeta Teresa [facility] 350.1.13. 10 ity of [place] 4.2.7.2.686 [place] TIAGO?BLEA [phone] [address] MEDICAL OFFICE BUILDING 2021-09-18 2021-09-18 Outpatient R VALARIE [facility] [id number] Univers 17:15:00 17:15:00 BRI ity of [facility] 2021-07-18 2021-07-18 Orders Doctor BEAN 1.2.840.114 [id number] Univers 00:00:00 00:00:00 Only Unassigned, HAKAN 350.1.13.10 ity of [place] HOSPITAL 4.2.7.2.[address] [place] [phone] [facility] 009 Branch 2021-07-09 2021-07-09 Emergency [facility] [id number] [facility] 10:25:00 10:25:00 23 2021-07-03 2021-07-03 Letter GENEVA Padron 1.2.840.114 [id number] Univers 00:00:00 00:00:00 (Out) Julisa MCCLENDON 350.1.13.10 it y of HOSPITAL 4.2.7.2.[address] [place] [phone] [facility] 019 Branch 2021-07-02 2021-07-02 Outpatient R [facility] [id number] Univers 13:00:00 13:00:00 ity of [facility] 2021-07-02 2021-07-02 Urgent Chica Vargas [facility] 1.2.840.114 [id number] Univers 10:11:08 11:01:54 Care Siobhan Serrano [facility] 350.1.13.10 ity of [place] 4.2.7.2.686 [place] Tiago?Blea [phone] La howard ey [address] [place] [facility] 2021-05-21 2021-05-21 Office Tanner [facility] 1.2.612.549 [id number] Univers 11:23:34 11:43:34 Visit Jasonclaude Bolton Denisse 350.1.13.10 ity of [place] Profess[place] [phone] [facility] 085 [facility] 2021-05-21 2021-05-21 Outpatient R VARUN HART [facility] [id number] Univers 11:20:00 11:20:00 ATAVARUN NAVA ity of [facility] 2021-05-20 2021-05-20 Orders Doctor GENEVA 1.2.840.114 [id number] Univers 00:00:00 00:00:00 Only Unassigned, HAKAN 350.1.13.10 ity of [place] HOSPITAL 4.2.7.2.686 [place] [phone] [address] 2021-04-16 2021-04-16 Orders Doctor GENEVA 1.2.840.114 [id number] Univers 00:00:00 00:00:00 Only Unassigned, HAKAN 350.1.13.10 ity of [place] HOSPITAL 4.2.7.2.686 [place] [phone] [address] 2021-03-24 2021-03-24 Orders Doctor BEAN 1.2.840.114 [id number] Univers 00:00:00 00:00:00 Only Unassigned, HAKAN 350.1.13.10 ity of [place] HOSPITAL 4.2.7.2.686 [place] [phone] [address] 2021-03-19 2021-03-19 [facility] 1.2.392.313 [id number] Univers 14:16:29 14:37:02 Visit Varun Bolton Den[place] 350.1.13.10 it[place] [phone] [facility] 085 [facility] 2021-03-19 2021-03-19 Outpatient R VARUN HART [facility] [id number] Univers 14:00:00 14:00:[address] [facility] 2021-02-13 2021-02-13 Outpatient R VARUN HART [facility] [id number] Univers 19:30:00 19:30:[address] [facility] 2021-02-13 2021-02-13 [facility] Director 1, [facility] Sleep Lab Bed [facility] 1. 2.840.114 [id number] Univers 13:50:37 16:20:37 Visit Varun Hart [place] 350.1.13. 10 ity of [place] 4.2.7.2.[place] [id number] [facility] 193 Branch 2021-02-13 2021-02-13 Orders Tanner [facility] [id number] [id number] Univers 00:00:00 00:00:00 Only Strahil Che [place] 350.1.13.10 ity of [place] 4.2.7.2.[place] Profess[place] [phone] La dical nal [address] [place] [address] 2021-02-11 2021-02-11 Laboratory Only, [facility] Test [facility] 1.2.840. [id number] Univers 09:53:05 10:08:05 Only Eduardo Rizo [place] [id number] [place] [phone] [facility] [address] 2021-02-11 2021-02-11 Outpatient R [facility] [id number] Univers 09:00:00 09:00:00 ity of [facility] 2021-01-22 2021-01-22 Office Tanner [facility] [id number] Univers 16:31:45 17:01:45 Visit Strahil T [place] 350.1.13.10 [place] [phone] La dical nal 5 [facility] 2021-01-22 2021-01-22 Outpatient R VARUN HART [facility] [id number] Univers 16:30:00 16:30:00 VARUN H[address] it[address]ney [facility] 2021-01-03 2021-01-03 Orders Doctor BEAN 1.2.840.114 [id number] Univers 00:00:00 00:00:00 Only Unassigned, HAKAN 350.1.13.10 ity of [place] [facility] 4.2.7.2.686 [place] as [phone] [address] 2020-12-30 2020-12-30 Laboratory Lab, [facility] 1.2. 840.114 [id number] Univers 11:28:10 11:48:10 Only Charlene Ruiz 350.1.13.10 ity of [place] 4.2.7.2.686 [place] Profess[place] [phone] [address] [facility] 2020-12-30 2020-12-30 Outpatient R SHENA [facility] [id number] Univers 11:20:00 11:20:[address] [facility] 2020-12-27 2020-12-27 Telephone [facility] [id number] Univers 00:00:00 00:00:00 Jolynn [facility] 350.1.13.10 ity of [place] [id number] [place] Profess[place] [phone] [address] [facility] 2020-12-25 2020-12-25 Laboratory Lab, [facility] 1.2. 840.114 [id number] Univers 18:24:44 18:44:44 Only Rosalia Jolynn [facility] 350.1.13.10 ity of [place] 4.2.7.2.686 [place] Professio [phone] [place] dic[address] Office [facility] 2020-12-25 2020-12-25 [facility] [id number] Univers 18:20:00 18:20:00 JOLYNN ity o f [facility] 2020-11-28 2020-11-28 [facility] 1.2.840.114 [id number] Univers 00:00:00 00:00:00 Outreach [place] PRIMARY 350.1.13.10 i ty of [place].2.[place] [phone] Me dical [address] [place] 2020-11-14 2020-11-14 Hospital [facility] [id number] Univers 08:31:01 23:59:00 Encounter [facility] [id number] ity of Surgical 4.2.7.2.686 [place] Specialti [phone] Me dical es 809 [facility] 2020-11-14 2020-11-14 [facility] 1.2.840.114 [id number] Univers 08:07:24 09:12:54 Visit [facility] 350.1.13.10 it y of Surgical 4.2.7.2.686 [place] Specialti [phone] Me dical es 198 [facility] 2020-11-14 2020-11-14 Outpatient R [facility] [id number] Univers 08:15:00 08:15:[address] [facility] 2020-09-12 2020-09-12 Orders Doctor GENEVA 1.2.840.114 [id number] Univers 00:00:00 00:00:00 Only Unassigned, HAKAN 350.1.13.10 ity of [place] HOSPITAL [id number] [place] [phone] [address] 2020-02-01 2020-02-01 Orders Doctor GENEVA 1.2.840.114 [id number] Univers 00:00:00 00:00:00 Only Unassigned, HAKAN 350.1.13.10 ity of [place] HOSPITAL 4.2.7.2.686 [place] [phone] [address] Results Test Description Test Time Test Comments Results Result Comments Source SARS-CoV-2 (COVID-19) RNA [Presence] in Respiratory sp ecimen by 2021-12-01 20:07:20 PEREZ with probe detection Test Item Value Reference Range Interpretation Comme nts SARS-CoV-2 (COVID-19) RNA [Presence] in Respiratory specimen by Not detected PEREZ with probe detection (test code = 98398-3) Whether patient is employed in a healthcare setting (test code = Un known 07767-7) Whether the patient has symptoms related to condition of interest U nknown (test code = 79229-1) Whether the patient was hospitalized for condition of interest Unkn own (test code = 79358-2) Whether the patient was admitted to intensive care unit (ICU) for U nknown condition of interest (test code = 89446-3) Whether patient resides in a congregate care setting (test code = U nknown 61828-6) status (test code = 54329-8) Unknown Date and time of symptom onset (test code = 21497-2) Unknown LOA SABIANISM DEERFIELDComprehensive Metabolic [id number] 11:23:00 Test Item Value Reference Range Interpretation Comments SODIUM (test code = NA) 141.0 mmol/L 136.0-145.0 N Potassium,K (test code = K) 4.1 mmol/L 3.0-5.1 N Chloride (test code = CL) 106 mmol/L 98-107 N Carbon Dioxide (test code = 29 mmol/L 20-31 N CO2) Anion Gap (test code = GAP) 6 mmol/L 5-15 N Blood Urea Nitrogen (test code 19 mg/dL 9-23 N = BUN) Creatinine (test code = CREATT) 0.98 mg/dL 0.55-1.02 N Creatinine Clr Calc Pharmacy 110.68 mL/min (test code = CRCLPHA) Estimated GFR ( Radha > 60 mL/min/1.73m2 (test code = EGFRAA) Estimated GFR (Non Afr Radha > 60 mL/min/1.73m2 (test code = EGFRNAA) BUN/Creatinine Ratio (test code 19 ratio 10-20 N = BCRATIO) Glucose (test code = GLU) 95 mg/dL 74-106 N Osmolality,Calculated (test 293.7 code = OSMOC) Calcium (test code = CA) 9.4 mg/dL 8.3-10.6 N Bilirubin,Total (test code = 0.8 mg/dL 0.2-1.1 N BILIT) Aspartate Amino Transferase 26 U/L 0-34 N (test code = AST) Alanine Aminotransferase (test 20 U/L 10-49 N code = ALT) Total Protein (test code = TP) 7.0 g/dL 5.7-8.2 N Albumin Level (test code = ALB) 4.9 g/dL 3.2-4.8 H Globulin (test code = GLOB) 2.1 mg/dL 2.3-3.5 L Albumin/Globulin Ratio (test 2.3 ratio 0.8-2.0 H code = AGRATIO) Alkaline Phosphatase (test code 77 U/L 46-116 N = ALP) Ethanol [id number] 11:23:00 Test Item Value Reference Range Interpretation Comments Ethanol (test code = ETOH) < 3 mg/dL Complete Blood Count Auto [id number] 11:23:00 Test Item Value Reference Range Interpretation Comments White Blood Count (test code = 7.3 x10 3/uL 4.4-10.5 N WBCT) Red Blood Count (test code = 5.78 x10 6/uL 4.10-5.70 H RBC) Hemoglobin (test code = HGBT) 16.8 g/dL 13.4-17.4 N Hematocrit (test code = HCTT) 50.4 % 38.7-52.0 N Mean Corpuscular Volume (test 87.20 fL 80.00-100.00 N code = MCV) Mean Corpuscular Hemoglobin 29.1 pg 27.0-32.5 N (test code = MCH) Mean Corpuscular HGB Conc 33.30 g/dL 32.00-37.50 N (test code = MCHC) RDW Coefficient of Variation 12.5 % 11.5-14.5 N (test code = RDWCV) Platelet Count (test code = 222.0 x10 3/uL 140.0-440.0 N PLTT) Mean Platelet Volume (test 10.5 fL code = MPV) Immature Granulocytes % (Auto) 0.4 % 0.0-5.0 N (test code = IMMGRAN%) Neutrophils % (Auto) (test 61.2 % 36.0-70.0 N code = NE%) Lymphocytes % (Auto) (test 29.3 % 12.0-44.0 N code = LY%) Monocytes % (Auto) (test code 7.0 % 0.0-11.0 N = MO%) Eosinophils % (Auto) (test 1.8 % 0.0-7.0 N code = EO%) Basophils % (Auto) (test code 0.3 % 0.0-2.0 N = BA%) Immature Granulocytes # (Auto) 0.03 x10 3/uL (test code = IMMGRAN#) Neutrophils # (Auto) (test 4.5 x10 3/uL 1.6-7.4 N code = NE#) Lymphocytes # (Auto) (test 2.13 x10 3/uL 0.50-4.60 N code = LY#) Monocytes # (Auto) (test code 0.51 x10 3/uL 0.00-1.20 N = MO#) Eosinophils # (Auto) (test 0.13 x10 3/uL 0.00-0.74 N code = EO#) Basophils # (Auto) (test code 0.02 x10 3/uL 0.00-0.21 N = BA#) nRBC Abs (test code = NRBCA) 0 nRBC Pct (test code = NRBCP) 0 % Drug Screen,[id number] 11:22:00 Test Item Value Reference Range Interpretation Comments PCP Phencyclidine Screen,Urine (test Negative Negative code = PCPU) Amphetamine Screen,Urine (test code Negative Negative = AMPU) Methadone Screen,Urine (test code = Negative Negative METHU) Opiate Screen,Urine (test code = Positive Negative A UOPIS) Barbituates Screen,Urine (test code Negative Negative = BARBU) Benzodiazepines Screen,Urine (test Negative Negative code = UBENZS) Cocaine Screen,Urine (test code = Negative Negative UCOCS) Cannabinoid Screen,Urine (test code Positive Negative A = UTHCS) Propoxyphene Screen, Urine (test Negative Negative code = UPROP) UA, Urinalysis Rflx [id number] 11:22:00 Test Item Value Reference Range Interpretation Comments Color,Urine (test code = Yellow Yellow UCOL) Clarity,Urine (test code = Clear Clear UCLAR) PH,Urine (test code = 6.5 5.5-8.5 UPH.XX) Specific [place],Urine >= 1.030 1.005-1.030 N (test code = USG) Blood,Urine (test code = Negative cells/uL Negative UBLD) Protein,Urine (test code = Negative mg/dL Negative UPRO) Glucose,Urine (UA) (test 100 mg/dL Negative A code = UGLU) Ketones,Urine (test code = Negative mg/dL Negative UKET) Nitrate,Urine (test code = Negative Negative UNIT) Bilirubin,Urine (test code Negative mg/dL Negative = UBIL) Urobilinogen,Urine (test 1.0 mg/dL Negative code = UURO) Leukocyte Esterase,Urine Negative cells/uL Negative (test code = ULEU) Coronavirus PCR, COVID19 [id number] 10:03:00 Test Item Value Reference Range Interpretation Comments Coronavirus PCR, For use under Emergency COVID19 Rapid (test Use Authorization (EUA) code = SARSCOV2) only. Coronavirus PCR, Reference Range: COVID19 Rapid (test Negative code = BXVFEOG82.1) SARS-CoV-2 PCR Result: Negative by PCR (test code = SARS-CoV-2 PCR Result:) COVID-19 Status: Asymptomatic
[2023-01-02] MEDS ORDERED: MORPHINE 4 MG/ML SYR ONE (12:13)
[2023-01-02 12:14] LABS: Absolute Lymphocytes (CBC) 1.8 K/uL (0.7-4.9); Lymphocytes % 17.3 % (15.3-44.8); MCV 88.7 fL (80-100); MPV 8.6 fL (7.6-11.3); RBC Red Blood Cell Count 6.09 M/uL (4.33-5.43)
[2023-01-02] MEDS ORDERED: ONDANSETRON 4 MG/2 ML VIAL ONE (12:14)
[2023-01-02] MEDS ORDERED: NA CHLORIDE 0.9% 1,000 ML ONE (12:14)
[2023-01-02 12:19] LABS: Protime INR 1.01
[2023-01-02 13:04] LABS: Albumin 3.8 g/dL (3.4-5.0); Bilirubin Total 1.3 mg/dL (0.2-1.0); Potassium 4.1 mEq/L (3.5-5.1); Protein, Total 7.3 g/dL (6.4-8.2)
--- NOTE | 2023-01-02 13:11 | RAD REPORT ---
EXAM DESCRIPTION: CTAbdomen Pelvis W Contrast - 01/02/2023 12:53 pm CLINICAL HISTORY: rectal pain COMPARISON: CT 12/18/2016 TECHNIQUE: CT of the abdomen and pelvis was performed. All CT scans are performed using dose optimization technique as appropriate and may include automated exposure control or mA/KV adjustment according to patient size. FINDINGS: Lower chest: No acute abnormality. Liver: No acute abnormality or suspicious lesions. Biliary: No biliary ductal dilatation. Stomach: No significant focal abnormality. Duodenum: No significant focal abnormality. Pancreas: No significant abnormality. Spleen: No significant abnormality. Adrenal: No suspicious lesions. Kidney/ureter: No hydronephrosis. No renal calculi. Retroperitoneum: No retroperitoneal adenopathy. Vascular: No aneurysm. Bowel: Small low-density cystic structure in the region of the anus measures 11 millimeters. There is some fluid ventral to the anus as well.. Diverticulosis. No evidence acute diverticulitis. Peritoneum: No ascites or free air. Prior ventral hernia repair. Bladder: Grossly unremarkable. Reproductive: No adnexal masses. Bones: No acute fracture. Other: n/a IMPRESSION: Small fluid collection and surrounding fluid at the anus may represent a small perianal abscess.
[2023-01-02 13:48] LABS: Urine Bacteria <20 /HPF (<20); Urine Bilirubin NEGATIVE (Negative); Urine Blood Negative (Negative); Urine Clarity Clear (Clear); Urine Color Yellow (Yellow); Urine Glucose NEGATIVE (Negative); Urine Mucus Slight /HPF (None Seen); Urine Protein TRACE (Negative); Urine RBC <5 /HPF (None Seen); Urine Urobilinogen 1+ (Normal)
[2023-01-02] MEDS ORDERED: FENTANYL CITR 100 MCG/2 ML ONE (14:27)
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
[2023-01-02] MEDS ORDERED: PIPERACIL/TAZO 3.375 GM VIAL IV ONE (15:01)
[2023-01-02] MEDS ORDERED: NA CHLORIDE 0.9% 100 ML ONE (15:01)
[2023-01-02] MEDS ORDERED: ACETAMINOPHEN 500 MG TAB PO PRN (15:50)
--- NOTE | 2023-01-02 15:52 | P.HP ---
Certification for Inpatient Patient admitted to: Inpatient With expected LOS: >2 Midnights Practitioner: I am a practitioner with admitting privileges, knowledge of patient current condition, hospital course, and medical plan of care. Services: Services provided to patient in accordance with Admission requirements found in Title 42 Section 412.3 of the Code of Federal Regulations Patient History Date of Service: 01/02/23 Reason for admission: Perianal abscess History of Present Illness: 47-year-old gentleman with a past medical history of hypertension, hypothyroidism undergoing work-up for Crohn's disease, recent hemorrhoid surgery, recent diagnosis of acute prostatitis presented to the emergency department due to perianal pain. Patient reports severe perianal pain and a feeling of lump in his anal area. He states that pain is so severe is unable to walk. He took only 1 dose of the Bactrim prescribed for acute prostatitis. CT abdomen pelvis done in the ED report small fluid collection and surrounding fluid at the anus may represent a small perianal abscess. No leukocytosis, no fever. General surgery Dr. Addison is contacted who recommended admission to the hospitalist service for surgery tomorrow. Allergies No Known Drug Allergies Allergy (Verified 04/25/21 15:56) Unknown Home Medications: Levothyroxine [Synthroid*] 10 mg PO DAILY 01/25/18 Testost Cypionate [Depo-Testosterone] 200 mg IM ONCE 06/15/18 Pantoprazole [Protonix Tab*] 40 mg PO DAILY 04/25/21 Acetaminophen with Codeine [Tylenol with Codeine #4 Tablet] 1 each PO PRN PRN #30 04/29/21 Ondansetron [Zofran] 4 mg PO Q4H PRN #10 tab 04/29/21 Sulfamethoxazole/Trimethoprim [Bactrim Ds Tablet] 1 each PO BID #10 tablet 04/29/21 - Past Medical/Surgical History Diabetic: Yes -: Adult attention deficit disorder -: Tobacco abuse -: Hypothyroidism -: Hypertension -: Left hand surgery -: Right ACL repair -: Umbilical hernia repair -: Nerve blocks to the back - Family History Father -: Heart disease, Diabetes, Cancer, Other (see notes) (Crohn's disease, colon cancer.) - Social History Alcohol use: No CD- Drugs: No Caffeine use: Yes Physical Examination - Physical Exam General: Alert, In no apparent distress, Oriented x3 HEENT: Atraumatic, Mucous membr. moist/pink, Sclerae nonicteric Neck: Supple, JVD not distended Respiratory: Clear to auscultation bilaterally, Normal air movement Cardiovascular: No edema, Regular rate/rhythm, Normal S1 S2 Gastrointestinal: Normal bowel sounds, Soft and benign, Non-distended, No tenderness, Other (tender swelling-posterior aspect of anus.) Musculoskeletal: No swelling, No tenderness Integumentary: No rashes, No cyanosis Neurological: Normal speech, Normal strength at 5/5 x4 extr, Cranial nerves 3-12 intact Lymphatics: No axilla or inguinal lymphadenopathy - Studies Laboratory Data (last 24 hrs) 01/02/23 12:30: Sodium 136, Potassium 4.1, BUN 20 H, Creatinine 1.05, Glucose 112 H, Total Bilirubin 1.3 H, AST 12 L, ALT 15 L, Alkaline Phosphatase 66, Lipase 21 01/02/23 12:00: PT 11.1, INR 1.01 01/02/23 12:00: WBC 10.50, Hgb 18.1 H, Hct 54.0 H, Plt Count 230 Assessment and Plan - Problems (Diagnosis) (1) Perianal abscess Current Visit: Yes Status: Acute (2) Hypothyroidism Current Visit: Yes Status: Acute (3) Hypertension Current Visit: Yes Status: Acute - Plan Patient reports suspected diagnosis of Crohn's disease. He states that he just had colonic biopsy done a few weeks ago, Status post hemorrhoid surgery. Admit patient to the medical floor Hydrate with IV normal saline Start IV Zosyn Pain management as needed Consulted general surgery. Dr. Ruth is planning surgery tomorrow. Resume home medications for hypertension and hypothyroidism. - Advance Directives Does patient have a Living Will: No Does patient have a Durable POA for Healthcare: No
[2023-01-02] MEDS: ONDANSETRON 4 MG/2 ML VIAL IV PRN (16:00)
[2023-01-02] MEDS: HYDROMORPHONE HCL 2 MG/ML inj IV PRN ×3 (16:00→23:56)
[2023-01-02] MEDS: NA CHLORIDE 0.9% 1,000 ML IV SCH (16:48)
[2023-01-02 16:51] VITALS: BMI 29.9
[2023-01-02] MEDS: PIPER TAZO 3.375 GM in NA CHLORIDE 0.9% 100 ML IV SCH (18:05)
[2023-01-03] MEDS: NA CHLORIDE 0.9% 1,000 ML IV SCH ×3 (02:14→22:00)
[2023-01-03] MEDS: PIPER TAZO 3.375 GM in NA CHLORIDE 0.9% 100 ML IV SCH ×3 (02:15→16:41)
[2023-01-03 03:49] LABS: Absolute Lymphocytes (CBC) 1.4 K/uL (0.7-4.9); Hematocrit 48.9 % (39.6-49.0); Lymphocytes % 18.1 % (15.3-44.8); MCV 90.5 fL (80-100); MPV 8.6 fL (7.6-11.3)
[2023-01-03 03:51] LABS: Protime INR 1.01
[2023-01-03 04:07] LABS: Magnesium 2.3 mg/dL (1.6-2.4); Phosphorus 4.4 mg/dL (2.5-4.9); Potassium 3.9 mEq/L (3.5-5.1)
[2023-01-03] MEDS: HYDROMORPHONE HCL 2 MG/ML inj IV PRN ×2 (05:32→18:40)
[2023-01-03] MEDS: ONDANSETRON 4 MG/2 ML VIAL IV PRN ×2 (06:30→18:40)
[2023-01-03] MEDS ORDERED: MORPHINE 2 MG/ML SYR IV PRN (08:58)
[2023-01-03] MEDS ORDERED: POTASSIUM CL SA 10 MEQ TAB PO ONE (09:00)
--- NOTE | 2023-01-03 11:16 | CON ---
Date of Consultation: 01/03/2023 Diagnosis: Perianal abscess. History Of Present Illness: This is the case of a 47-year-old patient with history of hypertension, hypothyroidism, who had a hemorrhoidal banding by GI doctor recently and developed perianal abscess, and the patient was admitted for hospital for IV antibiotics and surgical consult was obtained for dr brown of perianal abscess. Allergies: NONE. Medications: Include Synthroid, Protonix, Zofran, Tylenol with Codeine, and Bactrim. Past Medical History: Includes ADD, hypothyroidism, hypertension. Past Surgical History: Includes history in the past, umbilical hernia repair that is how we know him , but he recently has a hemorrhoidal banding by the consumer safety officer, Dr. Aragon also about a wee k ago, left hand surgery in the past and nerve block to the back due to previous surgeries. Family History: Heart disease, diabetes, Crohn disease. In fact, the patient has been worked up for rule out Crohn disease at this moment. Social History: He does not smoke. He does not drink alcohol. Review of Systems: Perianal tenderness and fevers and malaise. No dysuria, hematuria, hematochezia, or melena. The pat ient understands he has prostate enlargement in the past based on the previous imaging. Physical Examination: General: The patient is awake, alert. HEENT: Pupils are equal and reactive. Anicteric. Neck: Supple. Chest: Clear. Heart: S1, S2. Abdomen: Soft and depressible. No guarding or rebound or peritoneal signs. Perianal area is very t samson. There was a lump, bulging, and fluctuance present in that region and that is limitation of th e exam at bedside. He does not let us to touch it. Extremities: Good capillary refill. Laboratory Data: Blood work shows WBC count of 10.5 with hemoglobin of 18.1, neutrophils 75.1. INR is 1.01. Potassium 4.1, creatinine is 1.05, total bilirubin of 1, alkaline phosphatase of 66. CAT s can of the abdomen and pelvis interpreted by Dr. Weathers as a perianal abscess. Assessment: It is a 47-year-old patient with perianal abscess, recently has intervention on the hemo rrhoids by the consumer safety officer. Since then, he has been having some pain, but then this time deve loped into a bulging and fluctuance consistent with an abscess. The benefits, alternatives, and risk s of EUA, anoscopy, rigid proctoscopy, possible incision and drainage of perianal abscess fully expla ined, which include, but not limited to infection, bleeding, damage to adjacent structures, anesthesi a complication, anal stricture, anal incontinence, AL, and even . He also understands this may not relieve any symptoms. He might need more than one surgical intervention. The OR was called. Th e patient was started on antibiotics. The patient was advised to follow up with the gastroenterologi st as an outpatient. ANIVAL/PRIYANKA Voice ID: [id number] Report ID: [id number]
[2023-01-03] MEDS ORDERED: BUPIVACAINE 0.5% PF 10 ML VIAL ONE (11:17)
[2023-01-03] MEDS ORDERED: SUCCINYLCHOLINE 20 MG/ML (10 ML) IV ONE (11:19)
[2023-01-03] MEDS ORDERED: FENTANYL CITR 100 MCG/2 ML ONE (11:20)
[2023-01-03] MEDS ORDERED: propofoL 200 MG/20 ML VIAL IV ONE (11:20)
[2023-01-03] MEDS ORDERED: NA CHLORIDE 0.9% 1,000 ML ONE (11:32)
--- NOTE | 2023-01-03 11:33 | P.PN ---
Subjective Date of Service: 01/03/23 Chief Complaint: Perianal abscess Patient is complaining of migraine headaches and photophobia. He is also complaining of perianal pain. He wanted to try morphine instead of hydromorphone but that did not help the pain so he requested we resume hydromorphone. Physical Examination - Vital Signs Temperature: 97.0 F Blood Pressure: 129/66 Pulse: 74 Respirations: 16 Pulse Ox (%): 91 - Studies Laboratory Data (last 24 hrs) 01/02/23 12:30: Sodium 136, Potassium 4.1, BUN 20 H, Creatinine 1.05, Glucose 112 H, Total Bilirubin 1.3 H, AST 12 L, ALT 15 L, Alkaline Phosphatase 66, Lipase 21 01/02/23 12:00: PT 11.1, INR 1.01 01/02/23 12:00: WBC 10.50, Hgb 18.1 H, Hct 54.0 H, Plt Count 230 Assessment And Plan - Current Problems (Diagnosis) (1) Perianal abscess Current Visit: Yes Status: Acute (2) Hypothyroidism Current Visit: Yes Status: Acute (3) Hypertension Current Visit: Yes Status: Acute (4) Migraine Current Visit: Yes Status: Acute - Plan Physical Exam General: Alert, In no apparent distress, Oriented x3 Neck: Supple, JVD not distended Respiratory: Clear to auscultation bilaterally, Normal air movement Cardiovascular: No edema, Regular rate/rhythm, Normal S1 S2 Gastrointestinal: Normal bowel sounds, Soft and benign, Non-distended, No tenderness, Tender swelling-posterior aspect of anus.) Musculoskeletal: No swelling, No tenderness Integumentary: No rashes, No cyanosis Neurological: Normal speech, Normal strength at 5/5 x4 extr, Cranial nerves 3-12 intact Plan: Continue hydration with IV normal saline Continue IV Zosyn Pain management as needed Ordered Imitrex for migraine headache. Patient seen by Dr. Ruth is planning surgery today Continue home medications for hypertension and hypothyroidism.
--- NOTE | 2023-01-03 11:57 | P.BOP ---
Preoperative diagnosis: perianal abscess, perianal tenderness Postoperative diagnosis: same Primary procedure: EUA, anoscopy, rigid proctoscopy, Incision and drainage perianal abscess Estimated blood loss: <5cc Specimen: culture Findings: pus Anesthesia: General Complications: None Drain(s): Other (09/16 iodoform) Transferred to: Recovery Room Condition: Good
[2023-01-03] MEDS ORDERED: SUMATRIPTAN SUCC 6MG/0.5ML VIAL SQ ONE (12:00)
[2023-01-03] MEDS ORDERED: KETOROLAC 30 MG/ML INJ ONE (12:30)
[2023-01-03] MEDS: PANTOPRAZOLE 40MG TABLET PO SCH (16:40)
[2023-01-04] MEDS: PIPER TAZO 3.375 GM in NA CHLORIDE 0.9% 100 ML IV SCH (01:11)
[2023-01-04] MEDS: HYDROMORPHONE HCL 2 MG/ML inj IV PRN (01:12)
[2023-01-04 05:11] LABS: Potassium 4.1 mEq/L (3.5-5.1)
[2023-01-04 06:36] LABS: Magnesium 2.2 mg/dL (1.6-2.4); Phosphorus 3.6 mg/dL (2.5-4.9)
[2023-01-04] MEDS: PANTOPRAZOLE 40MG TABLET PO SCH (06:45)
[2023-01-04] MEDS: NA CHLORIDE 0.9% 1,000 ML IV SCH (08:00)
[2023-01-04 08:20] VITALS: O2SAT 98
[2023-01-04 09:08] VITALS: BP 141/92; TEMP 98.4
--- NOTE | 2023-01-04 09:36 | P.DS ---
Admission Date: 01/02/23 Discharge Date: 01/04/23 Disposition: ROUTINE DISCHARGE Discharge Condition: FAIR Reason for Admission: Perianal abscess - Problems (1) Perianal abscess Status: Acute (2) Hypothyroidism Status: Acute (3) Hypertension Status: Acute (4) Migraine Status: Acute Brief History of Present Illness: 47-year-old gentleman with a past medical history of hypertension, hypothyroidism undergoing work-up for Crohn's disease, recent hemorrhoid surgery, recent diagnosis of acute prostatitis presented to the emergency department due to perianal pain. Patient reported severe perianal pain and a feeling of lump in his anal area. He stated that pain was so severe is unable to walk. He took only 1 dose of the Bactrim prescribed for acute prostatitis. CT abdomen pelvis done in the ED reported small fluid collection and surrounding fluid at the anus may represent a small perianal abscess. No leukocytosis, no fever. General surgery Dr. Addison was contacted who recommended admission to the hospitalist service for surgery. Hospital Course: Patient admitted to the medical floor and started on IV Zosyn and IV hydromorphone for pain. He was seen and evaluated by surgery Dr. Ruth who performed examination under anesthesia, anoscopy, proctoscopy and incision and drainage of the perianal abscess. Patient's pain significantly improved after the procedure. Dr. Ruth has provided patient instructions regarding wound care after surgery and follow-ups. Patient has been informed to follow-up with Dr. Ruth on Wednesday in the office. Patient deemed stable for discharge per Dr. Ruth. He is discharged with Augmentin. Also provided Tylenol No. 3 as needed for pain. Vital Signs/Physical Exam: Temp Pulse Resp BP Pulse Ox 98.4 F 88 17 141/92 H 96 01/04/23 08:00 01/04/23 08:00 01/04/23 08:00 01/04/23 08:00 01/04/23 08:00 General: Alert, In no apparent distress, Oriented x3 HEENT: Mucous membr. moist/pink Neck: JVD not distended Respiratory: Clear to auscultation bilaterally, Normal air movement Cardiovascular: No edema, Regular rate/rhythm, Normal S1 S2 Gastrointestinal: Normal bowel sounds, Soft and benign, Non-distended, Other (Incised perianal abscess wound looks clean, no bleeding or discharge.) Musculoskeletal: No swelling Integumentary: No rashes, No cyanosis Neurological: Normal strength at 5/5 x4 extr Laboratory Data at Discharge: WBC 7.80 thou/uL (4.3-10.9) 01/03/23 03:15 Hgb 16.3 g/dL (13.6-17.9) D 01/03/23 03:15 Hct 48.9 % (39.6-49.0) 01/03/23 03:15 Plt Count 196 thou/uL (152-406) 01/03/23 03:15 PT 11.1 SECONDS (9.5-12.5) 01/03/23 03:15 INR 1.01 01/03/23 03:15 Sodium 137 mEq/L (136-145) 01/04/23 03:52 Potassium 4.1 mEq/L (3.5-5.1) 01/04/23 03:52 BUN 15 mg/dL (7-18) 01/04/23 03:52 Creatinine 1.16 mg/dL (0.70-1.30) 01/04/23 03:52 Glucose 94 mg/dL (74-106) 01/04/23 03:52 Phosphorus 3.6 mg/dL (2.5-4.9) 01/04/23 03:52 Magnesium 2.2 mg/dL (1.6-2.4) 01/04/23 03:52 Total Bilirubin 1.3 mg/dL (0.2-1.0) H 01/02/23 12:30 AST 12 U/L (15-37) L 01/02/23 12:30 ALT 15 U/L (16-61) L 01/02/23 12:30 Alkaline Phosphatase 66 U/L (45-117) 01/02/23 12:30 Lipase 21 U/L (13-75) 01/02/23 12:30 Home Medications: Levothyroxine [Synthroid*] 10 mg PO DAILY 01/25/18 Testost Cypionate [Depo-Testosterone*] 200 mg IM ONCE 06/15/18 Pantoprazole [Protonix Tab*] 40 mg PO DAILY 04/25/21 Ondansetron [Zofran (Odt)*] 4 mg PO Q4H PRN #10 tab 04/29/21 Amox/Clavulanate [Augmentin 875-125 Tab] 875 mg PO BID #10 tab 01/04/23 Codeine/APAP [Tylenol W/Codeine #3 tab] 1 tab PO Q6HP PRN #15 tab 01/04/23 New Medications: Codeine/APAP [Tylenol W/Codeine #3 tab] 1 tab PO Q6HP PRN #15 tab PRN Reason: Pain Amox/Clavulanate [Augmentin 875-125 Tab] 875 mg PO BID #10 tab Diet: ADA Activity: Ad janelle Followup: Brett Ruth MD [ACTIVE - CAN ADMIT] - 1 Week (On Wednesday01/06/2023 in the office.) Time spent managing pt's care (in minutes): 35
--- NOTE | 2023-01-06 10:04 | OP ---
Date of Procedure: 01/06/2023 Surgeon: Brett Ruth MD Preoperative Diagnoses: Perianal abscess, perianal tenderness. Postoperative Diagnosis: Perianal abscess, perianal tenderness. Procedures: Examination under anesthesia, anoscopy, rigid proctoscopy, incision and drainage of moe anal abscess. Estimated Blood Loss: Less than 5 cc. Specimen: Pus. Anesthesia: General plus local. Estimated Blood Loss: Less than 10 mL. Drains: Iodoform quarter of an inch. Indication: This is the case of a male, who comes to us with perianal tenderness, found to have moe anal abscess. The patient has a hemorrhoidal banding about a week and a half ago. The benefits, alt ernatives, and risks of above procedure were fully explained, which include, but not limited to infec tion, bleeding, damage to adjacent structures, anesthesia complication, recurrence, anal stricture, a nal incontinence, PR and even . He also understands this may not relieve any symptoms. He migh t need more than one surgical intervention. He understood, signed a consent. Procedure In Detail: The patient was brought to the operating room, placed in supine position. Anes thesia was done without complication. The patient was placed in lithotomy position with proper prote ction. The area was prepped and draped in the usual sterile fashion followed by rectal examination a fter a time-out was called. After that, we proceeded then to carefully put a rigid proctoscope after rectal examination all the way about to 15 cm. We noticed the abscess to be contained in the perian al region. Anoscope was placed with a window on the side and once again confirmed with the findings. Once we localized the area of an abscess, we proceeded to carefully make an incision in that region after local anesthetic was applied and found a pus pocket, drained pus, cultured it, and opened the loculations. We then packed the area with the iodoform after irrigation of local anesthetic. The pa tient tolerated the procedure well. Area was covered with sterile dressings. The patient was sent t o recovery in stable condition. The patient was advised the importance of removing the packing tomor row, then sitz baths 4 times a day after every bowel movement. The patient was advised to follow obinna meehan my office in a week from now. ANIVAL/PRIYANKA Voice ID: [id number] Report ID: [id number]
== END 2023-01-04 09:24 | disposition home or self-care (01) | DRG 920 ==
LOC: ER 11:19 → 4TH 15:19
PROVIDERS: ADMIT Internal Medicine; ATTEND Internal Medicine
PROC: 0DJD8ZZ Inspection of Lower Intestinal Tract, Via Natural or Artificial Opening Endoscopic (ICD-10-PCS; 2023-01-03)
PROC: 0D9Q0ZX Drainage of Anus, Open Approach, Diagnostic (ICD-10-PCS; principal; 2023-01-03 10:45)
DX: L76.82 Other postprocedural complications of skin and subcutaneous tissue (principal); K61.0 Anal abscess; N41.0 Acute prostatitis; Y83.9 Surgical procedure, unspecified as the cause of abnormal reaction of the patient, or of later complication, without mention of misadventure at the time of the procedure; I10 Essential (primary) hypertension; E03.9 Hypothyroidism, unspecified; G47.33 Obstructive sleep apnea (adult) (pediatric); K21.9 Gastro-esophageal reflux disease without esophagitis; F90.9 Attention-deficit hyperactivity disorder, unspecified type; F43.10 Post-traumatic stress disorder, unspecified; E11.9 Type 2 diabetes mellitus without complications; G43.909 Migraine, unspecified, not intractable, without status migrainosus; Z79.899 Other long term (current) drug therapy; Z82.49 Family history of ischemic heart disease and other diseases of the circulatory system; Z83.3 Family history of diabetes mellitus; Z83.79 Family history of other diseases of the digestive system
CPT/HCPCS: 36415; 74177; 80048; 80053; 81001; 82565; 82947; 83605; 83690; 83735; 84100; 85025; 85610; 87040; 87070; 87075; 87076; 87077; 87185; 87186; 87205; 96361; 96365; 96375; 99285; J1170; J2270; J2405; J2543; J2704; J3010; J3030; J7030; Q9967

== ENCOUNTER 2023-07-08 09:45 | Emergency (ER) | payer OTHER ==
--- OUTSIDE RECORDS SUMMARY | 2023-07-08 09:49 | XMS REPORT | Continuity of Care Document ---
:1975 Author Organization [facility] t Address [address] [place] [address] Care Team Providers Name Role Phone Jose Juan Marie DO Primary Care Physician Camila Edward Attending Clinician Unavailable MILENA DUFFY Attending Clinician Unavailable MILENA DUFFY Attending Clinician Unavailable Piper Choe RN Attending Clinician Unavailable Only, Paul Vega Test Attending Clinician Unavailable Yari Domingo Attending Clinician YARI LINDSEY Attending Clinician Unavailable Debora Mckinnon MD Attending Clinician Unavailable Lab, Ang - Db Attending Clinician Unavailable DEBORA MCKINNON Attending Clinician Unavailable CAMILA EDWARD Attending Clinician Unavailable Blanca Barnett PT Attending Clinician Unavailable Gisela Keys MD Attending Clinician GISELA KEYS Attending Clinician Unavailable Deric STEELE, Brian Hunter Attending Clinician Unavailable Deric STEELE, Ariana Call Attending Clinician Unavailable Sandy PT, Madelaine T Attending Clinician Unavailable Doctor Unassigned, [place] Attending Clinician Unavailable Wale CARNEY, Alice Attending Clinician ALICE SERRANO Attending Clinician Unavailable Nereida SILVER, Julisa T Attending Clinician Unavailable Mulugeta Teresa DO Attending Clinician Orion CARNEY, Mehnaz Attending Clinician MEHNAZ SHEPPARD Attending Clinician Unavailable Chica Vargas MD Attending Clinician Varun Hart MD Attending Clinician VARUN HART Attending Clinician Unavailable VARUN HART Attending Clinician Unavailable 1, [facility] Sleep Lab Bed Attending Clinician Unavailable Only, Adc Test Attending Clinician Unavailable Darrius HERNANDEZ, Eduardo Attending Clinician Lab, Adc Fam Pob I Attending Clinician Unavailable Carlos Alberto Garay Attending Clinician CARLOS ALBERTO RUIZ Attending Clinician Unavailable Gavin Oneill Attending Clinician GAVIN HUNT Attending Clinician Unavailable Camila Edward Admitting Clinician Unavailable CAMILA EDWARD Admitting Clinician Unavailable Payers Payer Name Policy Type Policy Number Effective Date Expiration Date S lynda DANILO/LAYLA [id number] 2020 MEDICARE ADVANTAGE 00:00:00 Problems Condition Condition Condition Status Onset Resolution Last Treating Co mments Source Name Details Category Date Date Treatment Clinician Date Myelopathy Myelopathy Disease Active M ethodi concurrent concurrent 3- st with and with and 00:00: Hospit a due to due to 00 l spinal spinal stenosis stenosis of of cervical cervical region region S/P S/P Disease Active Methodi cervical cervical 3-25 st spinal spinal 00:00: Hospita fusion fusion 00 l Chronic Chronic Disease Active Univers pain of pain of 2-16 ity of both both 00:00: [place] shoulders shoulders 00 Medi millie Branch Chronic Chronic Disease Active 2022-0 Univers pain of pain of 2-16 [place] of [place] knees [place] Upper Upper Disease Active Univers extremity extremity 2-16 ity of weakness weakness 00:00: [place] 00 Medical Branch Weakness Weakness Disease Active Unive rs of both of both 2-16 ity of lower lower 00:00: [place] extremitie extremitie 00 Me dical s s Branch Chronic Chronic Disease Active Univers pain of pain of 2-16 ity of both both 00:00: [place] shoulders shoulders 00 Medi millie Branch Injury of Injury of Disease Active Overview: Univers tendon of tendon of 3-06 Formattin i ty of long head long head 00:00: [place] of [place] of biceps, of biceps, 00 note Me dical left, left, might be Branch initial initial different encounter encounter from the original. Added automatic ally from request for surgery [id number] Injury of Injury of Disease Active Overview: Univers tendon of tendon of 3-06 Formattin i ty of long head long head 00:00: [place] of [place] of biceps, of biceps, 00 note Me dical left, left, might be Branch initial initial different encounter encounter from the original. Added automatic ally from request for surgery [id number] Allergies, Adverse Reactions, Alerts Allergy Allergy Status Severity Reaction(s) Onset Inactive Treating Comm ents Source Name Type Date Date Clinician No Known DA Active U [facility]ie 8 [place] s 00:00: [facility] 00 dic [facility]osp[facility] l No Known DA Active U [facility] Allergie 8 [place] s 00:00: [place] 00 [facility] Unable DA Active U 2020-09 [facility] to 0-27 Assess 00:00: 00 No Known DA Active U 2020-09 [facility] Drug 0- Allergie 00:00: s 00 No Known DA Active U 2006- [facility] Contrast 04-07 [place] Allergie 00:00: Orthope s 00 dic Hospita l No Known DA Active U 2006- [facility] Drug 04-07 [place] Allergie 00:00: Orthope s 00 dic Hospita l No Known DA Active U 2006- [facility] Food 04-07 [place] Allergie 00:00: Orthope s 00 dic Hospita l No Known DA Active U 2006- [facility] Other 7- [place] Allergie 00:00: Orthope s 00 dic Hospita l No Known DA Active U 2006- [facility] Drug 3-23 [place] Intolera 00:00: Orthope nces 00 dic Hospita l NO KNOWN Drug Active Univers ALLERGIE Class ity of [facility] Family History Family Member Diagnosis Comments Start Date Stop Date Source Natural father Prostate [facility] [place] Natural father Testicular cancer [facility] Natural mother [facility] Social History Social Habit Start Date Stop Date Quantity Comments Source History of tobacco Current smoker [facility] Gender identity Muslim [facility] Sexual orientation [facility] Hospital Exposure to 2022-02-06 2022-02-16 Not sure University SARS-CoV-2 (event) 00:00:00 16:11:00 [facility] Alcohol intake 2021-12-08 2021-12-08 Ex-drinker Muslim 00:00:00 00:00:00 (finding) Hospital History of Social 2021-12-08 2021-12-[address] function 00:00:00 00:00:00 Hospital Tobacco use and 2021-12-05 2021-12-05 Smokeless Muslim exposure 00:00:00 00:00:00 tobacco non-user Hospital Tobacco Comment 2021-12-05 2021-12-05 in high school [employer] [facility] 00:00:00 00:00:00 Hospital Sex Ass[birth year] At [birth year] Muslim 00:00:00 00:00:00 Hospital Smoking Status Start Date Stop Date Source Ex-smoker 2021-12-05 00:00:00 2021-12-05 00:00:00 [facility] Light tobacco smoker 2017-11-18 00:00:00 [facility] Medications Ordered Filled Start Stop Current Ordering Indication Dosage Frequency Signature Comments Components Source Medication Medication Date Date Medication? Clinician (SIG) Name Name UNABLE TO Yes Antibiotic Me thodi FIND 3-[address] 15:22: a day (pt Hospita 02 could not l remember the name) UNABLE TO Yes Antibiotic Me thodi FIND 3-[address] 15:22: a day (pt Hospita 02 could not l remember the name) UNABLE TO Yes Antibiotic Me thodi FIND 3-[address] 15:22: a day (pt Hospita 02 could not l remember the name) UNABLE TO Yes Antibiotic Me thodi FIND 3-[address] 15:22: a day (pt Hospita 02 could not l remember the name) pantoprazol Yes 40mg QD Take 40 mg Methodi e 3-[address] (PROTONIX) 15:22: daily. Hospi ta 40 MG EC 54 l tablet eszopiclone Yes 3mg QD Take 3 mg M ethodi (LUNESTA) 3 3-[address] mg tablet 15:22: [facility]ly. [facility] 54 Take l immediatel y before bedtime topiramate 0 Yes 50mg Q.5D Take 50 mg M [...] 15:22: mouth Hospita 54 every l morning. b complex Yes 1{capsu QD Take 1 Met hodi vitamins 3-26 le} capsule by st capsule 15:22: mouth Hospita 54 daily. l cyanocobala Yes 1000ug Inject Me thodi min 1,000 3-26 1,[address] mcg/mL 15:22: into the Hospita injection 54 shoulder, l thigh, or buttocks once. testosteron Yes 200mg Q7D Inject 200 Methodi e cypionate 3-[address] (DEPOTESTOT 15:22: the Hospit a ERONE 54 shoulder, l CYPIONATE) thigh, or 200 mg/mL buttocks injection once a week. Wednesday pantoprazol 0 Yes 40mg QD Take 40 mg Methodi e 3-[address] (PROTONIX) 15:22: daily. Hospi ta 40 MG EC 54 l tablet eszopiclone Yes 3mg QD Take 3 mg M ethodi (LUNESTA) 3 3-[address] mg tablet 15:22: nightly. [facility] 54 Take l immediatel y before bedtime topiramate 0 Yes 50mg Q.5D Take 50 mg M ethodi (TOPAMAX) 3-[address] 50 MG 15:22: (two) Hospita tablet 54 times a l day. hydroCHLORO 0 Yes 25mg QD Take 25 mg Methodi thiazide 3-[address] (HYDRODIURI 15:22: daily. [facility]) 25 MG 54 l tablet phentermine 0 Yes 37.5mg QD Take 37.5 Methodi 37.5 MG 3-[address] capsule 15:22: mouth Hospita 54 every l morning. b complex Yes 1{capsu QD Take 1 Met hodi vitamins 3-26 le} capsule by st capsule 15:22: mouth Hospita 54 daily. l cyanocobala Yes 1000ug Inject Me thodi min 1,000 3-26 1,[address] mcg/mL 15:22: into the Hospita injection 54 shoulder, l thigh, or buttocks once. testosteron Yes 200mg Q7D Inject 200 Methodi e cypionate 3-[address] (DEPOTESTOT 15:22: the Hospit a ERONE 54 shoulder, l CYPIONATE) thigh, or 200 mg/mL buttocks injection once a week. Wednesday pantoprazol 0 Yes 40mg QD Take 40 mg Methodi e 3-[address] (PROTONIX) 15:22: daily. Hospi ta 40 MG EC 54 l tablet eszopiclone Yes 3mg QD Take 3 mg M ethodi (LUNESTA) 3 3-[address] mg tablet 15:22: nightly. [facility] 54 Take l immediatel y before bedtime topiramate 2021-0 Yes 50mg Q.5D Take 50 mg M ethodi (TOPAMAX) 3-[address] 50 MG 15:22: (two) Hospita tablet 54 times a l day. hydroCHLORO 0 Yes 25mg QD Take 25 mg Methodi thiazide 3-[address] (HYDRODIURI 15:22: daily. [facility]) 25 MG 54 l tablet phentermine 2022-0 Yes 37.5mg QD Take 37.5 Methodi 37.5 MG 3-[address] capsule 15:22: mouth Hospita 54 every l morning. b complex Yes 1{capsu QD Take 1 Met hodi vitamins 3-26 le} capsule by st capsule 15:22: mouth Hospita 54 daily. l cyanocobala 0 Yes 1000ug Inject Me thodi min 1,000 3-26 1,[address] mcg/mL 15:22: into the Hospita injection 54 shoulder, l thigh, or buttocks once. testosteron Yes 200mg Q7D Inject 200 Methodi e cypionate 3-[address] (DEPOTESTOT 15:22: the Hospit a ERONE 54 shoulder, l CYPIONATE) thigh, or 200 mg/mL buttocks injection once a week. Wednesday b complex Yes 1{capsu QD Take 1 Met hodi vitamins 3-26 le} capsule by st capsule 15:22: mouth Hospita 54 daily. l cyanocobala Yes 1000ug Inject Me thodi min 1,000 [...] 40 MG EC 54 l tablet eszopiclone 0 Yes 3mg QD Take 3 mg M ethodi (LUNESTA) 3 3-[address] mg tablet 15:22: nightly. [facility] Take l immediatel y before bedtime topiramate 2021-0 Yes 50mg Q.5D Take 50 mg M ethodi (TOPAMAX) 3-[address] 50 MG 15:22: (two) Hospita tablet 54 times a l day. hydroCHLORO 0 Yes 25mg QD Take 25 mg Methodi thiazide 3-[address] (HYDRODIURI 15:22: daily. [facility]) 25 MG 54 l tablet phentermine Yes 37.5mg QD Take 37.5 Methodi 37.5 MG 3-[address] capsule 15:22: mouth Hospita 54 every l morning. azelastine 2020-09 Yes [id number] 1{spray Use 1 Univers 137 mcg 0-20 } [place] in ity of (0.1 %) 00:00: each [place] nasal spray 00 nostril 2 Med ical (two) Branch times daily. Use in each nostril as directed fluticasone 2020-09 Yes [id number] 1{spray Use 1 Univers propionate 0-20 } [place] in ity o f 50 00:00: each [place] mcg/actuati 00 nostril Medic al on nasal daily. Branch spray cetirizine 2020-09 Yes [id number] 10mg Take 1 Univers (ZYRTEC) 10 0-20 tablet by ity of mg tablet 00:00: mouth [place] 00 daily. Medical Branch guaiFENesin 2020-09 Yes [id number] 400mg Take 1 Univers 400 mg 0-20 tablet by ity of tablet 00:00: mouth [place] 00 every 4 Medical (four) Branch hours as needed for Cough. benzonatate 2020-09 Yes [id number] 200mg Take 2 Univers 100 mg 0-20 capsules ity of capsule 00:00: [place] mouth 2 [place] 00 (two) Medical times Branch daily as needed for Cough. azelastine 2020-09 Yes [id number] 1{spray Use 1 Univers 137 mcg 0-20 } [place] in ity of (0.1 %) 00:00: each [place] nasal spray 00 nostril 2 Med ical (two) Branch times daily. Use in each nostril as directed fluticasone 2020-09 Yes [id number] 1{spray Use 1 Univers propionate 0-20 } [place] in ity o f 50 00:00: each [place] mcg/actuati 00 nostril Medic al on nasal daily. Branch spray cetirizine 2020-09 Yes [id number] 10mg Take 1 Univers (ZYRTEC) 10 0-20 tablet by ity of mg tablet 00:00: mouth [place] 00 daily. Medical Branch guaiFENesin 2020-09 Yes [id number] 400mg Take 1 Univers 400 mg 0-20 tablet by ity of tablet 00:00: mouth [place] 00 every 4 Medical (four) Branch hours as needed for Cough. benzonatate 2020-09 Yes [id number] 200mg Take 2 Univers 100 mg 0-20 capsules ity of capsule 00:00: [place] mouth 2 [place] 00 (two) Medical times Branch daily as needed for Cough. azelastine 2020-09 Yes [id number] 1{spray Use 1 Univers 137 mcg 0-20 } [place] in ity of (0.1 %) 00:00: each [place] nasal spray 00 nostril 2 Med ical (two) Branch times daily. Use in each nostril as directed fluticasone 2020-09 Yes [id number] 1{spray Use 1 Univers propionate 0-20 } [place] in ity o f 50 00:00: each [place] mcg/actuati 00 nostril Medic al on nasal daily. Branch spray cetirizine 2020-09 Yes [id number] 10mg Take 1 Univers (ZYRTEC) 10 0-20 tablet by ity of mg tablet 00:00: mouth [place] 00 daily. Medical Branch guaiFENesin 2020-09 Yes [id number] 400mg Take 1 Univers 400 mg 0-20 tablet by ity of tablet 00:00: mouth [place] 00 every 4 Medical (four) Branch hours as needed for Cough. benzonatate 2020-09 Yes [id number] 200mg Take 2 Univers 100 mg 0-20 capsules ity of capsule 00:00: [place] mouth 2 [place] 00 (two) Medical times Branch daily as needed for Cough. azelastine 2020-09 Yes [id number] 1{spray Use 1 Univers 137 mcg 0-20 } [place] in ity of (0.1 %) 00:00: each [place] nasal spray 00 nostril 2 Med ical (two) Branch times daily. Use in each nostril as directed fluticasone 2020-09 Yes [id number] 1{spray Use 1 Univers propionate 0-20 } [place] in ity o f 50 00:00: each [place] mcg/actuati 00 nostril Medic al on nasal daily. Branch spray cetirizine 2020-09 Yes [id number] 10mg Take 1 Univers (ZYRTEC) 10 0-20 tablet by ity of mg tablet 00:00: mouth [place] 00 daily. Medical Branch guaiFENesin 2020-09 Yes [id number] 400mg Take 1 Univers 400 mg 0-20 tablet by ity of tablet 00:00: mouth [place] 00 every 4 Medical (four) Branch hours as needed for Cough. benzonatate 2020-09 Yes [id number] 200mg Take 2 Univers 100 mg 0-20 capsules ity of capsule 00:00: [place] mouth 2 [place] 00 (two) Medical times Branch daily as needed for Cough. azelastine 2020-09 Yes [id number] 1{spray Use 1 Univers 137 mcg 0-20 } [place] in ity of (0.1 %) 00:00: each [place] nasal spray 00 nostril 2 Med ical (two) Branch times daily. Use in each nostril as directed fluticasone 2020-09 Yes [id number] 1{spray Use 1 Univers propionate 0-20 } [place] in ity o f 50 00:00: each [place] mcg/actuati 00 nostril Medic al on nasal daily. Branch spray cetirizine 2020-09 Yes [id number] 10mg Take 1 Univers (ZYRTEC) 10 0-20 tablet by ity of mg tablet 00:00: mouth [place] 00 daily. Medical Branch guaiFENesin 2020-09 Yes [id number] 400mg Take 1 Univers 400 mg 0-20 tablet by ity of tablet 00:00: mouth [place] 00 every 4 Medical (four) Branch hours as needed for Cough. benzonatate 2020-09 Yes [id number] 200mg Take 2 Univers 100 mg 0-20 [...] MOUTH Medical AT Branch BEDTIME. diazePAM 10 2017-0 Yes TAKE ONE Un [place] mg tablet 4-14 (1) ity of 00:00: TABLET(S) [place] 00 BY MOUTH Medical AT Branch BEDTIME. metFORMIN Yes TAKE ONE Univ ers 500 [...] MOUTH Medical TWICE A Branch DAY. hydroCHLORO 0 Yes TAKE ONE Un [place] thiazide 25 [...] TAKE ONE Un [place] 2 mg tablet 3- (1) ity of 00:00: TABLET(S) [place] 00 BY MOUTH Medical TWICE A Branch DAY. hydroCHLORO 2017- Yes TAKE ONE Un [place] thiazide 25 3- (1) ity of mg tablet 00:00: TABLET(S) [place] as 00 BY MOUTH Medical ONCE A Branch DAY. levothyroxi Yes TAKE ONE Un [place] ne 50 mcg 2-23 (1) ity of tablet 00:00: TABLET(S) [place] 00 BY MOUTH Medical ONCE A Branch DAY. levothyroxi Yes TAKE ONE Un [place] ne 50 mcg 2-23 (1) ity of tablet 00:00: TABLET(S) [place] 00 BY MOUTH Medical ONCE A Branch DAY. levothyroxi Yes TAKE ONE Un [place] ne 50 mcg 2-23 (1) ity of tablet 00:00: TABLET(S) [place] 00 BY MOUTH Medical ONCE A Branch DAY. levothyroxi Yes TAKE ONE Un [place] ne 50 [...] Medical EVERY SIX Branch HOURS. traMADOL 50 2018-0 Yes TAKE ONE Un [place] mg tablet [...] 30 MINUTES Branch PRIOR TO SEX. sildenafil 0 Yes TAKE ONE Uni vers 100 mg 1-07 (1) ity of tablet 00:00: TABLET(S) [place] 00 BY MOUTH Medical 30 MINUTES Branch PRIOR TO SEX. sildenafil 0 Yes TAKE ONE Uni vers 100 mg 1-07 (1) ity of tablet 00:00: TABLET(S) [place] 00 BY MOUTH Medical 30 MINUTES Branch PRIOR TO SEX. sildenafil 0 Yes TAKE ONE Uni vers 100 mg 1-07 (1) ity of tablet 00:00: TABLET(S) [place] 00 BY MOUTH Medical 30 MINUTES Branch PRIOR TO SEX. sildenafil 0 Yes TAKE ONE Uni vers 100 mg 1-07 (1) ity of tablet 00:00: TABLET(S) [place] 00 BY MOUTH Medical 30 MINUTES Branch PRIOR TO SEX. Vital Signs Vital Name Observation Time Observation Value Comments Source Systolic blood 2022-01-05 17:13:00 129 mm[Hg] [facility] pressure [facility] Diastolic blood 2022-01-05 17:13:00 75 mm[Hg] [place] [facility] Heart rate 2022-01-05 17:13:00 104 /min General acute hospital Body weight 2022-01-05 17:13:00 111.585 kg General acute hospital BMI 2022-01-05 17:13:00 35.30 kg/m2 General acute hospital Oxygen saturation 2022-01-05 17:13:00 95 /min [facility] in Arterial blood Medical Br anch by Pulse oximetry Procedures This patient has no known procedures. Plan of Care Planned Activity Planned Date Details Comments Source Future Scheduled 2023-06-27 [facility] Test 10:07:15 malignant neoplasm of colon (procedure) [code = 566790545] Future Scheduled 2023-06-27 [facility] Test 10:07:15 malignant neoplasm of colon (procedure) [code = 326450756] Future Scheduled 2023-06-27 [facility] Test 10:07:15 malignant neoplasm of colon (procedure) [code = 928296908] Future Scheduled 2023-06-27 COVID-19 VACCINE (#1) [facility] Test 10:07:15 [code = COVID-19 VACCINE (#1)] Future Scheduled 2023-06-27 Hepatitis C screening [facility] Test 10:07:15 (procedure) [code = 352969126] Future Scheduled 2023-06-27 [facility] Test 10:07:15 malignant neoplasm of colon (procedure) [code = 070772671] Future Scheduled 2023-06-27 [facility] Test 10:07:15 malignant neoplasm of colon (procedure) [code = 062066314] Future Scheduled 2023-06-27 INFLUENZA VACCINE Method [facility] Test 10:07:15 (#1) [code = INFLUENZA VACCINE (#1)] Future Scheduled 2023-06-27 RSV VACCINES > 60 YR Met [facility] Test 10:07:15 (1 - 1-dose 60+ series) [code = RSV VACCINES > 60 YR (1 - 1-dose 60+ series)] Future Scheduled 2023-06-27 Screening for [facility] Test 10:07:15 malignant neoplasm of colon (procedure) [code = 699664977] Future Scheduled 2023-06-27 [facility] Test 10:07:15 malignant neoplasm of colon (procedure) [code = 082776359] Future Scheduled 2023-06-27 Screening for [facility] Test 10:07:15 malignant neoplasm of colon (procedure) [code = 651472956] Future Scheduled 2023-06-27 COVID-19 VACCINE (#1) [facility] Test 10:07:15 [code = COVID-19 VACCINE (#1)] Future Scheduled 2023-06-27 [facility] 10:07:15 (procedure) [code = 653572845] Future Scheduled 2023-06-27 [facility] Test 10:07:15 malignant neoplasm of colon (procedure) [code = 994696297] Future Scheduled 2023-06-27 [facility] Test 10:07:15 malignant neoplasm of colon (procedure) [code = 593828560] Future Scheduled 2023-06-27 INFLUENZA VACCINE Method ist Hospital Test 10:07:15 (#1) [code = INFLUENZA VACCINE (#1)] Future Scheduled 2023-06-27 RSV VACCINES > 60 YR [facility] Test 10:07:15 (1 - 1-dose 60+ series) [code = RSV VACCINES > 60 YR (1 - 1-dose 60+ series)] Future Scheduled 2023-05-11 [facility] Test 11:18:33 malignant neoplasm of colon (procedure) [code = 861886921] Future Scheduled 2023-05-11 [facility] Test 11:18:33 malignant neoplasm of colon (procedure) [code = 195002622] Future Scheduled 2023-05-11 [facility] Test 11:18:33 malignant neoplasm of colon (procedure) [code = 154472505] Future Scheduled 2023-05-11 COVID[facility]19 [facility] 11:18:33 [code = COVID-19 VACCINE (#1)] Future Scheduled 2023-05-11 [facility] Test 11:18:33 (procedure) [code = 814734586] Future Scheduled 2023-05-11 [facility] Test 11:18:33 malignant neoplasm of colon (procedure) [code = 256789590] Future Scheduled 2023-05-11 [facility] Test 11:18:33 malignant neoplasm of colon (procedure) [code = 584331932] Future Scheduled 2023-05-11 INFLUENZA VACCINE Method ist Hospital Test 11:18:33 (#1) [code = INFLUENZA VACCINE (#1)] Future Scheduled 2022-12-15 COVID-19 VACCINE (#1) [facility] Test 04:46:45 [code = COVID-19 VACCINE (#1)] Future Scheduled 2022-12-15 Hepatitis C screening [facility] Test 04:46:45 (procedure) [code = 147627843] Future Scheduled 2022-12-15 COLONOSCOPY SCREENING [facility] Test 04:46:45 [code = COLONOSCOPY SCREENING] Future Scheduled 2022-12-15 INFLUENZA VACCINE Method ist Hospital Test 04:46:45 [code = INFLUENZA VACCINE] Encounters Start End Encounter Admission Attending Care Care Encounter Source Date/Time Date/Time Type Type Clinicians Facility Department ID 2021-07-09 Inpatient [facility] [id number] [facility] 10:25:00 23 2023-05-12 2023-05-13 Inpatient EL KURTIS EdwardTO SURG [id number] [facility] 08:18:00 13:18:00 Camila Steven [place] [facility] 2023-05-07 2023-05-07 Outpatient ERIC Edward LABO [id number] [facility] 19:08:00 19:08:00 Camila Moreno [facility] 2022-07-13 2022-07-13 Outpatient R MILENA DUFFY [facility] [id number] Univers 09:00:00 09:00:00 MILENA DUFFY itbrittney [facility] 2022-02-17 2022-02-17 Telephone GENEVA Choe [id number] Univers 00:00:00 00:00:00 Piper MCCLENDON [id number] it y of [facility] [id number] [place] as [id number] [address] 2022-02-16 2022-02-16 Laboratory Only, Ang Db Test [facility] 1.2.8 [id number] [id number] Univers 16:15:00 16:30:00 Only Yari Lindsey [facility] [id number] ity [facility] [id number] [place] as TIAGO?BLEA [id number] [address] MEDICAL OFFICE BUILDING 2022-02-16 2022-02-16 Outpatient R RENETTA [facility] [id number] Univers 16:15:00 16:15:00 YARI villegas o f [facility] 2022-01-15 2022-01-15 Patient Ino [facility] [id number] Univers 00:00:00 00:00:00 Secure Msg Debora [employer] [id number] ity of [place] 4.2.7.2.686 [place] as TIAGO?BLEA [id number] Wy howard BARRON [address] [facility] OFFICE [facility] 2022-01-05 2022-01-05 Business Support Associate Lab, Ang - Db [facility] [id number] Univers 12:45:00 13:00:00 [facility] [id number] [facility] [id number] [place] TIAGO?BLEA [id number] Wy howard BARRON [address] [facility] OFFICE [facility] 2022-01-05 2022-01-05 [id number] Univers 12:45:00 12:45:00 [facility] 2022-01-05 2022-01-05 [facility] [id number] Univers 12:00:00 12:30:00 Visit [facility] [id number] it y of [place] [id number] [place] TIAGO?BLEA [id number] [facility] [facility] 2022-01-05 2022-01-05 [id number] Univers 12:00:00 12:00:00 [facility] 2021-12-05 2021-12-06 Inpatient ROESER, [facility] 021 [id number] [address] [place] 00:00:00 00:00:00 CAMILA Rincon [facility] 2021-12-04 2021-12-04 Outpatient ROESER, [facility] [id number] [place] 00:00:00 00:00:00 CAMILA Charles [facility] 2021-12-04 2021-12-04 Outpatient ROESER, [facility] [id number] [place] 00:00:00 00:00:00 CAMILA 154 Method i 2021-12-01 2021-12-01 Outpatient WAGNER [facility] [id number] [place] 00:00:00 00:00:00 CAMILA 467 Method i 2021-11-24 2021-11-24 Ancillary Júnior Blanca Kumar [facility] 1 .2.840.114 [id number] Univers 09:30:00 10:30:34 Visit Gisela Keys 350.1.13.10 ity of [place] [phone] Wy dical NAL 179 [employer] 2021-11-20 2021-11-20 Outpatient R LUDMILA [facility] [id number] Univers 08:45:00 08:45:00 [facility] 2021-11-20 2021-11-20 Outpatient R LUDMILA [facility] [id number] Univers 08:45:00 08:45:00 [facility] 2021-11-13 2021-11-13 Ancillary Brian Leos [facility] 1.2.840. 114 [id number] Univers 08:00:00 08:45:00 Visit Gisela Keys 350.1.13.10 ity [facility] [place] [phone] Wy dical NAL 179 [employer] 2021-11-06 2021-11-06 Outpatient R LUDMILA [facility] [id number] Univers 08:45:00 09:46:07 [facility] 2021-11-06 2021-11-06 Ancillary Ariana Leos [facility] 1.2.840 .114 [id number] Univers 08:45:00 09:30:00 Visit Gisela Keys 350.1.13.10 it[place] [phone] Wy dical NAL 179 [employer] 2021-11-05 2021-11-05 Ancillary Ariana Leos [facility] 1.2.840 .114 [id number] Univers 08:45:00 09:47:11 Visit Gisela Keys 350.1.13.10 ity of [facility] [place] [phone] Wy dical NAL 179 [employer] 2021-10-29 2021-10-29 Outpatient R LUDMILA [facility] [id number] Univers 08:00:00 08:57:53 GISELA ity of [facility] 2021-10-29 2021-10-29 Ancillary Madelaine Delgado [facility] 1.2.84 0.114 [id number] Univers 08:00:00 08:57:53 Visit Gisela Keys 350.1.13.10 ity of [facility] [place] [phone] Wy dical NAL 179 [employer] 2021-10-15 2021-10-15 Orders Doctor GENEVA 1.2.840.114 [id number] Univers 00:00:00 00:00:00 Only Unassigned, HAKAN 350.1.13.10 ity of [place] [facility] 4.2.7.2.686 [place] [phone] [address] 2021-10-08 2021-10-08 Telephone Ludmila [facility] 1.2.840.114 [id number] Univers 00:00:00 00:00:00 Gisela Campbell HEALTH 350.1.13.10 it y of [facility] 4.2.7.2.686 [place] TIAGO?BLEA [phone] [facility]ON 198 [facility] OFFICE [facility] 2021-09-24 2021-09-24 Laboratory Only, Ang Db Test [facility] 1.2.8 40.114 [id number] Univers 20:30:00 20:45:00 Only Alice Serrano HEALTH 350.1.13.10 ity of [facility] 4.2.7.2.686 [place] TIAGO?BLEA [phone] [facility] 370 [facility] OFFICE [facility] 2021-09-24 2021-09-24 Outpatient R WALE [facility] [id number] Univers 20:30:00 20:30:00 ALICE butty o f [facility] 2021-09-20 2021-09-20 Letter GENEVA Padron 1.2.840.114 [id number] Univers 00:00:00 00:00:00 (Out) Julisa MCCLENDON 350.1.13.10 it y of HOSPITAL 4.2.7.2.686 [place] [phone] [address] 2021-09-19 2021-09-19 Orders Doctor GENEVA 1.2.840.114 [id number] Univers 00:00:00 00:00:00 Only Unassigned, HAKAN 350.1.13.10 ity of [place] [facility] 4.2.7.2.686 [place] [phone] [address] 2021-09-18 2021-09-18 Laboratory Only, Ang Db Test [facility] 1.2.8 40.114 [id number] Univers 17:15:00 17:30:00 Only KidderMulugeta [facility] 350.1.13. 10 ity of [place]hn[place] 4.2.7.2.686 [facility]?BLEA [phone] [address] MEDICAL OFFICE BUILDING 2021-09-18 2021-09-18 Outpatient R ORION [facility] [id number] Univers 17:15:00 17:15:00 MEHNAZ ity of [facility] 2021-07-18 2021-07-18 Orders Doctor GENEVA 1.2.840.114 [id number] Univers 00:00:00 00:00:00 Only UnassignedHAKAN 350.1.13.10 ity of [place] [facility] 4.2.7.2.686 [place] [phone] [address] 2021-07-09 2021-07-09 Emergency [facility] [id number] 66 [facility] 10:25:00 10:25:00 23 2021-07-03 2021-07-03 Letter GENEAV Padron 1.2.840.114 [id number] Univers 00:00:00 00:00:00 (Out) Julisa MCCLENDON 350.1.13.10 it y of HOSPITAL 4.2.7.2.686 [place] [phone] [address] 2021-07-02 2021-07-02 Outpatient R [facility] [id number] Univers 13:00:00 13:00:00 ity of [facility] 2021-07-02 2021-07-02 Chica Lyon [facility] 1.2.840.114 [id number] Univers 10:11:08 11:01:54 [facility] 350.1.13.10 ity of [place] 4.2.7.2.686 [place] Tiago?Blea [phone] [facility] [address] [facility] 2021-05-21 2021-05-21 [facility] 1.2.531.564 [id number] Univers 11:23:34 11:43:34 Visit Varun Salcedo 350.1.13.10 it[place] of [place] [phone] [facility] 085 [facility] 2021-05-21 2021-05-21 Outpatient R VARUN HART [facility] [id number] Univers 11:20:00 11:20:00 VARUN HART ity of [facility] 2021-05-20 2021-05-20 Orders Doctor GENVEA 1.2.840.114 [id number] Univers 00:00:00 00:00:00 Only Unassigned, HAKAN 350.1.13.10 ity of [place] [facility]OSPITAL 4.2.7.2.686 [place] [phone] [address] 2021-04-16 2021-04-16 Orders Doctor GENEVA 1.2.840.114 [id number] Univers 00:00:00 00:00:00 Only Unassigned, HAKAN 350.1.13.10 ity of [place] [facility]OSPITAL 4.2.7.2.686 [place] [phone] [address] 2021-03-24 2021-03-24 Orders Doctor GENEVA Carroll.2.840.114 [id number] Univers 00:00:00 00:00:00 Only Unassigned, HAKAN 350.1.13.10 ity of [place] [facility]OSPITAL 4.2.7.2.686 [place] [phone] [facility] [address] 2021-03-19 2021-03-19 Office Youngsarahlynn [facility] 1.2.878.475 [id number] Univers 14:16:29 14:37:02 Visit Varun Bolton [place] 350.1.13.10 it[place] [phone] Wy dicga nal 5 [facility] 2021-03-19 2021-03-19 Outpatient R YOUNGJAYLA NAVAHIL [facility] [id number] Univers 14:00:00 14:00:00 KRISS HARTL itbrittney [facility] 2021-02-13 2021-02-13 Outpatient R KAREN JAYLASHONL [facility] [id number] Univers 19:30:00 19:30:00 KAREN, STRAHIL ity [facility] 2021-02-13 2021-02-13 Business Support Associate 1, [facility] Sleep Lab Bed [facility] 1. 2.840.114 [id number] Univers 13:50:37 16:20:37 Visit Varun Hart [place] 350.1.13. 10 it[place] of [place] [phone] [facility] [address] 2021-02-13 2021-02-13 Orders Karen [facility] 1.2.862.186 [id number] Univers 00:00:00 00:00:00 Only Strahil Che [place] 350.1.13.10 it[place] of [place] [phone] Wy dical nal 085 [facility] 2021-02-11 2021-02-11 Laboratory Only, [facility] Test [facility] 1.2.840. 114 [id number] Univers 09:53:05 10:08:05 Only Eduardo Rizo [place] 350.1.13.10 it[place] of [place] [phone] [facility] [address] 2021-02-11 2021-02-11 Outpatient R [facility] [id number] Univers 09:00:00 09:00:00 ity of [facility] 2021-01-22 2021-01-22 Office Karen [facility] 1.2.116.659 [id number] Univers 16:31:45 17:01:45 Visit Varun Salcedo 350.1.13.10 it[place] of [place] [phone] Wy dical nal 085 [facility] 2021-01-22 2021-01-22 Outpatient R YOUNGJAYLA NAVAMDShannan [facility] [id number] Univers 16:30:00 16:30:00 JAYLA HARTMDShannan ity [facility] 2021-01-03 2021-01-03 Orders Doctor GENEVA 1.2.840.114 [id number] Univers 00:00:00 00:00:00 Only Unassigned, HAKAN 350.1.13.10 [facility] 4.2.7.2.686 [place] [phone] [address] 2020-12-30 2020-12-30 Laboratory Lab, Adc Fam Pob I [facility] 1.2. 840.114 [id number] Univers 11:28:10 11:48:10 Only aCrlos [facility] 350.1.13.10 ity of [place] 4.2.7.2.686 [place] Professio [phone] Wy dicga nal 044 [facility] 2020-12-30 2020-12-30 Outpatient R SHENA [facility] [id number] Univers 11:20:00 11:20:00 CARLOS ALBERTO ity of [facility] 2020-12-27 2020-12-27 Telephone [facility] 1.2.238.569 [id number] Univers 00:00:00 00:00:00 Yari [facility] 350.1.13.10 ity of [place] 4.2.7.2.686 [place] Professio [phone] Wy dical nal 044 [facility] 2020-12-25 2020-12-25 Laboratory Lab, Adc Fam Pob I [facility] 1.2. 840.114 [id number] Univers 18:24:44 18:44:44 Only Yari [facility] 350.1.13.10 ity of [place] 4.2.7.2.686 [place] Professio [phone] Me dical nal [address] [facility] 2020-12-25 2020-12-25 [facility] [id number] Univers 18:20:00 18:20:00 YARI ity o f [facility] 2020-11-28 2020-11-28 Patient [facility] 1.2.840.114 [id number] Univers 00:00:00 00:00:00 Outreach Mulugeta PRIMARY 350.1.13.10 i ty of [facility] [place] [phone] Me dical [address] 2020-11-14 2020-11-14 Hospital [facility] 1.2.840.114 [id number] Univers 08:31:01 23:59:00 Encounter [facility] 350.1.13.10 ity of Surgical 4.2.7.2.686 [place] Specialti [phone] Me dical es 809 [facility] 2020-11-14 2020-11-14 Office [facility] 1.2.840.114 [id number] Univers 08:07:24 09:12:54 Visit [facility] 350.1.13.10 it y of Surgical 4.2.7.2.686 [place] Specialti [phone] Me dical es 198 [facility] 2020-11-14 2020-11-14 Outpatient R [facility] [id number] Univers 08:15:00 08:15:00 GAVIN ity of [facility] 2020-09-12 2020-09-12 Orders Doctor BEAN 1.2.840.114 [id number] Univers 00:00:00 00:00:00 Only Unassigned, HAKAN 350.1.13.10 ity of [place] [facility]ITAL 4.2.7.2.686 [place] [phone] [address] 2020-02-01 2020-02-01 Orders Doctor BEAN 1.2.840.114 [id number] 00:00:00 00:00:00 Only Unassigned, HAKAN 350.1.13.10 ity of [place] [facility] 4.2.7.2.686 [place] [phone] [facility] [address] Results Test Description Test Time Test Comments Results Result Comments Source PROTHROMBIN TIME 2023-05-07 15:57:00 Test Item Value Reference Range Interpretation Comme nts PROTHROMBIN TIME PATIENT (test 11.5 secs 9.4-12.5 N code = PTP) INTERNATIONAL NORMAL RATIO 1.03 <2.0 R ECOMMENDED THERAPEUTIC RANGE FOR (test code = INR) ORAL ANTIC OAGULANTTREATMENT: CONDITION INRPr ophylaxis of venous thrombosis in 2 .0 - 3.0 high-risk medical or surg ical patientsTreatme nt of venous thrombosis 2.0 - 3.0Prevention of embolism 2.0 - 3.0Prevention of recurrent embol ism, or 3.0 - 4.5 patients with m echanical prosthetic intr avascular valves IS PATIENT ON ANTICOAGULANTS ? AKas Lab been notified if Patient is on Heparin Drip? NOTHROMBOPLASTIN TIME [id number] 15:57:00 Test Item Value Reference Range Interpretation Comments PTT ACTIVATED (test code = APTT) 29.8 secs 25.1-36.5 N IS PATIENT ON ANTICOAGULANTS ? AKas Lab been notified if Patient is on Heparin Drip? NOCOMPREHENSIVE METABOLIC [id number] 15:54:00 Test Item Value Reference Range Interpretation Comments SODIUM (test code = 142 mmol/L 136-145 N NA) POTASSIUM (test 4.0 mmol/L 3.5-5.1 N code = K) CHLORIDE (test code 105.0 mmol/L 98-107 N = CL) CARBON DIOXIDE 25.4 mmol/L 21-32 N (test code = CO2) GLUCOSE (test code 106 mg/dL 74-106 N = GLU) BLOOD UREA NITROGEN 17 mg/dL 7-18 N (test code = BUN) GLOMERULAR 96.3 >60 The Glomerular FILTRATION RATE Filtration R ate is a (test code = GFR) calculated parameterbased on serum Creatinin e, patient age and sex. GFR valuesless than 60 mL/min/1.73 squ are meters are vicky cative ofChronic Kidne y Disease. Values less than 15 mL/min/1.73squa re meters indicate Kidney failure. The calculation for GFR is based on the CK D-EPI (2020) calculat ion. This formulais race indifferent and is the recommended for barrera for GFRby the N [facility] Kidney Foundati on for Adults.The GFR will not calculate i f the sex is unknown or if thepatient's ag e is <18 years. CREATININE (test 0.98 mg/dL 0.70-1.30 N code = CREAT) TOTAL PROTEIN (test 6.8 g/dL 6.4-8.2 N code = PROT) ALBUMIN (test code 3.9 g/dL 3.4-5.0 N = ALB) GLOBULIN (test code 2.9 g/dL 2.2-4.2 N = GLOB) ALBUMIN/GLOBULIN 1.3 0.7-2.0 N RATIO (test code = A/G) CALCIUM (test code 9.0 mg/dL 8.5-10.1 N = CA) BILIRUBIN TOTAL 0.50 mg/dL 0.2-1.00 N (test code = BILT) SGOT/AST (test code 27.0 U/L 15-37 N = AST) SGPT/ALT (test code 15.0 U/L 16-63 L = ALT) ALKALINE 52 U/L 46-116 N PHOSPHATASE TOTAL (test code = ALKP) CBC W/AUTO [id number] 15:34:00 Test Item Value Reference Range Interpretation Comments WHITE BLOOD CELL (test 5.9 K/mm3 5.5-11.0 N Pleas e note new code = WBC) normal range. RED BLOOD CELL (test 4.97 M/mm3 4.2-5.4 N code = RBC) HEMOGLOBIN (test code = 15.4 g/dL 12-16 N HGB) HEMATOCRIT (test code = 44.0 % 37-47 N HCT) MEAN CELL VOLUME (test 89 fL 80-98 N code = MCV) MEAN CELL HGB (test code 31.0 pg 27-34 N = MCH) MEAN CELL HGB 35.0 g/dL 30.8-34.1 H CONCENTRATION (test code = MCHC) RED CELL DISTRIBUTION 12.7 % 11-16 N WIDTH (test code = RDW) PLT (test code = PLT) 270 K/mm3 130-400 N MEAN PLATELET VOLUME 10.2 fL 8.9-12.1 N (test code = MPV) NEUTROPHIL % (test code 61.7 % 45-70 N = NT%) LYMPHOCYTE % (test code 27.7 % 20-40 N = LY%) MONOCYTE % (test code = 7.6 % 3-10 N MO%) EOSINOPHIL % (test code 2.0 % 1-5 N = EO%) BASOPHIL % (test code = 0.8 % 0.0-1.1 N BA%) NEUTROPHIL # (test code 3.65 K/mm3 2.00-7.50 N = NT#) LYMPHOCYTE # (test code 1.64 K/mm3 1.50-4.00 N = LY#) MONOCYTE # (test code = 0.45 K/mm3 0.2-0.8 N MO#) EOSINOPHIL # (test code 0.12 K/mm3 0.04-0.4 N = EO#) BASOPHIL # (test code = 0.05 K/mm3 0.02-0.10 N BA#) MANUAL DIFF REQUIRED NO MANUAL DIFF (test code = MDIFF) NUCLEATED RED BLOOD CELL 0 % 0-0 N (test code = NRBC) SARS-CoV-2 (COVID-19) RNA [Presence] in Respiratory specimen by PEREZ with probe [id number] 20:07:20 Test Item Value Reference Range Interpretation Comments SARS-CoV-2 (COVID-19) RNA Not detected [Presence] in Respiratory specimen by PEREZ with probe detection (test code = 47716-0) Whether patient is employed in a Unknown healthcare setting (test code = 37641-7) Whether the patient has symptoms Unknown related to condition of interest (test code = 60691-4) Whether the patient was Unknown hospitalized for condition of interest (test code = 52178-7) Whether the patient was admitted Unknown to intensive care unit (ICU) for condition of interest (test code = 61971-6) Whether patient resides in a Unknown congregate care setting (test code = 22243-8) status (test code = Unknown 05745-6) Date and time of symptom onset Unknown (test code = 03678-0) ASHISH SHINTO WESTComprehensive Metabolic [id number] 11:23:00 Test Item Value Reference Range Interpretation [...] 77 U/L 46-116 N = ALP) Ethanol [id number] 11:23:00 Test Item Value Reference Range Interpretation Comments Ethanol (test code = ETOH) < 3 mg/dL Complete Blood Count Auto [id number] 11:23:00 Test Item Value Reference Range Interpretation [...] (test code = NRBCP) 0 % Drug Screen,[id number] 11:22:00 Test Item Value Reference Range Interpretation [...] Negative code = UPROP) UA, Urinalysis Rflx [id number] 11:22:00 Test Item Value Reference Range Interpretation Comments Color,Urine (test code = Yellow Yellow UCOL) Clarity,Urine (test code = Clear Clear UCLAR) PH,Urine (test code = 6.5 5.5-8.5 UPH.XX) Specific [place],Urine >= 1.030 1.005-1.030 N (test code = [...] (test code = ULEU) Coronavirus PCR, COVID19 [id number] 10:03:00 Test Item Value Reference Range Interpretation Comments Coronavirus PCR, For use under Emergency COVID19 Rapid (test Use Authorization (EUA) code = SARSCOV2) only. Coronavirus PCR, Reference Range: COVID19 Rapid (test Negative code = TMKCHII72.1) SARS-CoV-2 PCR Result: Negative by PCR (test code = SARS-CoV-2 PCR Result:) COVID-19 Status: Asymptomatic
[2023-07-08] MEDS ORDERED: METHYLPREDNISOLONE 125 MG INJ ONE (10:16)
[2023-07-08] MEDS ORDERED: DIPHENHYDRAMINE 50 MG/ML VIAL ONE (10:16)
[2023-07-08] MEDS ORDERED: NA CHLORIDE 0.9% 1,000 ML ONE (10:17)
[2023-07-08] MEDS ORDERED: EPINEPHRINE/PF 1 MG/ML AMP ONE (10:17)
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
[2023-07-08 16:31] VITALS: BP 127/95; O2SAT 97
== END 2023-07-08 11:01 | disposition home or self-care (01) ==
LOC: ER 09:45
DX: S00.461A Insect bite (nonvenomous) of right ear, initial encounter (principal); T78.40XA Allergy, unspecified, initial encounter; E11.9 Type 2 diabetes mellitus without complications; F90.9 Attention-deficit hyperactivity disorder, unspecified type; K57.92 Diverticulitis of intestine, part unspecified, without perforation or abscess without bleeding; E03.9 Hypothyroidism, unspecified
CPT/HCPCS: 96361; 96375; 96372; 96374; 99285; J0171; J1200; J2930; J7030

== ENCOUNTER 2024-03-22 10:12 | Emergency (ER) | payer OTHER ==
--- NOTE | 2024-03-22 10:49 | RAD REPORT ---
EXAM DESCRIPTION: Concepcion Single View03/22/2024 10:42 am CLINICAL HISTORY: Cough COMPARISON: 2018 FINDINGS: The lungs appear clear of acute infiltrate. The heart is normal size IMPRESSION: No acute abnormalities displayed
--- NOTE | 2024-03-22 10:56 | RAD REPORT ---
EXAM DESCRIPTION: CT - Head Brain Wo Cont - 03/22/2024 10:38 am CLINICAL HISTORY: Syncope COMPARISON: none TECHNIQUE: Computed axial tomography of the head was obtained. IV contrast was not requested. All CT scans are performed using dose optimization technique as appropriate and may include automated exposure control or mA/KV adjustment according to patient size. FINDINGS: An intracranial bleed is not seen The ventricles are normal in caliber No significant hypodense areas within the brain visualized No extra-axial fluid collection is noted. Fluid within the sinuses/ mastoids is not seen IMPRESSION: No acute intracranial abnormality is seen If patient's symptoms persist MRI of the brain would be recommended
[2024-03-22 11:22] LABS: Absolute Eosinophils 0.4 K/uL (0-0.5); Absolute Lymphocytes (CBC) 1.6 K/uL (0.7-4.9); Absolute Monocytes 0.5 K/uL (0.1-1.3); Absolute Neutrophil 3.6 K/uL (1.8-8.0); Basophils % 0.8 % (0-1.3); Eosinophils % 6.1 % (0-4.4); Hematocrit 49.5 % (39.6-49.0); Hemoglobin 16.7 g/dL (13.6-17.9); Lymphocytes % 25.9 % (15.3-44.8); MCH 31.1 pg (27.0-35.0); MCHC 33.8 g/dL (32.0-36.0); MCV 91.9 fL (80-100); MPV 8.1 fL (7.6-11.3); Monocytes % 7.6 % (3.3-12.3); Neutrophils % 59.6 % (41.7-73.7); Platelets 265 thou/uL (152-406); RBC Red Blood Cell Count 5.39 M/uL (4.33-5.43); Red Cell Distribution Width 12.8 % (12.1-15.2)
[2024-03-22 11:29] LABS: PT Prothrombin Time 11.6 SECONDS (9.4-12.5); Protime INR 1.06
[2024-03-22 11:44] LABS: Albumin 3.8 g/dL (3.4-5.0); Albumin/Globulin Ratio 1.2 (1.1-1.8); Anion Gap 6.9 mEq/L (5.0-15.0); Bilirubin Direct 0.2 mg/dL (0-0.2); Bilirubin Indirect, Calculated 0.5 mg/dL (0.2-0.8); Bilirubin Total 0.7 mg/dL (0.2-1.0); Globulin 3.2 g/dL (2.3-3.5); Magnesium 2.3 mg/dL (1.6-2.4); Potassium 3.9 mEq/L (3.5-5.1); Troponin High Sensitivity 5.6 pg/mL (<58.9)
[2024-03-22] MEDS ORDERED: NA CHLORIDE 0.9% 1,000 ML ONE ×2 (11:55→12:43)
[2024-03-22 12:14] LABS: Specific Gravity 1.023 (1.005-1.030); Sqamous Epithelial None Seen /HPF (None Seen); Urine Bacteria None Seen /HPF (<20); Urine Bilirubin NEGATIVE (Negative); Urine Blood Negative (Negative); Urine Clarity Turbid (Clear); Urine Color Yellow (Yellow); Urine Culture Reflex Order NOT NEEDED; Urine Glucose NEGATIVE (Negative); Urine Ketones NEGATIVE (Negative); Urine Microscopic Reflex YN ORDER UMIC; Urine Mucus Slight /HPF (None Seen); Urine Nitrite NEGATIVE (Negative); Urine Protein NEGATIVE (Negative); Urine RBC <5 /HPF (None Seen); Urine Urobilinogen Normal (Normal); Urine WBC <5 /HPF (<5); Urine pH 6.5 (5.0-7.0)
[2024-03-22] MEDS ORDERED: ONDANSETRON 4 MG/2 ML VIAL ONE (12:42)
[2024-03-22] MEDS ORDERED: FENTANYL CITR 100 MCG/2 ML ONE (12:42)
[2024-03-22] MEDS ORDERED: KETOROLAC 30 MG/ML INJ ONE (12:42)
[2024-03-22] MEDS ORDERED: TRAMADOL HCL 50 MG TAB ONE (12:54)
--- NOTE | 2024-03-22 13:16 | RAD REPORT ---
EXAM DESCRIPTION: CT - C Spine Wo Con - 03/22/2024 1:04 pm CLINICAL HISTORY: PAIN COMPARISON: No comparisons TECHNIQUE: CT Scan was obtained of the cervical spine without contrast. Reformats were provided in t he sagittal and coronal plane. FINDINGS: No acute fracture of the cervical spine. No traumatic malalignment. No prevertebral edema. No significant focal degenerative changes. No suspicious thyroid nodules or lymphadenopathy. The jc g apices are clear. Displaced C3 through C6 ACDF. No hardware complications . IMPRESSION: No fracture or traumatic malalignment of the cervical spine.
--- NOTE | 2024-03-22 13:25 | RAD REPORT ---
EXAM DESCRIPTION: CTChest Abd Pelvis Wo Con - 03/22/2024 1:05 pm CLINICAL HISTORY: Pain;Trauma COMPARISON: C Spine Wo Con dated 03/22/2024; Head Brain Wo Cont dated 03/22/2024 TECHNIQUE: CT of the chest, abdomen, and pelvis was performed. All CT scans are performed using dose optimization technique as appropriate and may include automated exposure control or mA/KV adjustment according to patient size. FINDINGS: Thorax: Chest Wall: No abnormal mass Lungs: No acute abnormality. Pleura: No effusions or pneumothorax. Kim/Mediastinum: No lymphadenopathy. Circumferential thickened distal esophagus. Aorta/Pulmonary Arteries: Unremarkable Heart: Normal size. Abdomen/Pelvis: Liver: No acute abnormality or suspicious lesions. Biliary: No biliary ductal dilatation. Stomach: No significant focal abnormality. Duodenum: No significant focal abnormality. Pancreas: No significant abnormality. Spleen: No significant abnormality. Adrenal: No suspicious lesions. Kidney/ureter: No hydronephrosis. No renal calculi. Retroperitoneum: No retroperitoneal adenopathy. Vascular: No aneurysm. Bowel: No significant focal abnormality. Peritoneum: No ascites or free air. Prior ventral wall repair. Normal appendix . Bladder: Grossly unremarkable. Reproductive: Prostatomegaly . Bones: Pars defects at L5-S1 mild anterolisthesis. No acute fracture. . Other: n/a IMPRESSION: No acute findings within the chest, abdomen, or pelvis.
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
[2024-03-22 16:08] VITALS: BP 136/108; TEMP 97.4; O2SAT 100
--- NOTE | 2024-03-23 10:56 | EKG ---
Test Date: 2024-03-22 Test Time: 11:15:18 Travel Professional: MICHA MEASUREMENT RESULTS: Intervals: Rate: 71 [place]: 140 QRSD: 98 QT: 376 QTc: 408 [place]: P: 40 OH: 140 QRS: 67 T: 27 INTERPRETIVE STATEMENTS: Normal sinus rhythm Incomplete right bundle branch block Possible Anterior infarct, age undetermined Abnormal ECG Compared to ECG 04/25/2021 15:10:19 No significant changes Electronically Signed On 03-23-24 10:54:42 CDT by Roe Valdez
--- NOTE | 2024-03-27 16:47 | EKG ---
Test Date: 2024-03-22 Test Time: 11:15:46 Television News Photographer: MICHA MEASUREMENT RESULTS: Intervals: Rate: 70 [place]: 146 QRSD: 94 QT: 376 QTc: 406 [place]: P: 40 NC: 146 QRS: 68 T: 22 INTERPRETIVE STATEMENTS: Normal sinus rhythm Incomplete right bundle branch block Anterior infarct, age undetermined Abnormal ECG Compared to ECG 03/22/2024 11:15:18 No significant changes Electronically Signed On 03-27-24 16:37:23 CDT by Keith Hartley
== END 2024-03-22 14:07 | disposition home or self-care (01) ==
LOC: ER 10:12
DX: R55 Syncope and collapse (principal); S09.90XA Unspecified injury of head, initial encounter; M43.16 Spondylolisthesis, lumbar region; S39.092A Other injury of muscle, fascia and tendon of lower back, initial encounter; W18.30XA Fall on same level, unspecified, initial encounter
CPT/HCPCS: 96361; 93005 ×2; 85025; 81001; 80048; 36415; 83735; 85610; 82947; 80076; 84484; 83880; 70450; 71250; 72125; 74176; 71045; 96375; 96374; 99285; J3010; J2405; J7030 ×2